=== PATIENT | male | born 1970 | race Caucasian/White ===

== ENCOUNTER 2023-01-14 08:50 | Outpatient (REF) | payer MEDICAID, SELFPAY ==
[2023-01-14 12:15] LABS: Alanine Aminotransferase 22 U/L (0-40); Albumin Level 4.2 g/dL (3.5-5.0); Alkaline Phosphatase 61 U/L (39-117); Anion Gap 11 (12-20); Aspartate Amino Transferase 18 U/L (5-37); Bilirubin Total 1.7 mg/dL (0.0-1.0); Blood Urea Nitrogen 17 mg/dL (9-16); Calcium 9.2 mg/dL (8.4-10.2); Carbon Dioxide 29 mmol/L (22-29); Chloride 105 mmol/L (96-108); Cholesterol 199 mg/dL (<200); Estimated Glomerular Filt Rate > 60; Glucose Random 109 mg/dL (60-115); HDL Cholesterol 34 mg/dL (>40); LDL Cholesterol Calculated 138 mg/dL (<100); Potassium 3.6 mmol/L (3.3-5.1); Sodium 141 mmol/L (135-145); Total Protein 7.7 g/dL (6.5-8.0); Triglycerides 138 mg/dL (<150)
== END 2023-01-14 08:51 | disposition home or self-care (01) ==
LOC: HO.HHCL 08:50
PROVIDERS: Visit Provider Internal Medicine Geriatric Medicine
DX: R73.03 Prediabetes (principal); E78.00 Pure hypercholesterolemia, unspecified
CPT/HCPCS: 36415; 80053; 80061

== ENCOUNTER 2023-01-21 08:13 | Outpatient (REF) | payer MEDICAID, SELFPAY ==
[2023-01-21 11:35] LABS: MANUAL DIFF FLAG NO
[2023-01-21 12:00] LABS: Basophils Absolute Auto 0.1 X10*3/uL (0.0-0.2); Basophils Percent Auto 0.7 % (0-2); Eosinophils Absolute Auto 0.1 X10*3/uL (0.0-0.4); Eosinophils Percent Auto 1.6 % (0-4); Hematocrit 45.1 % (42.0-52.0); Hemoglobin 14.3 g/dl (14.0-18.0); Imm Gran Abs Auto 0.03 X10*3/uL (0.00-0.03); Imm Gran Pct Auto 0.4 % (0.0-0.4); Lymphocytes Percent Auto 27.1 % (20-40); Mean Corpuscular HGB Conc 31.7 g/dl (31.0-36.0); Mean Corpuscular Hemoglobin 29.7 pg (27.0-33.0); Mean Corpuscular Volume 93.8 fL (80.0-98.0); Monocytes Absolute Auto 0.6 X10*3/uL (0.1-1.2); Monocytes Percent Auto 8.6 % (2-11); Neutrophils Absolute Auto 4.5 x10*3/uL (2.0-8.3); Neutrophils Percent Auto 61.6 % (45-73); Platelet Count 277 X10*3/uL (160-400); Red Blood Count 4.81 X10*6/uL (4.60-5.80); Red Cell Distribution Width 13.6 % (11.0-16.0); White Blood Count 7.3 X10*3/uL (4.8-10.8)
[2023-01-21 12:34] LABS: Alanine Aminotransferase 22 U/L (0-40); Alkaline Phosphatase 57 U/L (39-117); Aspartate Amino Transferase 19 U/L (5-37); Bilirubin Direct 0.3 mg/dL (0.0-0.5); Bilirubin Total 1.2 mg/dL (0.0-1.0); Lactate Dehydrogenase 259 U/L (118-273); Total Protein 7.4 g/dL (6.5-8.0)
[2023-01-21 23:22] LABS: Haptoglobin 134 MG/DL ((30-200))
== END 2023-01-21 08:14 | disposition home or self-care (01) ==
LOC: HO.HHCL 08:13
PROVIDERS: Visit Provider Internal Medicine Geriatric Medicine
DX: E80.6 Other disorders of bilirubin metabolism (principal)
CPT/HCPCS: 36415; 80076; 83010; 83615; 85025

== ENCOUNTER 2023-06-17 08:01 | Outpatient (REF) | payer MEDICAID, SELFPAY ==
[2023-06-17 12:25] LABS: Anion Gap 15 (12-20); Blood Urea Nitrogen 18 mg/dL (9-16); Calcium 9.2 mg/dL (8.4-10.2); Carbon Dioxide 24 mmol/L (22-29); Chloride 105 mmol/L (96-108); Estimated Glomerular Filt Rate > 60; Glucose Random 100 mg/dL (60-115); Potassium 3.8 mmol/L (3.3-5.1); Sodium 140 mmol/L (135-145)
[2023-06-17 13:12] LABS: Prostate Specific Antigen 1.74 ng/mL (<0.05-4.0)
== END 2023-06-17 08:02 | disposition home or self-care (01) ==
LOC: HO.HHCL 08:01
PROVIDERS: Visit Provider Internal Medicine Geriatric Medicine
DX: I10 Essential (primary) hypertension (principal); Z12.5 Encounter for screening for malignant neoplasm of prostate
CPT/HCPCS: 36415; 80048; 84153

== ENCOUNTER 2023-12-13 10:58 | Outpatient (REF) | payer MEDICAID, SELFPAY ==
[2023-12-13 14:24] LABS: Alanine Aminotransferase 25 U/L (0-40); Albumin Level 4.1 g/dL (3.5-5.0); Alkaline Phosphatase 54 U/L (39-117); Anion Gap 11 (12-20); Aspartate Amino Transferase 21 U/L (5-37); Bilirubin Total 1.2 mg/dL (0.0-1.0); Blood Urea Nitrogen 15 mg/dL (9-16); Calcium 9.1 mg/dL (8.4-10.2); Carbon Dioxide 28 mmol/L (22-29); Chloride 106 mmol/L (96-108); Cholesterol 218 mg/dL (<200); Estimated Glomerular Filt Rate > 60; Glucose Random 98 mg/dL (60-115); HDL Cholesterol 38 mg/dL (>40); LDL Cholesterol Calculated 155 mg/dL (<100); Potassium 3.9 mmol/L (3.3-5.1); Sodium 141 mmol/L (135-145); Total Protein 7.5 g/dL (6.5-8.0); Triglycerides 125 mg/dL (<150)
== END 2023-12-13 10:59 | disposition home or self-care (01) ==
LOC: HO.HHCL 10:58
PROVIDERS: Visit Provider Internal Medicine Geriatric Medicine
DX: I10 Essential (primary) hypertension (principal); Z53.20 Procedure and treatment not carried out because of patient's decision for unspecified reasons; L21.9 Seborrheic dermatitis, unspecified
CPT/HCPCS: 36415; 80053; 80061

== ENCOUNTER 2024-12-11 14:21 | Outpatient (REF) | payer MEDICAID, SELFPAY ==
[2024-12-11 16:14] LABS: MANUAL DIFF FLAG NO
[2024-12-11 16:20] LABS: Hematocrit 45.1 % (42.0-52.0); Hemoglobin 14.5 g/dl (14.0-18.0); Imm Gran Abs Auto 0.07 X10*3/uL (0.00-0.03); Imm Gran Pct Auto 0.5 % (0.0-0.4); Lymphocytes Absolute Auto 2.1 X10*3/uL (1.2-4.9); Mean Corpuscular HGB Conc 32.2 g/dl (31.0-36.0); Mean Corpuscular Hemoglobin 30.0 pg (27.0-33.0); Mean Corpuscular Volume 93.2 fL (80.0-98.0); NRBC Abs Auto 0.000 X10*3/uL (0.0-0.012); NRBC Pct Auto 0.0 /100WBC (0.0-0.2); Platelet Count 277 X10*3/uL (160-400); Red Blood Count 4.84 X10*6/uL (4.60-5.80); White Blood Count 12.8 X10*3/uL (4.8-10.8)
[2024-12-11 16:41] LABS: Alanine Aminotransferase 22 U/L (0-40); Albumin Level 4.3 g/dL (3.5-5.0); Alkaline Phosphatase 61 U/L (39-117); Anion Gap 11 (12-20); Aspartate Amino Transferase 17 U/L (5-37); Blood Urea Nitrogen 15 mg/dL (9-16); Calcium 8.9 mg/dL (8.4-10.2); Carbon Dioxide 28 mmol/L (22-29); Chloride 105 mmol/L (96-108); Cholesterol 193 mg/dL (<200); Estimated Glomerular Filt Rate > 60; HDL Cholesterol 39 mg/dL (>40); Potassium 4.2 mmol/L (3.3-5.1); Sodium 140 mmol/L (135-145); Total Protein 7.7 g/dL (6.5-8.0); Triglycerides 144 mg/dL (<150)
[2024-12-11 16:42] LABS: Hemoglobin A1C 150.1154 umol/L
[2024-12-11 16:50] LABS: Prostate Specific Antigen 1.64 ng/mL (<0.05-4.0)
== END 2024-12-11 14:22 | disposition home or self-care (01) ==
LOC: HO.HHCL 14:21
PROVIDERS: PCP Internal Medicine Geriatric Medicine; Visit Provider Internal Medicine
DX: R10.32 Left lower quadrant pain (principal); R73.03 Prediabetes; R03.0 Elevated blood-pressure reading, without diagnosis of hypertension; E78.00 Pure hypercholesterolemia, unspecified; E66.9 Obesity, unspecified; Z53.20 Procedure and treatment not carried out because of patient's decision for unspecified reasons; Z12.5 Encounter for screening for malignant neoplasm of prostate
CPT/HCPCS: 36415; 80053; 80061; 83036; 84153; 85025; 85652

== ENCOUNTER 2024-12-12 14:32 | Inpatient (IN) | payer MEDICAID, SELFPAY ==
--- OUTSIDE RECORDS SUMMARY | 2024-12-11 13:40 | XMS_ITS | Encounter Summary ---
Author Organization [employer] Address [address] [place] [address] 7 [place] [address] Care Team Providers Care Information Assurance Analyst Name Role Phone Name, Marv SALAZAR Primary Care Provider [phone] Reason for Visit * Reason Comments Abdominal Pain CO LLQ pain since Encounter Details Date Type Department Care Team (Late st Contact Info) Description 12/11/2024 1:40 PM EST Office Visit [facility] [address] [place] [address] [phone] Tamara Contreras MD [address] [place] [address] Left lower quadrant abdominal pain (Primary Dx); Diverticulosis of colon Social History Tobacco Use Types Packs/Day Years Used Date Smoking Tobacco: Never Smokeless Tobacco: Never Alcohol Use Standard Drinks/Week Comments Never 0 (1 standard drink = 0.6 oz pur e alcohol) Depression Answer Date Recorded Patient Health Questionnaire-9 Score 0 09/22/2023 Patient Health Questionnaire-9 Score 0 09/22/2023 Last PHQ-9: Questionnaire Data Not on file 0 09/22/2023 Housing Stability Answer Date Recorded What is your housing situation today? I have jaki sing 09/22/[address] you li ve. Do you have problems with any of the following? None of the above 09/22/2023 Food Insecurity Answer Date Recorded Within the past 12 months, y ou worried that your food would run out before you got money to buy more: Never True 09/22/2023 Within the past 12 months,th e food you bought just didn't last and you didn't have enough money to get more: Never True Transportation Answer Date Recorded In the past 12 months, has l ack of transportation kept you from medical appts, meetings, work or from getting things needed for daily living? No 09/22/2023 Utilities Answer Date Recorded In the past 12 months, has t he electric, gas, oil or water company threatened to shut off services in your home? No 09/22/2023 Depression Answer Date Recorded Patient Health Questionnaire-2 Score 0 09/22/2023 Internet Access Answer Date Recorded Internet Access Q1 Yes 10/11/2023 Internet Access Q2 Not on file 10/11/2023 Sex and Gender Information Value Date Recorded Sex Assigned at Male 12/08/2021 10:23 AM EDT Legal Sex Male 10:23 AM EDT Gender Identity Male 12/08/2021 10:23 AM EDT Sexual Orientation Don't know 12/08/2021 10 :23 AM EDT documented as of this encounter Last Filed Vital Signs Vital Sign Reading Time Taken Comments Blood Pressure 144/88 12/11/2024 1:37 PM EST Pulse 72 12/11/2024 1:37 PM EST Temperature 37.5 C (99.5 F) 12/11/2024 1:37 PM EST Respiratory Rate 18 12/11/2024 1:37 PM EST Oxygen Saturation - - Inhaled Oxygen Concentration - - Weight 117 kg (258 lb 9.6 oz) 12/11/2024 1:37 PM EST Height 177.8 cm (5' 10 ) 12/11/2024 1:37 PM EST Body Mass Index 37.11 12/11/2024 1:37 PM EST documented in this encounter Progress Notes * Tamara Contreras MD - 12/11/2024 1:40 PM EST SUBJECTIVE: Jaziel Barrett is a 54 y.o. year old male who presents for [facility]/abdominal pain. Denies recent illness, injury, or hospitalization. Acute Concerns: Abdominal Pain and Gastrointestinal Symptoms Pat co intermittent lower abdominal pain described as colicky and lasting 7-10 seconds per episode x 2d. The pain is triggered by palpation and sometimes occurs spontaneously, with episodes more pronounced when lying down. Reports associated chills at night x 1, but denies fever, nausea, vomiting, or urinary symptoms. Had diarrhea #1, now resolved, had small BM this AM. on Wednesday morning, stool was described as black in color, but not bloody. No prior similar episodes with fatty or pork foods; this is the first occurrence. Consumed pork and alcohol on Wednesday night prior to symptom onset. Drinks alcohol socially on weekends, denies drug use. Social History Social History Narrative Not on file Problem List[1] Family History[2] Review of Systems Constitutional: Negative for fever. HENT: Negative for congestion, ear pain, rhinorrhea and sore throat. Eyes: Negative for pain and discharge. Respiratory: Negative for cough and shortness of breath. Cardiovascular: Negative for chest pain. Gastrointestinal: Positive for abdominal pain. Negative for constipation, diarrhea and nausea. Endocrine: Negative for polydipsia. Genitourinary: Negative for dysuria and frequency. Musculoskeletal: Negative for arthralgias, back pain and neck pain. Neurological: Negative for dizziness, numbness and headaches. Psychiatric/Behavioral: Negative for agitation. OBJECTIVE: Vitals: 12/11/24 1337 BP: (!) 144/88 Pulse: 72 Resp: 18 Temp: 99.5 ??F (37.5 ??C) Physical Exam Exam conducted with a cottage master present (Nicole Mak MA). Constitutional: Appearance: Normal appearance. HENT: Right Ear: Tympanic membrane and ear canal normal. Left Ear: Tympanic membrane and ear canal normal. Mouth/Throat: Mouth: Mucous membranes are moist. Pharynx: No oropharyngeal exudate or posterior oropharyngeal erythema. Eyes: Pupils: Pupils are equal, round, and reactive to light. Cardiovascular: Rate and Rhythm: Normal rate and regular rhythm. Heart sounds: No murmur heard. Pulmonary: Breath sounds: Normal breath sounds. No wheezing. Abdominal: General: Bowel sounds are normal. Palpations: Abdomen is soft. Tenderness: There is abdominal tenderness in the suprapubic area and left lower quadrant. There is rebound. There is no right CVA tenderness, left CVA tenderness or guarding. Negative signs include De Jesus's sign and McBurney's sign. Genitourinary: Prostate: Normal. Rectum: Normal. Guaiac result negative. No mass, tenderness or anal fissure. Normal anal tone. Musculoskeletal: General: No tenderness. Normal range of motion. Cervical back: Normal range of motion. No tenderness. Skin: General: Skin is warm. Neurological: General: No focal deficit present. Mental Status: He is alert and oriented to person, place, and time. Psychiatric: Mood and Affect: Mood normal. Problem List Items Addressed This Visit Diverticulosis of colon Suspected diverticulitis: - Suspected diverticulitis with colonic inflammation, likely not infectious at this time. - Recommended clear liquid diet (broth, water, clear fluids) for the remainder of the day, with gradual reintroduction of small amounts of rice or pasta in the evening if tolerated. Advised to continue clear liquids and bland diet for 2-3 days, then slowly advance to chicken and other foods as tolerated. - Prescribed Senna lynne for daily BM, hold for diarrhea + Bentyl prn abd pain x 3-4d . - Order labs, will rx abs if evidence of significant inflamation, recurrent fever. - Advised to monitor for fever or worsening symptoms and RTC prn Relevant Medications sennosides (Senokot) 8.6 MG tablet dicyclomine (Bentyl) 10 MG capsule Other Visit Diagnoses Left lower quadrant abdominal pain - Primary Relevant Medications sennosides (Senokot) 8.6 MG tablet dicyclomine (Bentyl) 10 MG capsule Other Relevant Orders CBC auto differential (Completed) Sed Rate by Modified W[place]gren (Completed) Basic Metabolic Panel This note was drafted using Ambient (AI) technology. The patient/patient's guardian has been informed and has consented to the use of this technology: Yes Follow Up: Medications Ordered Prior to Encounter[3] [1] Patient Active Problem List Diagnosis Genital herpes simplex Obesity Prediabetes History of colonoscopy Essential hypertension Chronic left shoulder pain Gilbert syndrome High cholesterol Diverticulosis of colon [2] No family history on file. [3] Current Outpatient Medications on File Prior to Visit Medication Sig Dispense Refill acyclovir (Zovirax) 400 MG tablet TAKE 1 TABLET BY MOUTH THREE TIMES DAILY FOR 10 DAYS 30 tablet 5 atorvastatin (Lipitor) 20 MG tablet Take 1 tablet (20 mg) by mouth Once per day. 30 tablet 11 BENZAC AC WASH 10 % external wash APPLY TOPICALLY EVERY DAY, LEAVE IN SHOWER 237 g 1 Blood Pressure kit Use once a day 1 kit 0 clotrimazole (Lotrimin) 1 % cream APPLY TO AFFECTED AREA(S) AND SURROUNDING AREA(S) TWICE DAILY IN THE MORNING AND EVENING 60 g 2 Diclofenac Sodium 1 % gel APPLY 2 GRAMS TOPICALLY TO AFFECTED AREA(S) TWICE DAILY IN THE MORNING AND AT BEDTIME NEEDED 100 g 3 ibuprofen 600 MG tablet TAKE 1 TABLET BY MOUTH THREE TIMES DAILY 90 tablet 1 lidocaine (Lidoderm) 5 % patch APPLY 1 PATCH TOPICALLY TO SKIN, LEAVE ON FOR 12 HOURS AND OFF FOR 12 HOURS DIRECTED 30 patch 2 No current facility-administered medications on file prior to visit. documented in this encounter Miscellaneous Notes * Patient Education Note - Tamara Contreras MD - 12/11/2024 7:07 PM EST Images from the original note were not included. Patient Education Table of Contents Diverticulitis To view videos and all your education online visit, [email or web address] or scan this QR code with your smartphone. Access to this content will in one year. Diverticulitis Diverticulitis La diverticulitis ocurre cuando la materia fecal (heces) y las bacterias quedan atrapadas en giacomo?as bolsas en el colon llamadas divert?culos. Estas bolsas se pueden formar si usted tiene leidy afecci?n llamada diverticulitis. Cuando la materia fecal y las bacterias quedan atrapadas, pueden causar infecci?n e inflamaci?n. La diverticulitis puede causar dolor intenso de est?geraldine y diarrea. Tambi?n puede generar da?o tisular en el colon. [place] puede causar sangrado u obstrucci?n. En algunos casos, los divert?culos puedenexplotar (romperse). [place] puede hacer que las heces infectadas penetren en otras partes del abdomen. ?Cu?les son las causas? La causa de esta afecci?n es que las heces quedan atrapadas en los divert?culos. [place] permite que las bacterias se reproduzcan. [place] puede generar inflamaci?n e infecci?n. ?Qu?? incrementa el riesgo? Es m?s probable que contraiga esta afecci?n si tiene diverticulosis. Usted tambi?n puede tener m?s riesgo si: Tiene sobrepeso u obesidad. No realiza suficiente actividad f?neisha. Erika alcohol. Fuma. Come denise carne enoc, yessica carne de selin, cerdo o bragg. No consume suficiente fibra. Los alimentos ricos en fibra incluyen frutas, verduras, frijoles, gregorio secos y cereales integrales. Tiene m?s de 40 a?os de edad. ?Cu?les son los signos o s?ntomas? Los s?ntomas de esta afecci?n pueden incluir los siguientes: Dolor y sensibilidad en el abdomen. Tiffanie dolor suele manifestarse en el lado eduardo, anna marie puede ocurrir tambi?n en otras zonas. Fiebre y escalofr?os. N?useas y v?mitos. Calambres. Meteorismo. Cambios en la frecuencia de las deposiciones. [place] en las heces. ?C?mo se diagnostica? Esta afecci?n se diagnostica en funci?n de robb antecedentes m?dicos y de un examen f?sico. Es posible que deba someterse a pruebas para descartar otros motivos que est?n causando la afecci?n. Estas pruebas pueden incluir lo siguiente: An?lisis de arnulfo. An?lisis realizados en el pis (orina). Exploraci?n por tomograf?a computarizada (TC) del abdomen. Es posible que necesite someterse a leidy colonoscop?a. Se trata de un estudio que se realiza para examinar todo el intestino grueso. Librado el estudio, se coloca un tubo en la abertura de las nalgas (ano) y luego se lo introduce en el recto, el colon y otras partes del intestino grueso. Tiffanie estudio se realiza para observar los divert?culos. Tambi?n se puede dori si hay algo m?s que pueda estar causando los s?ntomas. ?C?mo se trata? La mayor?a de los casos son leves y pueden tratarse en el hogar. Es posible que le indiquen lo siguiente: Kaye analg?sicos de venta marshall. Beber solamente l?quidos kiya. Kaye antibi?ticos. [place]. Puede que los casos m?s graves deban tratarse en el hospital. El tratamiento puede incluir: No comer ni beber nada. Kaye analg?sicos. Recibir antibi?ticos por v?a intravenosa. Recibir l?quidos y alimentos por v?a intravenosa. Cirug?a. Siga estas instrucciones en fregoso casa: Medicamentos Use los medicamentos de venta marshall y los recetados solamente yessica se lo haya indicado el m?dico. Estos incluyen suplementos de fibra, probi?ticos y medicamentos para ablandar las heces (laxantes). Si le recetaron antibi?ticos, t?melos yessica se lo haya indicado el m?dico. No deje de usar el antibi?kyle aunque comience a sentirse mejor. Preg?ntele al m?dico si el medicamento recetado le impide conducir o usar maquinaria. Comida y bebida Siga la dieta yessica se lo haya indicado el m?dico. Es posible que solo deba comer y beber l?quidos. Despu?s de que los s?ntomas mejoren, es posible que pueda volver a leidy dieta m?s normal. Le pueden indicar que coma al menos 25 gramos (25?g) de fibra por d?a. La fibra hace que sea m?s f?cil defecar. Las flower saludables de fibra incluyen: ? Bayas. Leidy taza tiene de 4 a 8?g de fibra. ? Frijoles y lentejas. La mitad de leidy taza tiene de 5 a 8?g de fibra. ? Verduras de hoja charlene. Leidy taza tiene 4?g de fibra. Evite comer carne enoc. Instrucciones generales No consuma julio?n producto que contenga nicotina o tabaco. Estos productos incluyen cigarrillos, tabaco para mascar y aparatos de vapeo, yessica los cigarrillos electr?nicos. Si necesita ayuda para dejar de fumar, consulte al m?dico. Realice al menos 30 minutos de ejercicio, 3 veces por semana. Manuela ejercicio con leidy intensidad suficiente yessica para aumentar la frecuencia card?caryl y provocar sudor. Comun?quese con un m?dico si: El dolor empeora. Las deposiciones no vuelven a la normalidad. Los s?ntomas no mejoran con el tratamiento. Los s?ntomas empeoran de manera repentina. Tiene fiebre. Vomita m?s de leidy vez. Las heces son sanguinolentas, negras o alquitranadas. Esta informaci?n no tiene yessica fin reemplazar el consejo del m?dico. Aseg?rese de hacerle al m?dicocualquier pregunta que tenga. Document Released: 2005-11-04 Document Updated: 2022-11-26 Document Reviewed: 2022-11-26 Elsevier Patient Education ? 2024 [employer] * Assessment & Plan Note - Tamara Contreras MD - 12/11/2024 5:10 PM EST Associated Problem(s): Diverticulosis of colon Suspected diverticulitis: - Suspected diverticulitis with colonic inflammation, likely not infectious at this time. - Recommended clear liquid diet (broth, water, clear fluids) for the remainder of the day, with gradual reintroduction of small amounts of rice or pasta in the evening if tolerated. Advised to continue clear liquids and bland diet for 2-3 days, then slowly advance to chicken and other foods as tolerated. - Prescribed Senna lynne for daily BM, hold for diarrhea + Bentyl prn abd pain x 3-4d . - Order labs, will rx abs if evidence of significant inflamation, recurrent fever. - Advised to monitor for fever or worsening symptoms and RTC prn documented in this encounter Plan of Treatment Upcoming Encounters Date Type Department Care Team (Late st Contact Info) Description 12/13/2024 4:00 PM EST Office Visit [facility] [address] [place] [phone] Name, MD Marv [address] [place] [phone] 12/19/2024 9:30 AM EST Office Visit [address] [phone] Name, MD Marv [address] [place] [phone] Scheduled Orders Name Type Priority Associated Diagnoses Orde r Schedule Basic Metabolic Panel Lab Routine Left lower quadrant abdominal pain Expected: 12/11/2024 (Approximate), Expires: 12/11/2025 documented as of this encounter Procedures Procedure Name Priority Date/Time Associated Diagnosis Comments CBC WITH AUTO DIFFERENTIAL Routine 12/11/2024 2:27 PM EST Left lower quadrant abdominal pain SED RATE BY MODIFIED WESTERGREN Routine 12/11/2024 2:27 PM EST Left lower quadrant abdominal pain documented in this encounter Results * (ABNORMAL) Sed Rate by Modified [place] (12/11/2024 2:27 PM EST) Erythrocyte Sedimentation Rate 22(H) 0 - 15 MM/HR [facility] Comment:Patients with polycy themia and many hemoglobin abnormalitiesmay have depressed sed rates whereas patients with anemiamay have elevated sed rates. Blood Venous blood specimen / Unknown 12/11/2024 2:27 PM EST 12/11/2024 4:08 PM EST us Tamara Contreras MD LAB BLOOD ORDERABLES Fin al Result [facility] [address] [place] [phone] * (ABNORMAL) CBC auto differential (12/11/2024 2:27 PM EST) White Blood Count 12.8(H) 4.8 - 10.8 X10*3/uL [facility] Red Blood Count 4.84 4.60 - 5.80 X10*6/uL [facility] Hemoglobin 14.5 14.0 - 18.0 g/dl [facility] Hematocrit 45.1 42.0 - 52.0 % [facility] Mean Corpuscular Volume 93.2 80.0 - 98.0 fL [facility] Mean Corpuscular Hemoglobin 30.0 27.0 - 33.0 pg [facility] Mean Corpuscular HGB Conc 32.2 31.0 - 36.0 g/dl [facility] Red Cell Distribution Width 13.5 11.0 - 16.0 % [facility] Platelet Count 277 160 - 400 X10*3/uL [facility] Mean Platelet Volume 9.7 9.4 - 12.4 fL [facility] Neutrophils Percent Auto 73.2(H) 45 - 73 % [facility] Imm Gran Pct Auto 0.5(H) 0.0 - 0.4 % [facility] Lymphocytes Percent Auto 16.4(L) 20 - 40 % [facility] Monocytes Percent Auto 8.8 2 - 11 % [facility] Eosinophils Percent Auto 0.6 0 - 4 % [facility] Basophils Percent Auto 0.5 0 - 2 % [facility] NRBC Pct Auto 0.0 0.0 - 0.2 /100WBC [facility] Neutrophils Absolute Auto 9.3(H) 2.0 - 8.3 x10*3/uL [facility] Imm Gran Abs Auto 0.07(H) 0.00 - 0.03 X10*3/uL [facility] Lymphocytes Absolute Auto 2.1 1.2 - 4.9 X10*3/uL [facility] Monocytes Absolute Auto 1.1 0.1 - 1.2 X10*3/uL [facility] Eosinophils Absolute Auto 0.1 0.0 - 0.4 X10*3/uL [facility] Basophils Absolute Auto 0.1 0.0 - 0.2 X10*3/uL [facility] NRBC Abs Auto 0.000 0.0 - 0.012 X10*3/uL [facility] Blood Venous blood specimen / Unknown 12/11/2024 2:27 PM EST 12/11/2024 4:08 PM EST us Tamara Contreras MD LAB BLOOD ORDERABLES Fin al Result Performing Organization Address City/State/[facility] Co de Phone Number [facility] [address] [place] [phone] documented in this encounter Visit Diagnoses Diagnosis Left lower quadrant abdominal pain- Primary Diverticulosis of colon Diverticulosis of colon (without mention of hemorrhage) documented in this encounter Additional Health Concerns Assessment Noted Time PHQ-9 Depression Total Score: 0 09/22/19 24 3:03 PM EDT documented as of this encounter Care Teams Information Assurance Analyst Relationship Specialty Start Date End Date Name, MD Marv [address] [place] [address] PCP - General Family Medicine 03/28/15 documented as of this encounter
--- OUTSIDE RECORDS SUMMARY | 2024-12-11 13:40 | XMS_ITS | Encounter Summary ---
Author Organization [employer] Address [address] [place] [address] [address] [place] [address] Care Team Providers Care Beauty Culture Teacher Name Role Phone Name, Marv SALAZAR Primary Care Provider [phone] Reason for Visit * Reason Comments Abdominal Pain CO LLQ pain since Encounter Details Date Type Department Care Team (Late st Contact Info) Description 12/11/2024 1:40 PM EST Office Visit [facility] [address] [place] [address] [phone] Tamara Contreras MD [address] [place] [address] Left lower quadrant abdominal pain (Primary Dx); [...] ??C) Physical Exam Exam conducted with a camper assembler present (Nicole Mak MA). Constitutional: Appearance: Normal [...] videos and all your education online visit, [email or web address] or scan this QR code with your [...] puede generar da?o tisular en el colon. [place] puede causar sangrado u obstrucci?n. En algunos casos, los divert?culos puedenexplotar (romperse). [place] puede hacer que las heces infectadas penetren en otras partes del abdomen. ?Cu?les son las causas? La causa de esta afecci?n es que las heces quedan atrapadas en los divert?culos. [place] permite que las bacterias se reproduzcan. [place] puede generar inflamaci?n e infecci?n. ?Qu?? incrementa [...] marshall. Beber solamente l?quidos kiya. Kaye antibi?ticos. [place]. Puede que los casos m?s graves deban [...] Reviewed: 2022-11-26 Elsevier Patient Education ? 2024 [employer] * Assessment & Plan Note - [...] Care Team (Late st Contact Info) Description 12/19/2024 9:30 AM EST Office Visit [facility] [address] [place] [address] Name, MD aMrv [address] [place] [phone] Scheduled Orders Name Type Priority Associated Diagnoses [...] Results * (ABNORMAL) Sed Rate by Modified [place] (12/11/2024 2:27 PM EST) Erythrocyte Sedimentation Rate 22(H) 0 - 15 MM/HR [facility] Comment:Patients with polycy themia and many hemoglobin abnormalitiesmay have depressed sed rates whereas patients with anemiamay have elevated sed rates. Blood Venous blood specimen / Unknown 12/11/2024 2:27 PM EST 12/11/2024 4:08 PM EST us Tamara Contreras MD LAB BLOOD ORDERABLES Fin al Result [facility] [address] [place], [place] [phone] * (ABNORMAL) CBC auto differential (12/11/2024 2:27 PM EST) White Blood Count 12.8(H) 4.8 - 10.8 X10*3/uL [facility] Red Blood Count 4.84 4.60 - 5.80 X10*6/uL [facility] Hemoglobin 14.5 14.0 - 18.0 g/dl [facility] Hematocrit 45.1 42.0 - 52.0 % [facility] Mean Corpuscular Volume 93.2 80.0 - 98.0 fL [facility] Mean Corpuscular Hemoglobin 30.0 27.0 - 33.0 pg [facility] Mean Corpuscular HGB Conc 32.2 31.0 - 36.0 g/dl [facility] Red Cell Distribution Width 13.5 11.0 - 16.0 % [facility] Platelet Count 277 160 - 400 X10*3/uL [facility] Mean Platelet Volume 9.7 9.4 - 12.4 fL [facility] Neutrophils Percent Auto 73.2(H) 45 - 73 % [facility] Imm Gran Pct Auto 0.5(H) 0.0 - 0.4 % [facility] Lymphocytes Percent Auto 16.4(L) 20 - 40 % [facility] Monocytes Percent Auto 8.8 2 - 11 % [facility] Eosinophils Percent Auto 0.6 0 - 4 % [facility] Basophils Percent Auto 0.5 0 - 2 % [facility] NRBC Pct Auto 0.0 0.0 - 0.2 /100WBC [facility] Neutrophils Absolute Auto 9.3(H) 2.0 - 8.3 x10*3/uL [facility] Imm Gran Abs Auto 0.07(H) 0.00 - 0.03 X10*3/uL [facility] Lymphocytes Absolute Auto 2.1 1.2 - 4.9 X10*3/uL [facility] Monocytes Absolute Auto 1.1 0.1 - 1.2 X10*3/uL [facility] Eosinophils Absolute Auto 0.1 0.0 - 0.4 X10*3/uL [facility] Basophils Absolute Auto 0.1 0.0 - 0.2 X10*3/uL [facility] NRBC Abs Auto 0.000 0.0 - 0.012 X10*3/uL [facility] Blood Venous blood specimen / Unknown 12/11/2024 2:27 PM EST 12/11/2024 4:08 PM EST us Tamara Contreras MD LAB BLOOD ORDERABLES Fin al Result [facility] [address] [place] [phone] documented in this encounter Visit Diagnoses Diagnosis Left lower quadrant abdominal pain- Primary Diverticulosis of colon Diverticulosis of colon (without mention of hemorrhage) documented in this encounter Additional Health Concerns Assessment Noted Time PHQ-9 Depression Total Score: 0 09/22/19 24 3:03 PM EDT documented as of this encounter Care Teams Beauty Culture Teacher Relationship Specialty Start Date End Date Name, MD Marv [address] [place] [address] PCP - General Family Medicine 03/28/15 documented as of this encounter
[2024-12-12] VITALS (7 sets, daily range): BP systolic 110–151; BP diastolic 62–80; PULSE 67–97; RESP 16–20; TEMP 36.6–37.6; O2SAT 94–100; BMI 36.6
--- NOTE | ~2024-12-12 | XR_ITS ---
CLINICAL HISTORY: trauma --- Additional Notes or Special Instructions: Collared @ 1626 - 2 view chest x-ray Comparison: None provided Findings: Hypoventilatory exam. No consolidation or effusion. Normal size heart. No acute fracture. IMPRESSION: 1. No acute findings. This document has been electronically signed by: Carrie Antonio MD on 12/12/2024 19:32:08
--- NOTE | ~2024-12-12 | CT_ITS ---
CLINICAL HISTORY: trauma CT head without contrast Comparison: None Findings: No intracranial mass, midline shift, hydrocephalus, or acute hemorrhage. No CT evidence of acute ischemia. Visualized paranasal sinuses and mastoid air cells normal. Orbits unremarkable. No skull fracture Impression: 1. No acute intracranial abnormalities. This document has been electronically signed by: Ken Cabrera MD on 12/12/2024 17:44:11
--- NOTE | ~2024-12-12 | CT_ITS ---
CLINICAL HISTORY: left lower abdominal pain Exam: Contrast-enhanced CT abdomen and pelvis with multiplanar reformats. Comparison: None. Findings: CT abdomen: Lung bases are clear. Liver is free of focal lesions and ductal dilatation. Gallbladder reveals cholelithiasis, without CT evidence of cholecystitis. Spleen appears unremarkable. Pancreas and adrenal glands appear unremarkable. Right kidney reveals an 11 mm interpolar hypodensity (23; 357), too small to characterize although likely small cyst. Kidneys otherwise unremarkable. No free intraperitoneal fluid or retroperitoneal masses or adenopathy. Abdominal aorta is normal caliber. Bowel loops reveal an inflamed sigmoid colonic diverticulum with pericolonic stranding and mild segmental colonic wall thickening (23; 678 -703). There is evidence of micro perforation with punctate extraluminal foci of gas (25; 49 -45 and 23; 587-611).. No other abnormal bowel wall thickening or distention. The appendix is unremarkable. CT pelvis: No pelvic masses, fluid or adenopathy. Prostate gland and seminal vesicles are unremarkable. Urinary bladder is free of gross filling defects. Osseous structures reveal no destructive osseous lesions. Impression: 1. Sigmoid colonic diverticulitis with evidence of micro perforation. No evidence of abscess. This document has been electronically signed by: Ken Cabrera MD on 12/12/2024 17:48:45
--- NOTE | ~2024-12-12 | XR_ITS ---
EXAMINATION: XR ABDOMEN KUB CLINICAL INDICATION: LLQ pain, constipation COMPARISON: None available. TECHNIQUE: AP view of the abdomen. FINDINGS: Bowel gas pattern is normal/nonspecific. There is no focally dilated loop. There is a moderate amount of retained fecal material seen throughout the colon and rectum in keeping with mild constipation. There are surgical clips in the right pelvic region. There is no organomegaly. No large abdominal mass. Oval calcifications in the right upper quadrant are likely gallstones. There is no focal osseous abnormality. XR/XR KUB IMPRESSION: 1. Mild to moderate constipation. No bowel obstruction. 2. Gallstones suspected. Electronically signed by: Donald Shields MD 12/12/2024 03:38 PM EST
--- NOTE | ~2024-12-12 | CT_ITS ---
CLINICAL HISTORY: trauma CT cervical spine without contrast Comparison: None provided Findings: Straightening of the normal cervical lordosis. No significant degenerative change. No acute fractures or dislocations. Visualized intracranial contents are unremarkable. Soft tissues of the neck are normal. Lung apices are clear. IMPRESSION: No acute traumatic abnormality of the cervical spine. This document has been electronically signed by: Carrie Antonio MD on 12/12/2024 18:12:03
--- NOTE | 2024-12-12 14:44 | ED_ITS ---
HPI - General Adult General Chief complaint: Abdominal Pain Stated complaint: LOWER ABD PAIN,CONSTIPATION X3D PER EMS Time Seen by Provider: 12/12/24 16:10 Source: patient, family, RN notes reviewed and old records reviewed Mode of arrival: EMS Limitations: no limitations History of Present Illness ED Provider: Quinn BENZ narrative: 54-year-old male presents for evaluation of abdominal pain and reported constipation. The patient reports he has not had a bowel movement for the last 3 days. He went to urgent care yesterday He reports that he was given a medication to help with constipation but it was not successful. He does not know the name of the medication he was prescribed. He is complaining of left lower abdominal pain. Denies any black or bloody stool. Apparently the patient walked into the bathroom in the waiting room and had a syncopal episode. In his unclear if he was sitting down having a bowel movements happened or if he was standing. The patient was placed in a C-collar and brought back to room 26 pain An EKG was performed, repeat vitals were obtained He has pain with the left eye. Related Data Allergies Allergy/AdvReac Type Severity Reaction Status Date / Time No Known Allergies (No Known Allergy Verified 12/12/24 14:45 Allergies*) Review of Systems 2 Constitutional: Constitutional: Denies anorexia, Denies body ache(s), Denies chills, Denies fever(s), Denies frequent falls and Reports headache(s) Eyes: Eyes: Denies blurry vision ENT: Denies dizziness and Reports headache(s) Cardiovascular: Cardiovascular: Denies chest pain, Reports syncope and Denies dyspnea on exertion Respiratory: Respiratory: Denies dyspnea on exertion Gastrointestinal: Gastrointestinal: Reports abdominal pain, Denies melena, Denies hematochezia, Reports constipation, Denies nausea, Denies vomiting and Denies hematemesis Musculoskeletal: Musculoskeletal: Denies back pain Integumentary/Breasts: Skin/Breast: Denies rash Neurologic: Denies dizziness, Reports syncope, Denies frequent falls and Reports headache(s) Psychiatric: Psychiatric: Denies anxiety [facility] Social History Social History Alcohol intake: current Alcohol intake frequency: holidays/special occasions only Smoked in Last 30 Days: No Use of substances other than those prescribed or required for medical reasons: No Advance Directives: No Advance Directives Information Provided: No Do you have a plan to hurt others: No Plan Physical Exam ED Vital Signs: Vital Signs - 24 hr 12/12/24 14:41 12/12/24 16:15 12/12/24 16:30 Temperature 97.8 F 98.1 F Pulse Rate 79 67 71 Respiratory Rate 20 16 16 Blood Pressure 151/74 H 110/62 113/70 Pulse Oximetry 99 100 94 Oxygen Delivery Method Room Air Room Air Room Air 12/12/24 16:45 Temperature Pulse Rate 68 Respiratory Rate 16 Blood Pressure 112/64 Pulse Oximetry 94 Oxygen Delivery Method Room Air BMI result Body Mass Index 36.6 Const General: healthy appearing, comfortable, no acute distress, alert and awake Nutritional Appearance: well nourished Orientation/consciousness: patient oriented x3 HENMT Other: Small abrasion above the left eye Eyes Eyelids: Yes eyelids normal Conjunctivae: conjunctivae normal Sclerae: sclerae normal Corneas: corneas normal Pupils: Equal, round and reactive pupils present EOM: EOMs intact bilaterally Resp Effort & Inspection: normal respiratory effort, able to speak in complete sentences and not labored Cardio Rate: regular rate Rhythm: regular rhythm GI Other: Soft, obese abdomen Inspection: No distended and Yes obesity Palpation (GI): Soft to palpation, not firm, Tenderness to palpation present (GI) in the LLQ, Guarding due to palpation present (GI) in the LLQ and not rigid Back/Spine/Pelvis Cervical Spine: collar present Skin General skin exam: elasticity normal Neuro General: patient oriented x3 Cranial nerves: Yes CN's II-XII intact bilaterally, Yes Equal, round and reactive pupils present and Yes Bilaterally intact EOM present Cognition (Neuro): normal cognition Extrem Other: Moving all extremities well without any obvious deformities Course Course Course Narrative: This is a rapid medical exam performed by Francisco Florence NP: Additional HPI, ROS, PE not included below will be deferred to primary provider. Patient is a 54y/o M presenting to the ED with complaint of LLQ abd pain and constipation. Last BM Wednesday, went to [facility] yesterday, was prescribed an unknown medication and was told to come to the ED if no BM. Plan: Labs, UA, kub Reevaluation(s) Reevaluation #1: CT scan resulted in discussed with the patient using cotton ball bagger. The head CT shows no evidence of traumatic injury, cervical spine CT shows evidence of traumatic injury. His abdominal pelvic CT scan shows diverticulitis in the sigmoid region with evidence of microperforation, no abscess. I discussed with general surgery, Farzaneh who agrees IV antibiotics, bowel rest and a medical admission, no indication for surgery at this time. I did add on blood cultures and lactic acid Time: 18:25 Medications Administered Discontinued Medications Generic Name Dose Route Start Last Admin Trade Name Freq PRN Reason Stop Dose Admin Iohexol 100 ml 12/12/24 17:03 12/12/24 17:04 Iohexol 350 Mg/Ml 100 Ml Infus..Btl IV 12/12/24 17:04 85 ml ONCE ONE Administration Medical Decision Making Medical Decision Making [facility] Narrative: 54-year-old male presents for evaluation abdominal pain with constipation over the last 3 days. He also had a syncopal episode while in the waiting room. His vital signs remained stable, his EKG after syncopal episode was normal sinus rhythm and unchanged when compared to his previous from 2019. I suspect his syncope was likely a vasovagal episode while attempting to have a bowel movement. Plan for CT scan of the brain, cervical spine, troponin, chest x-ray. Given his abdominal tenderness and guarding we will get a CT scan of the pelvis to evaluate for surgical abdomen. He may have diverticulitis or colonic as contribute to his abdominal pain with constipation. He is afebrile. Has a mild leukocytosis to 12.9 1000 with a left shift. No significant electrolyte abnormalities. His total bilirubin is elevated at 2.0. He has no right upper quadrant tenderness. Therefore gallbladder ultrasound was deferred in favor of CT scan Differential Diagnosis Differential Diagnoses: The differential diagnosis associated with the presentation includes Syncope Vasovagal syncope Abdominal pain Constipation Diverticulitis AAA Admission/Observation Consideration of admission/observation: Escalation of care including admission/observation considered Consult Healthcare Provider Management of the patient was discussed with: Hospitalist and Nursing Service Director (general surgery) Lab Data [facility] Lab Attestation statement: I reviewed the patient's lab results. As above 12/12/24 15:49 12/12/24 15:49 Labs: Lab Results 12/12/24 12/12/24 Range/Units 15:49 16:44 WBC 12.9 H (4.8-10.8) X10*3/uL RBC 4.82 (4.60-5.80) X10*6/uL Hgb 14.4 (14.0-18.0) g/dl Hct 44.0 (42.0-52.0) % MCV 91.3 (80.0-98.0) fL MCH 29.9 (27.0-33.0) pg MCHC 32.7 (31.0-36.0) g/dl RDW 13.2 (11.0-16.0) % Plt Count 258 (160-400) X10*3/uL MPV 9.0 L (9.4-12.4) fL Immature Gran % (Auto) 0.5 H (0.0-0.4) % Neut % (Auto) 74.0 H (45-73) % Lymph % (Auto) 14.0 L (20-40) % Cannon % (Auto) 10.4 (2-11) % Eos % (Auto) 0.7 (0-4) % Baso % (Auto) 0.4 (0-2) % Lymph # (Auto) 1.8 (1.2-4.9) X10*3/uL Cannon # (Auto) 1.4 H (0.1-1.2) X10*3/uL Eos # (Auto) 0.1 (0.0-0.4) X10*3/uL Baso # (Auto) 0.1 (0.0-0.2) X10*3/uL Abs Immat Gran (auto) 0.07 H (0.00-0.03) X10*3/uL Absolute Neuts (auto) 9.6 H (2.0-8.3) x10*3/uL Absolute Nucleated RBC 0.000 (0.0-0.012) X10*3/uL Nucleated RBC % (auto) 0.0 (0.0-0.2) /100WBC Sodium 140 (135-145) mmol/L Potassium 3.8 (3.3-5.1) mmol/L Chloride 102 (96-108) mmol/L Carbon Dioxide 30 H (22-29) mmol/L Anion Gap 12 (12-20) BUN 13 (9-16) mg/dL Creatinine 0.87 (0.5-1.4) mg/dL Estim Creat Clear Calc 123.6 Estimated GFR > 60 Random Glucose 105 (60-115) mg/dL Calcium 8.8 (8.4-10.2) mg/dL Total Bilirubin 2.0 H (0.0-1.0) mg/dL AST 18 (5-37) U/L ALT 16 (0-40) U/L Alkaline Phosphatase 62 (39-117) U/L Troponin I High Sens < 2.7 (<3.5-35.0) ng/L Total Protein 7.7 (6.5-8.0) g/dL Albumin 4.2 (3.5-5.0) g/dL Independent Interpretation I performed an independent interpretation of an: EKG (Normal sinus rhythm with a rate of [address] segment elevation or depressions. No change when compared to previous from 5 years ago, nondiagnostic EKG) Discharge Plan Discharge Clinical Impression: Syncope, Diverticulitis Patient Disposition: Admitted As Inpatient Print Language: Macedonian
[2024-12-12 15:54] LABS: MANUAL DIFF FLAG NO
[2024-12-12 15:56] LABS: Hematocrit 44.0 % (42.0-52.0); Hemoglobin 14.4 g/dl (14.0-18.0); Imm Gran Abs Auto 0.07 X10*3/uL (0.00-0.03); Imm Gran Pct Auto 0.5 % (0.0-0.4); Lymphocytes Absolute Auto 1.8 X10*3/uL (1.2-4.9); Mean Corpuscular HGB Conc 32.7 g/dl (31.0-36.0); Mean Corpuscular Hemoglobin 29.9 pg (27.0-33.0); Mean Corpuscular Volume 91.3 fL (80.0-98.0); NRBC Abs Auto 0.000 X10*3/uL (0.0-0.012); NRBC Pct Auto 0.0 /100WBC (0.0-0.2); Platelet Count 258 X10*3/uL (160-400); Red Blood Count 4.82 X10*6/uL (4.60-5.80); White Blood Count 12.9 X10*3/uL (4.8-10.8)
--- NOTE | 2024-12-12 16:04 | ECG_ITS ---
Test Reason : SYNCOPE Blood Pressure : */* mmHG Vent. Rate : 70 BPM Atrial Rate : 70 BPM P-R Int : 178 ms QRS Dur : 100 ms QT Int : 398 ms P-R-T Axes : 35 -34 9 degrees QTcB Int : 429 ms Normal sinus rhythm Left axis deviation Inferior infarct , age undetermined Abnormal ECG When compared with ECG of 12-Jun-2019 16:00, No significant change was found Referred By: Kirit Ball Electronically Signed By: Fernie Pérez
[2024-12-12 16:10] LABS: Alanine Aminotransferase 16 U/L (0-40); Albumin Level 4.2 g/dL (3.5-5.0); Alkaline Phosphatase 62 U/L (39-117); Anion Gap 12 (12-20); Aspartate Amino Transferase 18 U/L (5-37); Blood Urea Nitrogen 13 mg/dL (9-16); Calcium 8.8 mg/dL (8.4-10.2); Carbon Dioxide 30 mmol/L (22-29); Chloride 102 mmol/L (96-108); Creatinine Clr Calc Pharmacy 123.6; Estimated Glomerular Filt Rate > 60; Potassium 3.8 mmol/L (3.3-5.1); Sodium 140 mmol/L (135-145); Total Protein 7.7 g/dL (6.5-8.0)
[2024-12-12] MEDS: iohexoL 350 MG/ML 100 ML INFUS..BTL IV (17:04)
[2024-12-12 17:10] LABS: Troponin-I High Sensitivity < 2.7 ng/L (<3.5-35.0)
--- NOTE | 2024-12-12 18:14 | PC.NURSE ---
patient came in from after fall in bathroom- incident report was completed by tent worker. Patient presently collared awaiting results of head/brain/spine ct scans, iv was inserted, labs drawn, ua obtained, ekg obtained, monitoring specialist applied. pt c/o 06/17 abd pain- provider aware, call jean within reach, plan of care ongoing
--- OUTSIDE RECORDS SUMMARY | 2024-12-12 18:35 | XMS_ITS | Clinical Summary ---
Author Organization [employer] Address [address] [place] [address] 7 [place] [address] Care Team Providers Care Tub Tender Name Role Phone Name, Marv SALAZAR Primary Care Provider [phone] Allergies No known active allergies Medications atorvastatin (Lipitor) 20 MG tabletIndicatio ns:High cholesterol Take 1 tablet (20 mg) by mouth Once per day. 30 tablet 11 024 2024 Active acyclovir (Zovirax) 400 MG tablet TAKE 1 TABLET BY MOUTH THREE TIMES DAILY FOR 10 DAYS 30 tablet 5 025 Active lidocaine (Lidoderm) 5 % patch APPLY 1 PATCH TOPICALLY TO SKIN, LEAVE ON FOR 12 HOURS AND OFF FOR 12 HOURS DIRECTED 30 patch 2 025 Active clotrimazole (Lotrimin) 1 % cream APPLY TO AFFECTED AREA(S) AND SURROUNDING AREA(S) TWICE DAILY IN THE MORNING AND EVENING 60 g 2 025 Active BENZAC AC WASH 10 % external washIndications :Folliculitis APPLY TOPICALLY EVERY DAY, LEAVE IN SHOWER 237 g 1 025 Active Blood Pressure kitIndications: Essential hypertension Use once a day 1 kit 025 Active Diclofenac Sodium 1 % gel APPLY 2 GRAMS TOPICALLY TO AFFECTED AREA(S) TWICE DAILY IN THE MORNING AND AT BEDTIME NEEDED 100 g 3 025 Active ibuprofen 600 MG tabletIndicatio ns:Chronic left shoulder pain TAKE 1 TABLET BY MOUTH THREE TIMES DAILY 90 tablet 1 025 Active sennosides (Senokot) 8.6 MG tablet Take 1 tablet (8.6 mg) by mouth if needed each day for constipation for up to 10 days. 10 tablet 025 2024 Active dicyclomine (Bentyl) 10 MG capsule Take 1 capsule (10 mg) by mouth Every 6-8 hours as needed (abd pain) for up to 10 days. 30 capsule 025 2024 Active Diclofenac Sodium 1 % gel APPLY 2 GRAMS TO AFFECTED AREA(S) TWICE DAILY TWICE DAILY IN THE MORNING AND AT BEDTIME NEEDED 100 g 3 025 2024 Discontinued ibuprofen 600 MG tabletIndicatio ns:Chronic left shoulder pain TAKE 1 TABLET BY MOUTH THREE TIMES DAILY 90 tablet 1 025 2024 Discontinued(R eorder (will not trigger notification to Pharmacy)) Active Problems Problem Noted Date Diagnosed Date Diverticulosis of colon 12/11/2024 Assessment & Plan (12/11/2024 5:10 PM EST): Suspected diverticulitis: - Suspected diverticulitis with colonic [...] fever or worsening symptoms and RTC prn High cholesterol 06/13/2024 Gilbert syndrome 01/25/2023 Chronic left shoulder pain 08/05/2022 Prediabetes 03/10/2022 History of colonoscopy 03/10/2022 Overview (03/10/2022): Normal [address] Helms at [place] Essential hypertension 01/22/2017 Genital herpes simplex 10/23/2015 Obesity 04/08/2015 Encounters Date Type Department Care Team Description 12/12/2024 Orders Only [facility] External Provider, [facility] 12/12/2024 Patient Outreach [facility] [address] [place] [address] Marv Workman MD Pre-visit Planning ([facility]OH unable to reach [facility]) 12/11/2024 1:40 PM EST Office Visit [facility] [address] [place] [phone] Tamara Contreras MD Left lower quadrant abdominal pain (Primary Dx); Diverticulosis of colon 12/11/2024 Results Follow-Up [facility] [address] [place] [address] Tamara Contreras MD CBC auto differential, Sed Rate by Modified [place] 12/11/2024 Travel 12/04/2024 Refill [facility] [address] [place] [address] Marv Workman MD Chronic left shoulder pain 11/22/2024 Refill [facility] [address] [place] [phone] Marv Workman MD Chronic left shoulder pain 11/17/2024 Refill [facility] [address] [place] [address] Marv Workman MD 11/06/2024 Refill [facility] [address] [place] [phone] Marv Workman MD Essential hypertension 10/26/2024 Telephone [facility] [address] [place] [phone] ArnettEstephania castrejon MA chart prep 10/06/2024 Refill [facility] [address] [place] [phone] Marv Workman MD Folliculitis 09/20/2024 Telephone [facility] [address] [place] [phone] Marv Workman MD Referral from Last 3 Months Immunizations Immunization Administration Dates Next Due Influenza injectable quadriv alent preservative free 12/30/2021,11/19/2020,11/06/2019 TD (adult), 2 Lf tetanus tox oid, preservative free, adsorbed 09/18/2020 Tdap 05/21/2010 Zoster, Recombinant 03/10/2022,01/06/2022 Social History Tobacco Use Types Packs/Day Years Used Date Smoking Tobacco: Never Smokeless Tobacco: Never Tobacco Cessation:Counseling Given: Not Answered Alcohol Use Standard Drinks/Week Comments Never 0 (1 standard drink = 0.6 oz pur e alcohol) Depression Answer Date Recorded Patient Health Questionnaire-9 Score 0 09/22/2023 Patient Health Questionnaire-9 Score 0 09/22/2023 Last PHQ-9: Questionnaire Data Not on file 0 09/22/2023 Housing Stability Answer Date Recorded What is your housing situation today? I have jaki cynthia 09/22/[address] you li [...] Don't know 12/08/2021 10 :23 AM EDT Last Filed Vital Signs Vital Sign Reading Time Taken Comments Blood Pressure 144/88 12/11/2024 1:37 PM EST Pulse 72 12/11/2024 1:37 PM EST Temperature 37.5 C (99.5 F) 12/11/2024 1:37 PM EST Respiratory Rate 18 12/11/2024 1:37 PM EST Oxygen Saturation 98% 06/13/2024 3:15 PM EDT Inhaled Oxygen Concentration - - Weight 117 kg (258 lb 9.6 oz) 12/11/2024 1:37 PM EST Height 177.8 cm (5' 10 ) 12/11/2024 1:37 PM EST Body Mass Index 37.11 12/11/2024 1:37 PM EST Plan of Treatment Upcoming Encounters Date Type Department Care Team (Late st Contact Info) Description 12/13/2024 4:00 PM EST Office Visit [facility] [address] [place] [phone] Name, MD Marv [address] [place] [address] 12/19/2024 9:30 AM EST Office Visit [address] [address] Name, MD Marv [address] [place] [phone] Health Maintenance Due Date Last Done Comments CT Colonography 1970 Dental Oral Exam 1970 Dental Prophylaxis 1970 Dental X-Ray: Bitewings 1970 Dental X-Ray: Full Mouth 1970 FIT DNA/Cologuard 1970 FIT 1970 FOBT 1970 HIV Screening 1970 Sigmoidoscopy 1970 Hepatitis C Screening 02/07/1988 Hepatitis B Vaccines (1 of 3 - 19+ 3-dose series) 1989 Pneumococcal Vaccine: 50+ Years (1 of 1 - PCV) 02/07/2020 Colonoscopy 01/24/2024 01/23/2014 Colorectal Cancer Screening 01/24/2024 Depression Screening 09/21/2024 09/22/2023, 09/22/19 24 SDOH Screening 09/21/2024 09/22/2023 COVID-19 Vaccine ( season) 2024 02/18/2021, 06/25/2020, 05/31/2020 Influenza Vaccine (#1) 2024 , 11/19/2020, 11/06/2019 Alcohol/Substance Use Screening 06/13/2025 06/13/2024 Disability Screening 06/13/2025 06/13/2024 Diabetes: Hemoglobin A1C 12/11/2025 025, 12/13/2023, 03/10/2022 Tobacco Screening 12/11/2025 12/11/2024 Lipid Panel 12/11/2029 12/11/2024, 1105/2023, 01/14/2023, Additional history exists DTaP/Tdap/Td Vaccines (3 - Td or Tdap) 09/18/2030 09/18/2020, 05/21/2010 RSV Patients and Patients Aged 60 years or older (1 - 1-dose 75+ series) 2045 Zoster Vaccines Completed 03/10/2022, 01/06/2022 HIB Vaccines Aged Out No longer eligi ble based on patient's age to complete this topic HPV Vaccines Aged Out No longer eligi ble based on patient's age to complete this topic Hepatitis A Vaccines Aged Out No long er eligible based on patient's age to complete this topic IPV Vaccines Aged Out No longer eligi ble based on patient's age to complete this topic Meningococcal B Vaccine Aged Out No l onger eligible based on patient's age to complete this topic Meningococcal Vaccine Aged Out No shravan kaden eligible based on patient's age to complete this topic RSV under 20 months Aged Out No longe r eligible based on patient's age to complete this topic Rotavirus Vaccines Aged Out No longer eligible based on patient's age to complete this topic Procedures Procedure Name Priority Date/Time Associated Diagnosis Comments CT CERVICAL SPINE WO CONTRAST Routine 12/12/2024 6:[address] ABDOMEN PELVIS W CONTRAST Routine 12/12/2024 5:[address] HEAD WO CONTRAST Routine 12/12/2024 5 :44 PM EST HIGH SENSITIVITY TROPONIN I Routine 12/12/2024 4:44 PM EST COMPREHENSIVE METABOLIC PANEL Routine 12/12/2024 3:49 PM EST CBC WITH AUTO DIFFERENTIAL Routine 12/12/2024 3:49 PM EST XR KUB AND UPRIGHT 2 VIEWS Routine 12/12/2024 3:28 PM EST SED RATE BY MODIFIED WESTERGREN Routine 12/11/2024 2:27 PM EST Left lower quadrant abdominal pain CBC WITH AUTO DIFFERENTIAL Routine 12/11/2024 2:27 PM EST Left lower quadrant abdominal pain PSA, TOTAL Routine 12/11/2024 2:27 PM EST Prediabetes Elevated blood pressure reading High cholesterol Obesity (BMI 30-39.9) Refusal of statin medication by patient Screening for prostate cancer HEMOGLOBIN A1C Routine 12/11/2024 2:27 PM EST Prediabetes Elevated blood pressure reading High cholesterol Obesity (BMI 30-39.9) Refusal of statin medication by patient LIPID PANEL, STANDARD Routine 12/11/2024 2:27 PM EST Prediabetes Elevated blood pressure reading High cholesterol Obesity (BMI 30-39.9) Refusal of statin medication by patient COMPREHENSIVE METABOLIC PANEL Routine 12/11/2024 2:27 PM EST Prediabetes Elevated blood pressure reading High cholesterol Obesity (BMI 30-39.9) Refusal of statin medication by patient HM COLONOSCOPY Routine 01/23/2014 10:36 AM EST from Last 3 Months or Most Recently Relevant to Health Maintenance Results * CT Cervical Spine w/o Contrast (12/12/2024 6:12 PM EST) Anatomical Region Laterality Modality Spine, C-spine Computed Tomogra phy 12/12/2024 6:12 PM EST Narrative 12/12/2024 6:13 PM EST [address] [address] [address] Scan Report Signed Patient: Jaziel Barrett MR#: [id number] : 1970 Acct:[id number] Age/Sex: 54 / M ADM Date: 12/12/24 Loc: HO.ED Attending Dr: Ordering Physician: Kirit Ball Date of Service: 12/12/24 Procedure(s): CT cervical spine wo IV con Accession Number(s): [id number] cc: Marv Workman MD; Kirit Ball Report Number: [id number]: Total DLP = 809.38 mGy-cm Reason for Exam: trauma CLINICAL HISTORY: trauma CT cervical spine without contrast Comparison: None provided Findings: Straightening of the normal cervical lordosis. No significant degenerative change. No acute fractures or dislocations. Visualized intracranial contents are unremarkable. Soft tissues of the neck are normal. Lung apices are clear. IMPRESSION: No acute traumatic abnormality of the cervical spine. This document has been electronically signed by: Carrie Antonio MD on 12/12/2024 18:12:03 Dictated By: Carrie Antonio MD Signed By: <Electronically signed by Carrie Antonio MD in OV> 12/12/241812 DD/ 11 TD/TT: 12/12/241811 Motorcycle Tester: Procedure Note Donotuseinterpreter, Image - 12/12/[address] [place] [address] [address] Scan Report Signed Patient: Jaziel Barrett GMR#: [id number] : 1970Acct:[id number] Age/Sex: 54 / MADM Date: 12/12/24 Loc: .ED Attending Dr: Ordering Physician: Kirit Ball Date of Service: 12/12/24 Procedure(s): CT cervical spine wo IV con Accession Number(s): [id number] cc: Marv Workman MD; Kirit Ball Report Number: [id number]: Total DLP = 809.38 mGy-cm Reason for Exam: trauma CLINICAL HISTORY: trauma CT cervical spine without contrast Comparison: None provided Findings: Straightening of the normal cervical lordosis. No significant degenerative change. No acute fractures or dislocations. Visualized intracranial contents are unremarkable. Soft tissues of the neck are normal. Lung apices are clear. IMPRESSION: No acute traumatic abnormality of the cervical spine. This document has been electronically signed by: Carrie Antonio MD on 12/12/2024 18:12:03 Dictated By: Carrie Antonio MD Signed By: <Electronically signed by Carrie Antonio MD in OV> 12/12/241812 DD/ 11 TD/TT: 12/12/241811 Motorcycle Tester: [facility] External Provider IMG CT PROCEDURES Final Result * CT Abdomen Pelvis w/ Contrast (12/12/2024 5:48 PM EST) Anatomical Region Laterality Modality Body, Pelvis, Abdomen Computed T omography 12/12/2024 5:48 PM EST Narrative 12/12/2024 5:50 PM EST [place] [address] CT Scan Report Signed Patient: Jaziel Barrett MR#: [id number] : 1970 Acct:[id number] Age/Sex: 54 / M ADM Date: 12/12/24 Loc: .ED Attending Dr: Ordering Physician: Kirit Ball Date of Service: 12/12/24 Procedure(s): CT abdomen pelvis w IV con Accession Number(s): [id number] cc: NameMarv MD; Kirit Ball Report Number: [id number]: Total DLP = 1083.18 mGy-cm Reason for Exam: left lower abdominal pain CLINICAL HISTORY: left lower abdominal pain Exam: Contrast-enhanced CT abdomen and pelvis with multiplanar reformats. Comparison: None. Findings: CT abdomen: Lung bases are clear. Liver is free of focal lesions and ductal dilatation. Gallbladder reveals cholelithiasis, without CT evidence of cholecystitis. Spleen appears unremarkable. Pancreas and adrenal glands appear unremarkable. Right kidney reveals an 11 mm interpolar hypodensity (23; 357), too small to characterize although likely small cyst. Kidneys otherwise unremarkable. No free intraperitoneal fluid or retroperitoneal masses or adenopathy. Abdominal aorta is normal caliber. Bowel loops reveal an inflamed sigmoid colonic diverticulum with pericolonic stranding and mild segmental colonic wall thickening (23; 678 -703). There is evidence of micro perforation with punctate extraluminal foci of gas (25; 49 -45 and 23; 587-611).. No other abnormal bowel wall thickening or distention. The appendix is unremarkable. CT pelvis: No pelvic masses, fluid or adenopathy. Prostate gland and seminal vesicles are unremarkable. Urinary bladder is free of gross filling defects. Osseous structures reveal no destructive osseous lesions. Impression: 1. Sigmoid colonic diverticulitis with evidence of micro perforation. No evidence of abscess. This document has been electronically signed by: Ken Cabrera MD on 12/12/2024 17:48:45 Dictated By: Ken Cabrera MD Signed By: <Electronically signed by Ken Cabrera MD in OV> 12/12/241748 DD/ 47 TD/TT: 12/12/241747 Motorcycle Tester: Procedure Note Donotuseinterpreter, Image - 12/12/[address] [place] [address] [address] Scan Report Signed Patient: Jaziel Barrett GMR#: [id number] : 1970Acct:[id number] Age/Sex: 54 / MADM Date: 12/12/24 Loc: HO.ED Attending Dr: Ordering Physician: Kirit Ball Date of Service: 12/12/24 Procedure(s): CT abdomen pelvis w IV con Accession Number(s): [id number] cc: Name,Marv SALAZAR; Kirit Ball Report Number: [id number]: Total DLP = 1083.18 mGy-cm Reason for Exam: left lower abdominal pain CLINICAL HISTORY: left lower abdominal pain Exam: Contrast-enhanced CT abdomen and pelvis with multiplanar reformats. Comparison: None. Findings: CT abdomen: Lung bases are clear. Liver is free of focal lesions and ductal dilatation. Gallbladder reveals cholelithiasis, without CT evidence of cholecystitis. Spleen appears unremarkable. Pancreas and adrenal glands appear unremarkable. Right kidney reveals an 11 mm interpolar hypodensity (23; 357), too small to characterize although likely small cyst. Kidneys otherwise unremarkable. No free intraperitoneal fluid or retroperitoneal masses or adenopathy. Abdominal aorta is normal caliber. Bowel loops reveal an inflamed sigmoid colonic diverticulum with pericolonic stranding and mild segmental colonic wall thickening (23; 678 -703). There is evidence of micro perforation with punctate extraluminal foci of gas (25; 49 -45 and 23; 587-611).. No other abnormal bowel wall thickening or distention. The appendix is unremarkable. CT pelvis: No pelvic masses, fluid or adenopathy. Prostate gland and seminal vesicles are unremarkable. Urinary bladder is free of gross filling defects. Osseous structures reveal no destructive osseous lesions. Impression: 1. Sigmoid colonic diverticulitis with evidence of micro perforation. No evidence of abscess. This document has been electronically signed by: Ken Cabrera MD on 12/12/2024 17:48:45 Dictated By: Ken Cabrera MD Signed By: <Electronically signed by Ken Cabrera MD in OV> 12/12/241748 DD/ 47 TD/TT: 12/12/241747 Motorcycle Tester: [facility] External Provider IMG CT PROCEDURES Final Result * CT Head w/o Contrast (12/12/2024 5:44 PM EST) Anatomical Region Laterality Modality Head, Neck Computed Tomogra phy 12/12/2024 5:44 PM EST Narrative 12/12/2024 5:45 PM EST [place] [address] CT Scan Report Signed Patient: Jaziel Barrett MR#: [id number] : 1970 Acct:[id number] Age/Sex: 54 / M ADM Date: 12/12/24 Loc: HO.ED Attending Dr: Ordering Physician: Kirit Ball Date of Service: 12/12/24 Procedure(s): CT head/brain wo IV con Accession Number(s): [id number] cc: Marv Workman MD; Kirit Ball Report Number: [id number]: Total DLP = 856.42 mGy-cm Reason for Exam: trauma CLINICAL HISTORY: trauma CT head without contrast Comparison: None Findings: No intracranial mass, midline shift, hydrocephalus, or acute hemorrhage. No CT evidence of acute ischemia. Visualized paranasal sinuses and mastoid air cells normal. Orbits unremarkable. No skull fracture Impression: 1. No acute intracranial abnormalities. This document has been electronically signed by: Ken Cabrera MD on 12/12/2024 17:44:11 Dictated By: Ken Cabrera MD Signed By: <Electronically signed by Ken Cabrera MD in OV> 12/12/241743 DD/ 43 TD/TT: 12/12/241743 Motorcycle Tester: Procedure Note Donotuseinterpreter, Image - 12/12/[address] [place] [address] [address] Scan Report Signed Patient: Jaziel Barrett GMR#: [id number] : 1970Acct:[id number] Age/Sex: 54 / MADM Date: 12/12/24 Loc: HO.ED Attending Dr: Ordering Physician: Kirit Ball Date of Service: 12/12/24 Procedure(s): CT head/brain wo IV con Accession Number(s): [id number] cc: Name,Marv SALAZAR; Kirit Ball Report Number: [id number]: Total DLP = 856.42 mGy-cm Reason for Exam: trauma CLINICAL HISTORY: trauma CT head without contrast Comparison: None Findings: No intracranial mass, midline shift, hydrocephalus, or acute hemorrhage. No CT evidence of acute ischemia. Visualized paranasal sinuses and mastoid air cells normal. Orbits unremarkable. No skull fracture Impression: 1. No acute intracranial abnormalities. This document has been electronically signed by: Ken Cabrera MD on 12/12/2024 17:44:11 Dictated By: Ken Cabrera MD Signed By: <Electronically signed by Ken Cabrera MD in OV> 12/12/241743 DD/ 43 TD/TT: 12/12/241743 Motorcycle Tester: [facility] External Provider IMG CT PROCEDURES Final Result * High Sensitivity Troponin I (12/12/2024 4:44 PM EST) TROPONIN I HIGH SENSITIVITY <2.7 <3.5 - 35.0 ng/L [facility] Comment:The Vee high sens itivity Troponin-I results should beused in conjunction with other diagnostic information suchas ECG, clinical observations and information, and patientsymptoms to aid in the diagnosis of VT. 12/12/2024 4:44 PM EST 12/12/2024 4:48 PM EST us Generic External Data Provider LAB BLOOD ORDERAB LES Final Result [facility] [address] [place] [address] [phone] * (ABNORMAL) CBC auto differential (12/12/2024 3:49 PM EST) Only the most recent of2 resultswithin the time period is included. [facility] White Blood Count 12.9(H) 4.8 - 10.8 X10*3/uL [facility] Red Blood Count 4.82 4.60 - 5.80 X10*6/uL [facility] Hemoglobin 14.4 14.0 - 18.0 g/dl [facility] Hematocrit 44.0 42.0 - 52.0 % [facility] Mean Corpuscular Volume 91.3 80.0 - 98.0 fL [facility] Mean Corpuscular Hemoglobin 29.9 27.0 - 33.0 pg [facility] Mean Corpuscular HGB Conc 32.7 31.0 - 36.0 g/dl [facility] Red Cell Distribution Width 13.2 11.0 - 16.0 % [facility] Platelet Count 258 160 - 400 X10*3/uL [facility] Mean Platelet Volume 9.0(L) 9.4 - 12.4 fL [facility] Neutrophils Percent Auto 74.0(H) 45 - 73 % [facility] Imm Gran Pct Auto 0.5(H) 0.0 - 0.4 % [facility] Lymphocytes Percent Auto 14.0(L) 20 - 40 % [facility] Monocytes Percent Auto 10.4 2 - 11 % [facility] Eosinophils Percent Auto 0.7 0 - 4 % [facility] Basophils Percent Auto 0.4 0 - 2 % [facility] NRBC Pct Auto 0.0 0.0 - 0.2 /100WBC [facility] Neutrophils Absolute Auto 9.6(H) 2.0 - 8.3 x10*3/uL [facility] Imm Gran Abs Auto 0.07(H) 0.00 - 0.03 X10*3/uL [facility] Lymphocytes Absolute Auto 1.8 1.2 - 4.9 X10*3/uL [facility] Monocytes Absolute Auto 1.4(H) 0.1 - 1.2 X10*3/uL [facility] Eosinophils Absolute Auto 0.1 0.0 - 0.4 X10*3/uL [facility] Basophils Absolute Auto 0.1 0.0 - 0.2 X10*3/uL [facility] NRBC Abs Auto 0.000 0.0 - 0.012 X10*3/uL [facility] 12/12/2024 3:49 PM EST 12/12/2024 3:52 PM EST us Generic External Data Provider LAB BLOOD ORDERAB LES Final Result [facility] [address] [place] [phone] * (ABNORMAL) Comprehensive Metabolic Panel (12/12/2024 3:49 PM EST) Only the most recent of2 resultswithin the time period is included. Sodium 140 135 - 145 mmol/L [facility] Potassium 3.8 3.3 - 5.1 mmol/L [facility] Comment:Slight Hemolysis.Int erpret result with caution. Chloride 102 96 - 108 mmol/L [facility] Carbon Dioxide 30(H) 22 - 29 mmol/L [facility] Anion Gap 12 12 - 20 [facility] Urea Nitrogen (BUN) 13 9 - 16 mg/dL [facility] Creatinine, Serum 0.87 0.5 - 1.4 mg/dL [facility] Creatinine Clr Calc Pharmacy 123.6 [facility] Comment:eGFR (calculated fro m the MDRD study equation) and eCrCl(calculated from the Cockcroft-Gault equation) are based ondifferent parameters and may not yield comparable results.If eCrCl result is absurd, please check patient'sheight/weight. Estimated Glomerular Filt Rate >60 [facility] Comment:Chronic Kidney Disea se: Estimated GFR < 60 mL/min/1.94n5Avbxbr Kidney Disease: Estimated GFR < 15 mL/min/1.73m2 Glucose 105 60 - 115 mg/dL [facility] Calcium 8.8 8.4 - 10.2 mg/dL [facility] Bilirubin, Total 2.0(H) 0.0 - 1.0 mg/dL [facility] Aspartate Amino Transferase 18 5 - 37 U/L [facility] Comment:Slight Hemolysis.Int erpret result with caution. Alanine Aminotransferase 16 0 - 40 U/L [facility] Total Protein 7.7 6.5 - 8.0 g/dL [facility] Albumin Level 4.2 3.5 - 5.0 g/dL [facility] Alkaline Phosphatase 62 39 - 117 U/L [facility] 12/12/2024 3:49 PM EST 12/12/2024 3:52 PM EST us Generic External Data Provider LAB BLOOD ORDERAB LES Final Result [facility] [address] [place] [address] [phone] * XR KUB and Upright 2 Views (12/12/2024 3:28 PM EST) Anatomical Region Laterality Modality Radiographic Iman ging 12/12/2024 3:28 PM EST Narrative 12/12/2024 3:41 PM EST [address] [address] XRay Report Signed Patient: Jaziel Barrett MR#: [id number] : 1970 Acct:[id number] Age/Sex: 54 / M ADM Date: 12/12/24 Loc: HO.ED Attending Dr: Ordering Physician: Petrona Florence NP Date of Service: 12/12/24 Procedure(s): XR KUB Accession Number(s): [id number] cc: Marv Workman MD; Petrona Florence NP Reason for Exam: LLQ pain, constipation EXAMINATION: XR ABDOMEN KUB CLINICAL INDICATION: LLQ pain, constipation COMPARISON: None available. TECHNIQUE: AP view of the abdomen. FINDINGS: Bowel gas pattern is normal/nonspecific. There is no focally dilated loop. There is a moderate amount of retained fecal material seen throughout the colon and rectum in keeping with mild constipation. There are surgical clips in the right pelvic region. There is no organomegaly. No large abdominal mass. Oval calcifications in the right upper quadrant are likely gallstones. There is no focal osseous abnormality. XR/XR KUB IMPRESSION: 1. Mild to moderate constipation. No bowel obstruction. 2. Gallstones suspected. Electronically signed by: Donald Shields MD 12/12/2024 03:38 PM [facility] Dictated By: Donald Shields MD Signed By: <Electronically signed by Donald Shields MD in OV> 12/12/24 1538 DD/ 1528 TD/TT: 12/12/24 1530 Motorcycle Tester: Procedure Note Donotuseinterpreter, Image - 12/12/[address] [address] XRay Report Signed Patient: Jaziel Barrett GMR#: [id number] : 1970Acct:[id number] Age/Sex: 54 / MADM Date: 12/12/24 Loc: .ED Attending Dr: Ordering Physician: Petrona Florence NP Date of Service: 12/12/24 Procedure(s): XR KUB Accession Number(s): [id number] cc: Marv Workman MD; Petrona Florence NP Reason for Exam: LLQ pain, constipation EXAMINATION: XR ABDOMEN KUB CLINICAL INDICATION: LLQ pain, constipation COMPARISON: None available. TECHNIQUE: AP view of the abdomen. FINDINGS: Bowel gas pattern is normal/nonspecific. There is no focally dilated loop. There is a moderate amount of retained fecal material seen throughout the colon and rectum in keeping with mild constipation. There are surgical clips in the right pelvic region. There is no organomegaly. No large abdominal mass. Oval calcifications in the right upper quadrant are likely gallstones. There is no focal osseous abnormality. XR/XR KUB IMPRESSION: 1. Mild to moderate constipation. No bowel obstruction. 2. Gallstones suspected. Electronically signed by: Donald Shields MD 12/12/2024 03:38 PM EST RP Dictated By: Donald Shields MD Signed By: <Electronically signed by Donald Shields MD in OV> 12/12/24 1538 DD/ 1528 TD/TT: 12/12/24 1530 Motorcycle Tester: [facility] External Provider IMG XR PROCEDURES Final Result * (ABNORMAL) Sed Rate by Modified [place] (12/11/2024 2:27 PM EST) Pathologist [facility] Erythrocyte Sedimentation Rate 22(H) 0 - 15 MM/HR [facility] Comment:Patients with polycy themia and many hemoglobin abnormalitiesmay have depressed sed rates whereas patients with anemiamay have elevated sed rates. Blood Venous blood specimen / Unknown 12/11/2024 2:27 PM EST 12/11/2024 4:08 PM EST Tamara Contreras MD LAB BLOOD ORDERABLES Fin al Result [facility] [address] [place] [phone] * PSA,Total (12/11/2024 2:27 PM EST) Pathologist [facility] Prostate Specific Antigen 1.64 <0.05 - 4.0 ng/mL [facility] Comment:PSA methodology: Abb geeta Alihilary i ChemiluminescentMicroparticle Immunoassay (CMIA) Blood Venous blood specimen / Unknown 12/11/2024 2:27 PM EST 12/11/2024 4:08 PM EST us Marv Workman MD LAB BLOOD ORDERABLES Final Resul t Performing Organization Address [facility] Co de Phone Number [facility] [address] [place] [phone] * Hemoglobin A1c (12/11/2024 2:27 PM EST) Hemoglobin A1c 5.8 <6.0 % [facility] Comment:Hemoglobin A1C Refer ence Range Adults: 4.8 - 6.0 % Non diabetic: < 6.0 % Goal: < 7.0 %Additional Action Suggested: > 8.0 %Note: Hemoglobin A1c results are invalid for patients with abnormal amounts of HbF. Blood transfusions may impact the HbA1c concentration in the patient sample. Estimated Average Glucose 120 mg/dL [facility] Comment:eAG = Estimated ave rage glucose which is %A1C expressed asaverage glucose, using the formula of the N2Z-HhxtyzyRuxnpoy Glucose study (ADAG), Diabetes Care, Vol.31,#8,Sep. 2007 Blood Venous blood specimen / Unknown 12/11/2024 2:27 PM EST 12/11/2024 4:08 PM EST us Marv Workman MD LAB BLOOD ORDERABLES Final Resul t Performing Organization Address City/[facility] Co de Phone Number [facility] [address] [place] [phone] [phone] * (ABNORMAL) Lipid Panel, Standard (12/11/2024 2:27 PM EST) Triglycerides 144 <150 mg/dL [facility] Comment:Desirable Triglyceri de: less than 150 mg/dLBorderline High Triglyceride 150-199 mg/dLHigh Triglyceride: 200-499 mg/dLVery High Triglyceride: greater than or equal to 5OO mg/dL Cholesterol 193 <200 mg/dL [facility] Comment:Desirable Cholestero l: less than 200 mg/dLBorderline High Cholesterol: 200-239 mg/dLHigh Cholesterol: greater than 239 mg/dL LDL Cholesterol Calculated 126(H) <100 mg/dL [facility] Comment:Desirable LDL: less than 100 mg/dLNear Optimal/Above Optimal LDL: 110- 129 mg/dLBorderline High LDL: 130-159 mg/dLHigh LDL: 160-189 mg/dLVery High LDL: greater than or equal to 190 mg/dL HDL Cholesterol 39(L) >40 mg/dL [facility] Comment:Desirable HDL: great er than 40 mg/dL Note: This HDL assay may give artificially low results in patients with liver disease. Blood Venous blood specimen / Unknown 12/11/2024 2:27 PM EST 12/11/2024 4:08 PM EST Marv Name LAB BLOOD ORDERABLES Final Resul t [facility] [address] [place] [phone] * Hm Colonoscopy (01/23/2014 10:36 AM EST) Colonoscopy Normal Normal Narrative Tricia Allie - 01/23/2014 10:36 AM EST Recommended 10 year follow up Historical Provider HEALTH MAINTENANCE Final Result from Last 3 Months or Most Recently Relevant to Health Maintenance [facility] Care Teams Tub Tender Relationship Specialty Start Date End Date Name, MD Marv [address] [place] [phone] PCP - General Family Medicine 03/28/15
--- OUTSIDE RECORDS SUMMARY | 2024-12-12 18:35 | XMS_ITS | Encounter Summary ---
Author Organization [employer] Address [address] [place] [address] 7 [place] [address] Care Team Providers Care Manager Equipment Name Role Phone Name, Marv SALAZAR Primary Care Provider [phone] Reason for Visit * Reason Comments Pre-visit Planning SDOH unable to reach LVM Encounter Details Date Type Department Care Team ([facility] st Contact Info) Description 12/12/2024 Patient Outreach [facility] [address] [place], [place] [id number] Name, MD Marv [address] [place] [address] Pre-visit Planning (SDOH unable to reach LVM) Social History Tobacco Use Types Packs/Day Years [...] is your housing situation today? I have jakiabram marie 09/22/[address] you li [...] AM EDT documented as of this encounter Progress Notes * Mariza [place] - 12/12/2024 3:23 PM EST NIKOLE Castillo placed outbound call to patient to complete pre-visit planning. No answer at this time. Patient name and were not confirmed. CC left voicemail requesting return call. Direct contactinformation provided. documented in this encounter Plan of Treatment Upcoming Encounters Date Type Department Care Team ([facility] st Contact Info) Description 12/13/2024 4:00 PM EST Office Visit [address] [address] Name, MD Marv [address] [place] [phone] 12/19/2024 9:30 AM EST Office Visit [address] [address] NameMarv MD [address] [place] [address] documented as of this encounter Visit Diagnoses Not on filedocumented in this encounter Additional Health Concerns Assessment Noted Time PHQ-9 Depression Total Score: 0 09/22/19 24 3:03 PM EDT documented as of this encounter Care Teams Manager Equipment Relationship Specialty Start Date End Date Name, MD Marv [address] [place] [address] PCP - General Family Medicine 03/28/15 documented as of this encounter
--- OUTSIDE RECORDS SUMMARY | 2024-12-12 18:35 | XMS_ITS | Encounter Summary ---
Author Organization [employer] Address [address] [place] [address] 7 [place] [address] Care Team Providers Care Gore Stitcher Name Role Phone Name, Marv SALAZAR Primary Care Provider [phone] Reason for Visit * Reason Comments Med Refill Encounter Details Date Type Department Care Team ([facility] st Contact Info) Description 11/22/2024 Refill [facility] [address] [place], [place] [phone] Name, MD Marv [address] [place] [address] Chronic left shoulder pain Social History Tobacco Use Types Packs/Day Years [...] your housing situation today? I have jaki marie 09/22/[address] you [...] AM EDT documented as of this encounter Plan of Treatment Upcoming Encounters Date Type Department Care Team (Late st Contact Info) Description 12/13/2024 4:00 PM EST Office Visit [address] [address] NameMarv MD [address] [place] [phone] 12/19/2024 9:30 AM EST Office Visit [address] [address] NameMarv MD [address] [place] [address] documented as of this encounter Visit Diagnoses Diagnosis Chronic left shoulder pain Pain in joint, shoulder region documented in this encounter Additional Health Concerns Assessment Noted Time PHQ-9 Depression Total Score: 0 09/22/19 24 3:03 PM EDT documented as of this encounter Care Teams Gore Stitcher Relationship Specialty Start Date End Date NameMarv MD [address] [place] [phone] PCP - General Family Medicine 03/28/15 documented as of this encounter
--- OUTSIDE RECORDS SUMMARY | 2024-12-12 18:35 | XMS_ITS | Encounter Summary ---
Author Organization [employer] Address [address] [place] [address] 7 [place] [address] Care Team Providers Care Supervising Fire Marshal Name Role Phone Name, Marv SALAZAR Primary Care Provider [phone] Encounter Details Date Type Department Care Team (Latest Contact Info) Description 12/11/2024 Travel Social History Tobacco Use Types Packs/Day Years [...] Description 12/13/2024 4:00 PM EST Office Visit [address] [address] NameMarv MD [address] [place] [address] 12/19/2024 9:30 AM EST Office Visit [address] [address] Name, MD Marv [address] [place] [address] documented as of this encounter Visit Diagnoses Not on filedocumented in this encounter Additional Health Concerns Assessment Noted Time PHQ-9 Depression Total Score: 0 09/22/19 24 3:03 PM EDT documented as of this encounter Care Teams Supervising Fire Marshal Relationship Specialty Start Date End Date NameMarv MD [address] [place] [phone] PCP - General Family Medicine 03/28/15 documented as of this encounter
--- OUTSIDE RECORDS SUMMARY | 2024-12-12 18:35 | XMS_ITS | Encounter Summary ---
Author Organization [employer] Address [address] [place] [address] [address] [place] [address] Care Team Providers Care Licensed Physical Therapist Assistant Name Role Phone Name, Marv SALAZAR Primary Care Provider [phone] Reason for Visit * Reason Onset Date Comments Results 12/11/2024 Encounter Details Date Type Department Care Team ([facility] st Contact Info) Description 12/11/2024 Results Follow-Up [facility] [address] [place] [phone] Tamara Contreras MD [address] [place] [address] CBC auto differential, Sed Rate by Modified [place] Social History Tobacco Use Types Packs/Day Years [...] AM EDT documented as of this encounter Miscellaneous Notes * Telephone Encounter - Abhishek Lancaster RN - 12/12/2024 3:36 PM EST TC x2 placed to patient [phone] using [facility] #[place] [id number] regarding below message. RN informed patient of his lab results showing mild inflammation with minimally high WBC and ESR which cloud be related to his Diverticulitis. Patient reported he is currently at [facility] ED for left sided abdominal pain with a fever. RN advised patient that if he gets admitted to please call [facility]. RN scheduled an appointment with patient PCP just in case he is discharge from the hospital. Patient verbalized understanding. PT to F/U PRN. * Telephone Encounter - Marv Wu - 12/12/2024 1:43 PM EST Tc from pt spouse calling back to update call back number. Contact spouse at [phone] * Telephone Encounter - Mahendra Bartlett - 12/12/2024 12:35 PM EST Tc from pt requesting a call back regarding prior message Contact pt at [phone] (hungarian) * Telephone Encounter - Abhishek Lancaster RN - 12/12/2024 12:10 PM EST TC placed to patient [phone] using BLS #ID [id number] regarding below message. RN left an VM for the patient to Red team nurses. RN will re-attempt. ----- Message from Tamara Contreras MD sent at 12/11/2024 5:16 PM EST ----- Labs done today show mild inflammation with minimally high ESR and WBC, this could be related to diverticulitis which I agree to give treatment for. Please follow-up with patient tomorrow (12/12) and see if symptoms have improved with liquid diet and meds and if he has not developed any fever. If he seems to be on the mend, reinforced the POC and have him follow-up with us as needed worsening of symptoms. If it looks like symptoms are worst with current POC, have him return to clinic for further evaluation, may be antibiotics ----- Message ----- From: Interface, Lab Results In Sent: 12/11/2024 4:21 PM EST To: Tamara Contreras MD * Result Encounter Note - Tamara Contreras MD - 12/11/2024 5:16 PM EST Labs done today show mild inflammation with minimally high ESR and WBC, this could be related to diverticulitis which I agree to give treatment for. Please follow-up with patient tomorrow (12/12) and see if symptoms have improved with liquid diet and meds and if he has not developed any fever. If heseems to be on the mend, reinforced the POC and have him follow-up with us as needed worsening of symptoms. If it looks like symptoms are worst with current POC, have him return to clinic for furtherevaluation, may be antibiotics documented in this encounter Plan of Treatment Upcoming Encounters Date Type Department Care Team (Late st Contact Info) Description 12/13/2024 4:00 PM EST Office Visit [address] [address] Name, MD Marv [address] [place] [phone] 12/19/2024 9:30 AM EST Office Visit [address] [address] Name, MD Marv [address] [place] [address] documented as of this encounter Visit Diagnoses Not on filedocumented in this encounter Additional Health Concerns Assessment Noted Time PHQ-9 Depression Total Score: 0 09/22/19 24 3:03 PM EDT documented as of this encounter Care Teams Licensed Physical Therapist Assistant Relationship Specialty Start Date End Date NameMarv MD [address] [place] [phone] PCP - General Family Medicine 03/28/15 documented as of this encounter
--- OUTSIDE RECORDS SUMMARY | 2024-12-12 18:35 | XMS_ITS | Encounter Summary ---
Author Organization [employer] Address [address] [place] [address] 7 [place] [address] Care Team Providers Care Solar Installation Crew Supervisor Name Role Phone Name, Marv SALAZAR Primary Care Provider [phone] Encounter Details Date Type Department Care Team (Late st Contact Info) Description 12/12/2024 Orders Only [facility] External Provider, [facility] Social History Tobacco Use Types Packs/Day Years [...] Description 12/13/2024 4:00 PM EST Office Visit [address] [address] NameMarv MD [address] [place] [phone] 12/19/2024 9:30 AM EST Office Visit [address] [address] Name, MD Marv [address] [place] [phone] documented as of this encounter Procedures Procedure Name Priority Date/Time Associated Diagnosis Comments CT CERVICAL SPINE WO CONTRAST Routine 12/12/2024 6:[address] ABDOMEN PELVIS W CONTRAST Routine 12/12/2024 5:[address] HEAD WO CONTRAST Routine 12/12/2024 5 :44 PM EST HIGH SENSITIVITY TROPONIN I Routine 12/12/2024 4:44 PM EST CBC WITH AUTO DIFFERENTIAL Routine 12/12/2024 3:49 PM EST COMPREHENSIVE METABOLIC PANEL Routine 12/12/2024 3:49 PM EST XR KUB AND UPRIGHT 2 VIEWS Routine 12/12/2024 3:28 PM EST documented in this encounter Results * CT Cervical Spine w/o Contrast (12/12/2024 6:12 PM EST) Anatomical Region Laterality Modality Spine, C-spine Computed Tomogra phy 12/12/2024 6:12 PM EST Narrative 12/12/2024 6:13 PM EST [address] [address] [address] Scan Report Signed Patient: Jaziel Barrett MR#: [id number] : 1970 Acct:[id number] Age/Sex: 54 / M ADM Date: 12/12/24 Loc: HO.ED Attending Dr: Ordering Physician: Kirit Ball Date of Service: 12/12/24 Procedure(s): CT cervical spine wo IV con Accession Number(s): [id number] cc: Marv Workman MD; Kirit Ball Report Number: [id number]: Total DLP = 809.38 mGy-cm Reason for [...] in OV> 12/12/241812 DD/ 11 TD/TT: 12/12/241811 City Sanitarian: Procedure Note Donotuseinterpreter, Image - 12/12/[address] [address] [address] Scan Report Signed Patient: Jaziel Barrett GMR#: [id number] : 1970Acct:[id number] Age/Sex: 54 / MADM Date: 12/12/24 Loc: HO.ED Attending Dr: Ordering Physician: Kirit Ball Date of Service: 12/12/24 Procedure(s): CT cervical spine wo IV con Accession Number(s): [id number] cc: Jacinta,Marv SALAZAR; Kirit Ball Report Number: [id number]: Total DLP = 809.38 mGy-cm Reason for [...] Antonio MD on 12/12/2024 18:12:03 Dictated By: Carrei Antonio MD Signed By: <Electronically signed by Carrie Antonio MD in OV> 12/12/241812 DD/ 11 TD/TT: 12/12/241811 City Sanitarian: [facility] External Provider IMG CT PROCEDURES Final Result * CT Abdomen Pelvis w/ Contrast (12/12/2024 5:48 PM EST) Anatomical Region Laterality Modality Body, Pelvis, Abdomen Computed T omography 12/12/2024 5:48 PM EST Narrative 12/12/2024 5:50 PM EST [place] [address] CT Scan Report Signed Patient: Jaziel Barrett MR#: [id number] : 1970 Acct:[id number] Age/Sex: 54 / M ADM Date: 12/12/24 Loc: HO.ED Attending Dr: Ordering Physician: Kirit Ball Date of Service: 12/12/24 Procedure(s): CT abdomen pelvis w IV con Accession Number(s): [id number] cc: Marv Workman Daniel Report Number: [id number]: Total DLP = 1083.18 mGy-cm Reason for [...] in OV> 12/12/241748 DD/ 47 TD/TT: 12/12/241747 City Sanitarian: Procedure Note Donotuseinterpreter, Image - 12/12/[address] [place] [address] [address] Scan Report Signed Patient: Jaziel Barrett GMR#: [id number] : 1970Acct:[id number] Age/Sex: 54 / MADM Date: 12/12/24 Loc: HO.ED Attending Dr: Ordering Physician: Kirit Ball Date of Service: 12/12/24 Procedure(s): CT abdomen pelvis w IV con Accession Number(s): [id number] cc: Name,Marv SALAZAR; Kirit Ball Report Number: [id number]: Total DLP = 1083.18 mGy-cm Reason for [...] in OV> 12/12/241748 DD/ 47 TD/TT: 12/12/241747 City Sanitarian: us [facility] External Provider IMG CT PROCEDURES Final Result * CT Head w/o Contrast (12/12/2024 5:44 PM EST) Anatomical Region Laterality Modality Head, Neck Computed Tomogra phy 12/12/2024 5:44 PM EST Narrative 12/12/2024 5:45 PM EST [address] [address] [address] Scan Report Signed Patient: Jaziel Barrett MR#: [id number] : 1970 Acct:[id number] Age/Sex: 54 / M ADM Date: 12/12/24 Loc: HO.ED Attending Dr: Ordering Physician: Kirit Ball Date of Service: 12/12/24 Procedure(s): CT head/brain wo IV con Accession Number(s): [id number] cc: Marv Workman MD; Kirit Ball Report Number: [id number]: Total DLP = 856.42 mGy-cm Reason for [...] in OV> 12/12/241743 DD/ 43 TD/TT: 12/12/241743 City Sanitarian: Procedure Note Donotuseinterpreter, Image - 12/12/[address] [place] [address] [address] Scan Report Signed Patient: Jaziel Barrett GMR#: [id number] : 1970Acct:[id number] Age/Sex: 54 / MADM Date: 12/12/24 Loc: .ED Attending Dr: Ordering Physician: Kirit Ball Date of Service: 12/12/24 Procedure(s): CT head/brain wo IV con Accession Number(s): [id number] cc: Marv Workman MD; Kirit Ball Report Number: [id number]: Total DLP = 856.42 mGy-cm Reason for [...] in OV> 12/12/241743 DD/ 43 TD/TT: 12/12/241743 City Sanitarian: [facility] External Provider IMG CT PROCEDURES Final Result * High Sensitivity Troponin I (12/12/2024 4:44 PM EST) Pathologist [facility] TROPONIN I HIGH SENSITIVITY <2.7 <3.5 - 35.0 ng/L [facility] Comment:The Vee high sens itivity Troponin-I results should beused in conjunction with other diagnostic information suchas ECG, clinical observations and information, and patientsymptoms to aid in the diagnosis of CO. 12/12/2024 4:44 PM EST 12/12/2024 4:48 PM EST Generic External Data Provider LAB BLOOD ORDERAB LES Final Result [facility] [address] [place] [address] [phone] * (ABNORMAL) Comprehensive Metabolic Panel (12/12/2024 3:49 PM EST) [facility] Sodium 140 135 - 145 mmol/L [facility] Potassium 3.8 3.3 - 5.1 mmol/L [facility] Comment:Slight Hemolysis.Int erpret result with caution. Chloride 102 96 - 108 mmol/L [facility] Carbon Dioxide 30(H) 22 - 29 mmol/L [facility] Anion Gap 12 12 - 20 [facility] Urea Nitrogen (BUN) 13 9 - 16 mg/dL [facility] Creatinine, Serum 0.87 0.5 - 1.4 mg/dL [facility] Creatinine Clr Calc Pharmacy 123.6 [facility] Comment:eGFR (calculated fro m the MDRD study equation) and eCrCl(calculated from the Cockcroft-Gault equation) are based ondifferent parameters and may not yield comparable results.If eCrCl result is absurd, please check patient'sheight/weight. Estimated Glomerular Filt Rate >60 [facility] Comment:Chronic Kidney Disea se: Estimated GFR < 60 mL/min/1.19n6Nxefcf Kidney Disease: Estimated GFR < 15 mL/min/1.73m2 Glucose 105 60 - 115 mg/dL [facility] Calcium 8.8 8.4 - 10.2 mg/dL [facility] Bilirubin, Total 2.0(H) 0.0 - 1.0 mg/dL [facility] Aspartate Amino Transferase 18 5 - 37 U/L [facility] Comment:Slight Hemolysis.Int erpret result with caution. Alanine Aminotransferase 16 0 - 40 U/L [facility] Total Protein 7.7 6.5 - 8.0 g/dL [facility] Albumin Level 4.2 3.5 - 5.0 g/dL [facility] Alkaline Phosphatase 62 39 - 117 U/L [facility] 12/12/2024 3:49 PM EST 12/12/2024 3:52 PM EST us Generic External Data Provider LAB BLOOD ORDERAB LES Final Result [facility] [address] [place] [phone] * (ABNORMAL) CBC auto differential (12/12/2024 3:49 PM EST) White Blood Count 12.9(H) 4.8 - 10.8 X10*3/uL [facility] Red Blood Count 4.82 4.60 - 5.80 X10*6/uL [facility] Hemoglobin 14.4 14.0 - 18.0 g/dl [facility] Hematocrit 44.0 42.0 - 52.0 % [facility] Mean Corpuscular Volume 91.3 80.0 - 98.0 fL [facility] Mean Corpuscular Hemoglobin 29.9 27.0 - 33.0 pg [facility] Mean Corpuscular HGB Conc 32.7 31.0 - 36.0 g/dl [facility] Red Cell Distribution Width 13.2 11.0 - 16.0 % [facility] Platelet Count 258 160 - 400 X10*3/uL [facility] Mean Platelet Volume 9.0(L) 9.4 - 12.4 fL [facility] Neutrophils Percent Auto 74.0(H) 45 - 73 % [facility] Imm Gran Pct Auto 0.5(H) 0.0 - 0.4 % [facility] Lymphocytes Percent Auto 14.0(L) 20 - 40 % [facility] Monocytes Percent Auto 10.4 2 - 11 % [facility] Eosinophils Percent Auto 0.7 0 - 4 % [facility] Basophils Percent Auto 0.4 0 - 2 % [facility] NRBC Pct Auto 0.0 0.0 - 0.2 /100WBC [facility] Neutrophils Absolute Auto 9.6(H) 2.0 - 8.3 x10*3/uL [facility] Imm Gran Abs Auto 0.07(H) 0.00 - 0.03 X10*3/uL [facility] Lymphocytes Absolute Auto 1.8 1.2 - 4.9 X10*3/uL [facility] Monocytes Absolute Auto 1.4(H) 0.1 - 1.2 X10*3/uL [facility] Eosinophils Absolute Auto 0.1 0.0 - 0.4 X10*3/uL [facility] Basophils Absolute Auto 0.1 0.0 - 0.2 X10*3/uL [facility] NRBC Abs Auto 0.000 0.0 - 0.012 X10*3/uL [facility] 12/12/2024 3:49 PM EST 12/12/2024 3:52 PM EST us Generic External Data Provider LAB BLOOD ORDERAB LES Final Result [facility] [address] [place] [phone] * XR KUB and Upright 2 Views (12/12/2024 3:28 PM EST) Anatomical Region Laterality Modality Radiographic Iman ging 12/12/2024 3:28 PM EST Narrative 12/12/2024 3:41 PM EST [address] [address] XRay Report Signed Patient: Jaziel Barrett MR#: [id number] : 1970 Acct:[id number] Age/Sex: 54 / M ADM Date: 12/12/24 Loc: HO.ED Attending Dr: Ordering Physician: Petrona Florence NP Date of Service: 12/12/24 Procedure(s): XR KUB Accession Number(s): [id number] cc: Name,Marv SALAZAR; Petrona Florecne NP Reason for Exam: LLQ pain, constipation [...] Donald Shields MD 12/12/2024 03:38 PM EST Dictated By: Donald Shields MD Signed By: <Electronically signed by Donald Shields MD in OV> 12/12/24 1538 DD/ 1528 TD/TT: 12/12/24 1530 City Sanitarian: Procedure Note Donotuseinterpreter, Image - 12/12/[address] [address] XRay Report Signed Patient: Jaziel Barrett GMR#: [id number] : 1970Acct:[id number] Age/Sex: 54 / MADM Date: 12/12/24 Loc: HO.ED Attending Dr: Ordering Physician: Petrona Florence NP Date of Service: 12/12/24 Procedure(s): XR KUB Accession Number(s): [id number] cc: Marv Workman MD; Petrona Florence NP [...] by: Donald Shields MD 12/12/2024 03:38 PM [facility] Dictated By: Donald Shields MD Signed By: <Electronically signed by Donald Shields MD in OV> 12/12/24 1538 DD/ 1528 TD/TT: 12/12/24 1530 City Sanitarian: [facility] External Provider IMG XR PROCEDURES Final Result documented in this encounter Visit Diagnoses Not on filedocumented in this encounter Additional Health Concerns Assessment Noted Time PHQ-9 Depression Total Score: 0 09/22/19 24 3:03 PM EDT documented as of this encounter Care Teams Solar Installation Crew Supervisor Relationship Specialty Start Date End Date Name, MD Marv [address] [place] [address] PCP - General Family Medicine 03/28/15 documented as of this encounter
[2024-12-12 18:36] LABS: Appearance Urine Clear; Glucose Urine UA Negative (Negative); PH 8.5 (5.0-9.0); Specific Gravity - Urine >= 1.030 (1.005-1.025); UMIC TRIGGER UACC YES
--- OUTSIDE RECORDS SUMMARY | 2024-12-12 18:36 | XMS_ITS | Encounter Summary ---
Author Organization [employer] Address [address] [place] [address] [place] [address] Care Team Providers Care Choker Setter Name Role Phone Name, Marv SALAZAR Primary Care Provider Reason for Visit * Reason Comments Med Refill Encounter Details Date Type Department Care Team (Late st Contact Info) Description 04/30/2022 Refill [facility] MEDICINE [address] [place] [phone] NameMarv MD [address] [place] [address] [phone] Social History Tobacco Use Types Packs/Day Years Used Date Smoking Tobacco: Never Smokeless Tobacco: Never Alcohol Use Standard Drinks/Week Comments Never 0 (1 standard drink = 0.6 oz pur e alcohol) Sex and Gender Information Value Date Recorded Sex Assigned at Male 12/08/2021 10:23 AM EDT Legal Sex Male 10:23 AM EDT Gender Identity Male 12/08/2021 10:23 AM EDT Sexual Orientation Don't know 12/08/2021 10 :23 AM EDT documented as of this encounter Plan of Treatment Upcoming Encounters Date Type Department Care Team (Late st Contact Info) Description 12/13/2024 4:00 PM EST Office Visit [facility] MEDICINE [address] [place] [address] [phone] Marv Workman MD [address] [place] [address] [phone] 12/19/2024 9:30 AM EST Office Visit [facility] MEDICINE [address] [place] [address] [phone] Marv Workman MD [address] [place] [address] [place] [address] documented as of this encounter Visit Diagnoses Not on filedocumented in this encounter Care Teams Choker Setter Relationship Specialty Start Date End Date Name, [place] [address] PCP - General Family Medicine 03/28/15 documented as of this encounter
--- OUTSIDE RECORDS SUMMARY | 2024-12-12 18:36 | XMS_ITS | Encounter Summary ---
Author Organization [employer] Address [address] [place] [address] 7 [place] [address] Care Team Providers Care Bottomer Operator Name Role Phone Name, Marv SALAZAR Primary Care Provider Encounter Details Date Type Department Care Team (Late st Contact Info) Description 07/13/[address] [phone] NameMarv MD [address] [place] [phone] Social History Tobacco Use Types Packs/Day Years [...] Description 12/13/2024 4:00 PM EST Office Visit [address] [address] NameMarv MD [address] [place] [address] [phone] 12/19/2024 9:30 AM EST Office Visit [address] [address] NameMarv MD [address] [place] [phone] documented as of this encounter Procedures Procedure Name Priority Date/Time Associated Diagnosis Comments COLONOSCOPY Routine 01/23/2014 10:36 AM EST documented in this encounter Results * Hm Colonoscopy (01/23/2014 10:36 AM EST) Colonoscopy Normal Normal Narrative Allie Clarke - 01/23/2014 10:36 AM EST Recommended 10 year follow up Historical Provider HEALTH MAINTENANCE Final Result documented in this encounter Visit Diagnoses Not on filedocumented in this encounter Care Teams Bottomer Operator Relationship Specialty Start Date End Date Name, MD Marv [address] [place] [phone] PCP - General Family Medicine 03/28/15 documented as of this encounter
--- OUTSIDE RECORDS SUMMARY | 2024-12-12 18:36 | XMS_ITS | Encounter Summary ---
Author Organization [employer] Address [address] [place] [address] [place] [address] Care Team Providers Care Log Manager Name Role Phone Name, Marv SALAZAR Primary Care Provider [phone] Reason for Visit * Reason Comments Med Refill Encounter Details Date Type Department Care Team (Late st Contact Info) Description 04/28/2022 Refill [facility] MEDICINE [address] [place] [phone] NameMarv MD [address] [place] [address] [phone] Social History Tobacco Use Types Packs/Day Years [...] 12/13/2024 4:00 PM EST Office Visit [facility] MEDICINE [address] [place] [address] [phone] Marv Workman MD [address] [place] [address] [phone] 12/19/2024 9:30 AM EST Office Visit [facility] MEDICINE [address] [place] [address] [phone] Marv Workman MD [address] [place] [address] [place] [address] documented as of this encounter Visit Diagnoses Not on filedocumented in this encounter Care Teams Log Manager Relationship Specialty Start Date End Date Name, [place] [address] PCP - General Family Medicine 03/28/15 documented as of this encounter
--- NOTE | 2024-12-12 19:16 | P.HPHOSP_ITS ---
History of Present Illness Date of Service: 12/12/24 Chief Complaint: Abd pain 54-year-old male with no significant past medical history presented to the hospital today with a chief complaint of abdominal pain. Patient reported that for the past couple days he has been having abdominal pain located on the left lower quadrant; nonradiating, no SOB nausea vomiting or diarrhea. Reports feeling constipated. Went to the urgent care and gave him medications for constipation but he still did not have any bowel movement. Hence presented to the ER for further evaluation. Denies any chest pain or palpitations. Denies lightheadedness or dizziness. Denies any fever chills cough or sputum production. Review of all other systems is negative except mentioned above ER course: Per ER team, patient on presentation reported having abdominal pain; CT abdomen pelvis showed sigmoid diverticulitis with microperforation. ER team discussed with general surgery who suggested admission to the medicine service and IV antibiotics, no intervention for tonight. Patient in the ER went to the bathroom and while he was on the commode he properly passed out and patient was found on the floor. CT head and CT C-spine were done which showed acute findings. EKG showed no evidence of blocks. Blood pressure was stable. [facility] Social History Alcohol intake: current Alcohol intake frequency: holidays/special occasions only Patient Tobacco Use Status: Never used Tobacco Smoked in Last 30 Days: No Use of substances other than those prescribed or required for medical reasons: No Advance Directives: No Advance Directives Information Provided: No Do you have a plan to hurt others: No Plan Meds Allergies Allergy/AdvReac Type Severity Reaction Status Date / Time No Known Allergies (No Known Allergy Verified 12/12/24 14:45 Allergies*) Home Medications ?Medication ?Instructions ?Recorded ?Confirmed ?Last Taken ?Type dicyclomine 10 mg capsule 10 mg PO TID PRN Spasms 06/0212/12/24 12/11/24 History sennosides 8.6 mg tablet (senna) 8.6 mg PO DAILY PRN C onstipation 12/12/24 12/12/24 12/11/24 History Physical Exam 2 Vital Signs and Narrative: Vital Signs: Last Vital Signs Temp 98.1 F 12/12/24 16:30 Pulse 68 12/12/24 16:45 Resp 16 12/12/24 16:45 BP 112/64 12/12/24 16:45 Pulse Ox 94 12/12/24 16:45 O2 Del Method Room Air 12/12/24 16:45 BMI result Body Mass Index 36.6 Gen: Appears be in no acute distress HEENT: NCAT, Moist mucosa. Pulmonary: Vesicular breath sounds, fair air entry CVS: Normal S1-S2 Abdomen: BS+, Soft, mildly tender in the left lower quadrant; no guarding or rigidity Extremities: Warm well perfused Neuro: Alert and awake. Results Labs 12/12/24 15:49 12/12/24 15:49 Labs: Laboratory Results - last 24 hr 12/12/24 12/12/24 12/12/24 15:49 16:44 18:26 MCV 91.3 MCH 29.9 MCHC 32.7 RDW 13.2 Plt Count 258 MPV 9.0 L Immature Gran % (Auto) 0.5 H Neut % (Auto) 74.0 H Lymph % (Auto) 14.0 L [place] % (Auto) 10.4 Eos % (Auto) 0.7 Baso % (Auto) 0.4 Lymph # (Auto) 1.8 [place] # (Auto) 1.4 H Eos # (Auto) 0.1 Baso # (Auto) 0.1 Abs Immat Gran (auto) 0.07 H Absolute Neuts (auto) 9.6 H Absolute Nucleated RBC 0.000 Nucleated RBC % (auto) 0.0 Anion Gap 12 Estim Creat Clear Calc 123.6 Estimated GFR > 60 Random Glucose 105 Lactic Acid Calcium 8.8 Total Bilirubin 2.0 H AST 18 ALT 16 Alkaline Phosphatase 62 Troponin I High Sens < 2.7 Total Protein 7.7 Albumin 4.2 Urine Color Yellow Urine Appearance Clear Urine pH 8.5 Ur Specific [place] >= 1.030 H Urine Protein Negative Urine Glucose (UA) Negative Urine Ketones Negative Urine Blood Trace H Urine Nitrite Negative Ur Leukocyte Esterase Negative Urine RBC 3-5 H Urine WBC 0-5 Ur Squamous Epith Cells 0-2 Urine Bacteria None Seen Hyaline Casts 0-2 12/12/24 18:52 MCV MCH MCHC RDW Plt Count MPV Immature Gran % (Auto) Neut % (Auto) Lymph % (Auto) [place] % (Auto) Eos % (Auto) Baso % (Auto) Lymph # (Auto) [place] # (Auto) Eos # (Auto) Baso # (Auto) Abs Immat Gran (auto) Absolute Neuts (auto) Absolute Nucleated RBC Nucleated RBC % (auto) Anion Gap Estim Creat Clear Calc Estimated GFR Random Glucose Lactic Acid 1.2 Calcium Total Bilirubin AST ALT Alkaline Phosphatase Troponin I High Sens Total Protein Albumin Urine Color Urine Appearance Urine pH Ur Specific [place] Urine Protein Urine Glucose (UA) Urine Ketones Urine Blood Urine Nitrite Ur Leukocyte Esterase Urine RBC Urine WBC Ur Squamous Epith Cells Urine Bacteria Hyaline Casts Imaging Radiologist's Impressions: Impressions KUB X-Ray 12/12/24 15:28 IMPRESSION: 1. Mild to moderate constipation. No bowel obstruction. 2. Gallstones suspected. Electronically signed by: Donald Shields MD 12/12/2024 03:38 PM [facility] [employer] Workstation: [id number] Assessment and Plan (1) Diverticulitis: Status: Acute (2) Syncope: Qualifiers: Syncope type: vasovagal syncope Qualified Code(s): R55 - Syncope and collapse Status: Acute Plan 54-year-old male with no significant past medical history presented to the hospital today with a chief complaint of abdominal pain. Admitted for following Sigmoid diverticulitis/micro perforation: General surgery was notified Pain control Continue Zosyn NPO Dental IV fluids Syncope: Patient had a syncopal episode while in the bathroom in the ER. Likely vasovagal. Patient was found on the floor in the ER bathroom. CT head and CT C-spine showed no acute findings. EKG showed no evidence of blocks Telemetry Orthostatic vitals Echocardiogram Holter at the time of discharge DVT prophylaxis: Subcu heparin Code status: Full code Quality Stroke Does the patient have a stroke diagnosis?: No VTE Prior VTE?: No VTE Risk Level:: Medical - moderate - high VTE Device Contraindication: Treatment Not Indicated VTE Drug Contraindication: N/A - Med Ordered
--- NOTE | 2024-12-12 19:58 | PHA.MEDREC ---
Addendum entered by Delonte Malloy, PharmD 12/12/24 20:05: MED REC CHECKED BY [facility]. UTILIZED TEAM FOREMAN Original Note: Pharmacy Consult ? Medication Reconciliation Pharmacy has completed the medication reconciliation. Spoke to patient and patient at bedside to confirm med list. had a picture of patient Rx bottles. Patient states he is only taking Dicyclomin 10 mg and senna 8.6 mg. Patient is not taking Ibuprofen 600 mg, Atorvastatin 20 mg, BP was 10% Topical cleanser, Lidocaine 5% patch Clotrimazole 1 % cream and Diclofenac 1% gel, even though all where fill 11/30/24 for 30 days.
[2024-12-12] MEDS: Dextrose 5 % and 0.45 % NaCl 1,000 ML 100 ML IVCONT (20:43)
[2024-12-12 21:23] LABS: Glucose, Whole Blood 100 mg/dL (60-115)
[2024-12-13] VITALS (9 sets, daily range): BP systolic 110–123; BP diastolic 54–63; PULSE 76–100; RESP 16–22; TEMP 37.3–38.2; O2SAT 93–100; BMI 36.9
--- NOTE | 2024-12-13 03:11 | HO.NURTONUR ---
Addendum entered by Constanza Singer RN 12/13/24 05:15: noted Pt has IVF of D5% and 0.45% NACl running at 100ml/hr not LR (entered in error). Original Note: Pt from home with complaint of lower left abdominal pain and constipation since wednesday. Pt reports last bm wednesday, pt went to [facility] 12/11/24 given laxative but pt reports no relief. While in the waiting room pt went to the bathroom attempted to have a bm and noted to have a syncopable episode. Pt was placed in c-collar ,EKG (unchanged) and repeat labs obtained. NO headstrike, LOC, or any injuries reported or noted. Head CT and Cervical spine CT negative for any traumatic injuries. Abdomen pelvis CT showed diverticulitis in sigmoid with microperforation. Pt admitted for general surgery consult in the am, iv abx, and further observation. Pt is a&ox3, primarily croatian speaking, able to make his needs known and ambulates with steady gait. Pt is NPO at this time. Pt has 20G IV in RFA and has been medicated per apr. Pt receiving LR IVF @100ml/hr, hydromorphone 0.5mg effective for pain control. EKG- NSR Labs: WBC- 12.9 Bilirubin- 2.0
--- NOTE | 2024-12-13 06:02 | PM.CNGS ---
History of Present Illness Consult details Consult date: 12/13/24 <[address] PA-C - Last Filed: 12/13/24 08:44> Reason for consult: other (diverticulitis with microperforation) <Farzaneh Way PA-C - Last Filed: 12/13/24 08:44> Requesting physician: Otis Barraza <Farzaneh Way PA-C - Last Filed: 12/13/24 08:44> Narrative: 54 year old male who presented to the ED with complaints of abdominal pain. He developed lower abdominal pain on Wednesday night, mostly on the left side. He sought evaluation at an urgent care on Wednesday and they gave him laxatives which he took without symptomatic improvement. They instructed him to seek evaluation if he developed fevers at home and he reports he had subjective fevers and chills yesterday with continued abdominal pain and therefore came to the ED. He apparently had a syncopal episode in the waiting room when getting up and ambulating to the bathroom. Work up in the ED included CBC, BMP, LFTs which was significant for a leukocytosis of 12.9 and bilirubin of 2. Lactic acid normal. CT scan abd pelvis showed sigmoid diverticulitis with microperforation, small locules of air extraluminal. He was admitted to the hospitalist service and started on IV zosyn. He reports feeling improved today with less abdominal pain. He had a low grade fever this morning. He denies previous episodes of similar pain. He denies nausea, vomiting, dysuria, diarrhea. He reports a colonoscopy 10 years ago in [place]. He reports FH of CRC in uncle, unsure of what age he was diagnosed. He has a history of laparoscopic b/l inguinal hernia repair. <Farzaneh Way PA-C - Last Filed: 12/13/24 08:44> Review of Systems Review of Systems: Yes all other systems are reviewed and are negative <DOLLY Tinoco Last Filed: 12/13/24 08:44> [facility] Social History Social History: Social History Household Members: Spouse Housing: House Do you presently have visiting nurse or other home services: No Alcohol intake: current Alcohol intake frequency: holidays/special occasions only Patient Tobacco Use Status: Never used Tobacco Smoked in Last 30 Days: No Use of substances other than those prescribed or required for medical reasons: No Currently Displaying Signs/Symptoms of Drug Intoxication Withdrawal: No Have you been hit, kicked, punched, or otherwise hurt by someone within the past year? If so, by whom?: No Do you feel safe in your current relationship?: Yes Is there a partner from a previous relationship who is making you feel unsafe now?: No Are you made to feel afraid or neglected: No Advance Directives: No Advance Directives Information Provided: No Do you have a plan to hurt others: No Plan Recently lost weight without trying: No How much weight loss: Not applicable Eating poorly because of decreased appetite: No Nutrition screen score: 0 Nutrition Risks: No Nutritional Risk Poor oral hygiene: No <Farzaneh Way PA-C - Last Filed: 12/13/24 08:44> Meds Allergies/Adverse reactions: Allergies Allergy/AdvReac Type Severity Reaction Status Date / Time No Known Allergies (No Known Allergy Verified 12/12/24 14:45 Allergies*) <Farzaneh Way PA-C - Last Filed: 12/13/24 08:44> Active Medications: Current Medications Acetaminophen (Acetaminophen 325 Mg Tablet) 650 mg PO Q6H PRN PRN Reason: Pain, Mild 1-3,fever,headache Last Admin: 12/13/24 05:52 Dose: 650 mg Calcium Carbonate (Calcium Carbonate 750 Mg Tab.Chew) 750 mg PO Q4H PRN PRN Reason: Heartburn Heparin Sodium (Porcine) (Heparin Sodium,Porcine 5,000 Unit/Ml Vial) 5,000 unit SUBCUT Q8H [facility] Last Admin: 12/13/24 04:37 Dose: 5,000 unit Hydromorphone HCl (Hydromorphone Hcl 1 Mg/Ml Syringe) 0.5 mg IVPUSH Q4H PRN; Protocol PRN Reason: Breakthrough Pain Last Admin: 12/13/24 01:12 Dose: 0.5 mg Dextrose/Sodium Chloride (D51/2ns) 1,000 mls @ 100 mls/hr IVCONT .Q10H [facility] Last Admin: 12/12/24 20:43 Dose: 100 mls/hr Piperacillin Sod/Tazobactam (Sod 3.375 gm/ Sodium Chloride) 50 mls @ 100 mls/hr IV Q6H [facility] Last Admin: 12/13/24 05:52 Dose: 100 mls/hr Magnesium Hydroxide (Milk Of Magnesia 30 Ml Oral.Susp) 30 ml PO DAILY PRN PRN Reason: Constipation Melatonin (Melatonin 3 Mg Tablet) 6 mg PO BEDTIME PRN PRN Reason: Insomnia Sodium Chloride (0.9 % Sodium Chloride Flush 3 Ml Syringe) 3 ml IVFLUSH QSHIFT [facility] Last Admin: 12/13/24 00:30 Dose: Not Given <DOLLY Tinoco Last Filed: 12/13/24 08:44> Home medications: Home Medications ?Medication ?Instructions ?Recorded ?Confirmed ?Last Taken ?Type dicyclomine 10 mg capsule 10 mg PO TID PRN Spasms 12/12/24 12/12/24 12/11/24 History sennosides 8.6 mg tablet (senna) 8.6 mg PO DAILY PRN Constipation 12/12/24 12/12/24 12/11/24 History <DOLLY Tinoco Last Filed: 12/13/24 08:44> Physical Exam Vital Signs: Vital Signs: Last Vital Signs Temp 100.7 F H 12/13/24 05:42 Pulse 87 12/13/24 05:42 Resp 18 12/13/24 05:42 BP 123/60 12/13/24 05:42 Pulse Ox 100 12/13/24 05:42 O2 Del Method Room Air 12/13/24 05:42 O2 Flow Rate 1 12/13/24 04:38 BMI result Body Mass Index 36.9 <DOLLY Tinoco Last Filed: 12/13/24 08:44> Const: General: comfortable, no acute distress and alert; No ill appearing <DOLLY Tinoco Last Filed: 12/13/24 08:44> Resp: Effort & Inspection: normal respiratory effort <DOLLY Tinoco Last Filed: 12/13/24 08:44> GI: Other: protuberant abdomen LLQ and suprapubic region moderately tender to palpation soft <DOLLY Tinoco Last Filed: 12/13/24 08:44> Inspection: Yes scar (umbilical, two small midline port sites infraumbilical) <DOLLY Tinoco Last Filed: 12/13/24 08:44> Palpation (GI): no guarding and not rigid <DOLLY Tinoco Last Filed: 12/13/24 08:44> Skin: General skin exam: no rashes or lesions noted <DOLLY Tinoco Last Filed: 12/13/24 08:44> Results Labs Result diagrams: 12/13/24 08:02 12/12/24 15:49 <DOLLY Tinoco Last Filed: 12/13/24 08:44> Labs: Abnormal lab results 12/12/24 12/12/24 Range/Units 15:49 18:26 WBC 12.9 H (4.8-10.8) X10*3/uL MPV 9.0 L (9.4-12.4) fL Immature Gran % (Auto) 0.5 H (0.0-0.4) % Neut % (Auto) 74.0 H (45-73) % Lymph % (Auto) 14.0 L (20-40) % [place] # (Auto) 1.4 H (0.1-1.2) X10*3/uL Abs Immat Gran (auto) 0.07 H (0.00-0.03) X10*3/uL Absolute Neuts (auto) 9.6 H (2.0-8.3) x10*3/uL Carbon Dioxide 30 H (22-29) mmol/L Total Bilirubin 2.0 H (0.0-1.0) mg/dL Ur Specific [place] >= 1.030 H (1.005-1.025) Urine Blood Trace H (Negative) Urine RBC 3-5 H (0-2) /HPF Short CBC 12/12/24 Range/Units 15:49 WBC 12.9 H (4.8-10.8) X10*3/uL Hgb 14.4 (14.0-18.0) g/dl Hct 44.0 (42.0-52.0) % Plt Count 258 (160-400) X10*3/uL BMP 12/12/24 15:49 Sodium 140 Potassium 3.8 Chloride 102 Carbon Dioxide 30 H BUN 13 Creatinine 0.87 Calcium 8.8 Liver Function 12/12/24 Range/Units 15:49 Total Bilirubin 2.0 H (0.0-1.0) mg/dL AST 18 (5-37) U/L ALT 16 (0-40) U/L Alkaline Phosphatase 62 (39-117) U/L Albumin 4.2 (3.5-5.0) g/dL Urine 12/12/24 Range/Units 18:26 Urine Color Yellow Urine Appearance Clear Urine pH 8.5 (5.0-9.0) Ur Specific [place] >= 1.030 H (1.005-1.025) Urine Protein Negative (Neg-Trace) mg/dL Urine Glucose (UA) Negative (Negative) mg/dL All other labs normal. <Farzaneh Way PA-C - Last Filed: 12/13/24 08:44> Imaging Abdomen CT scan report/results: report reviewed and image reviewed <Farzaneh Way PA-C - Last Filed: 12/13/24 08:44> Additional studies: labs reviewed <Farzaneh Way PA-C - Last Filed: 12/13/24 08:44> Assessment and Plan (1) Diverticulitis: Status: Acute <Farzaneh Way PA-C - Last Filed: 12/13/24 08:44> 54-year-old male, morbidly obese, with to left lower quadrant pain for about 2-3 days Abdomen soft although with some tenderness in the left lower quadrant He does state that he is definitely feels better this morning Less pain compared to yesterday Cat scan reviewed - consistent with sigmoid diverticulitis with locules of extraluminal air suggestive of microperforation Continue IV antibiotics NPO Abdomen is soft and benign otherwise I explained to him and his that if clinical picture worsens or if non improvement in reasonable period of time, he may need laparotomy and bowel resection We will continue to follow closely hemodynamically stable and non toxic looking <Everton Patterson MD - Last Filed: 12/13/24 08:20> 54 year old male with no known PMH presenting with LLQ pain since Wednesday found to have diverticulitis with microperforation. Small extraluminal locules of air noted on CT. He feels improved this morning. He is nontoxic appearing. He is moderately tender on exam without peritoneal signs. WBC is unfortunately increased this morning. Will attempt supportive measures with IV abx and IVF and bowel rest for now. Discussed if he has no significant continued improvement or clinically worsens, he may require urgent surgical intervention during this stay with sigmoid resection, likely ostomy. He understands and agrees with the plan. Will continue to follow. Repeat CBC in am. <Farzaneh Way PA-C - Last Filed: 12/13/24 08:44> Procedures Date of Service Date of Service: 12/13/24 <[address] PA-C - Last Filed: 12/13/24 08:44> 12/13/24 <Everton Patterson MD - Last Filed: 12/13/24 08:20>
[2024-12-13] MEDS: Dextrose 5 % and 0.45 % NaCl 1,000 ML 100 ML IVCONT ×2 (06:25→15:19)
--- NOTE | 2024-12-13 07:00 | CA_ITS ---
Transthoracic Echocardiogram Amended Patient (Last, First, Middle): Jaziel Barrett G Gender: M Date of : 1970 Age: 54 Procedure Date: 12/13/2024 Procedure Type: Transthoracic Echocardiogram Location: S3E Height: 177.8 cm Weight: 116.58 kg BSA: 2.32 m2 Heart Rate: bpm BP: 110 / 60 mmHg Executor Of Estate: Referring MD: Otis Barraza MD Symptoms: Syncope Study Quality: Good ECG Rhythm: Sinus Conclusions: - Normal left ventricular size and systolic function. There is mildly increased left ventricular wall thickness. The visually estimated ejection fraction is between 65-70%. There is no evidence of regional wall motion abnormalities. Diastolic function is normal for age. - Normal right ventricular cavity size and systolic function. - There is mild dilatation of the ascending aorta measuring 3.70 cm. - The inferior vena cava is dilated and collapses less than 50% with inspiration. Findings Left Ventricle Normal left ventricular size and systolic function. There is mildly increased left ventricular wall thickness. The visually estimated ejection fraction is between 65-70%. There is no evidence of regional wall motion abnormalities. Diastolic function is normal for age. Right Ventricle Normal right ventricular cavity size and systolic function. Atria The left atrium is normal in size. The right atrium is normal in size. Aortic Valve Normal aortic valve structure and function. There is no aortic valve stenosis. There is no aortic valve regurgitation. Mitral Valve The mitral valve appears normal. There is no mitral valve regurgitation. There is no mitral valve stenosis. Pulmonic Valve Normal pulmonic valve structure and function. There is no pulmonic valve regurgitation. Tricuspid Valve Significantly elevated right atrial pressure. There is no evidence of pulmonary hypertension. Great Vessels There is mild dilatation of the ascending aorta measuring 3.70 cm. Venous The inferior vena cava is dilated and collapses less than 50% with inspiration. Pericardium/Pleural There is no evidence of pericardial effusion. Prior Study Comparison Changes noted compared to prior study dated: 02/02/2018. RA pressure elevated. Measurements 2D Linear Measurements IVSd: 1.21 0.6-0.9/0.6-1.0 cm LVIDd: 4.70 3.9-5.3/4.2-5.9 cm LVIDd Index: 2.03 2.4-3.2/2.2-3.1 cm/m2 LVIDs: 2.85 2.0-3.6 cm LVPWd: 1.25 0.7-1.1 cm Ao Root: 3.40 2.1-3.5 cm LA Diam: 4.20 2.7-3.8/3.0-4.0 cm LAIDs Index: 1.81 1.5-2.3 cm/m2 LV Mass: 273.77 67-162/88-224 g LV Mass Index: 118.00 43-95/49-115 g/m2 LVOT Diam: 2.10 3.0+(-)1.3 cm 2D Volumes LA Vol: 22.40 2D Systolic Function EF 4C: 76.00 >55% EF 2C: 58.00 >55% EF BiP: 68.40 >55% Mitral Valve MV Pk E: 0.79 MV PK A: 0.75 MV Decel Time: 178.00 E/A: 1.10 E'Medial: 7.62 E/E' Med: 10.40 PHT: 52.00 MVA PHT: 4.23 Decel [place]: 4.46 Aortic Valve AoV Pk Elpidio: 1.53 AoV Mn Elpidio: 1.05 AoV VTI: 0.29 AoV Pk Grad: 9.00 Aov Mn Grad: 5.00 SHERRI Cont.VTI: 3.17 LVOT LVOT Pk Elpidio: 1.33 LVOT Mn Elpidio: 0.85 LVOT VTI: 0.26 LVOT Pk Grad: 7.00 LVOT Mn Grad: 4.00 LVOT Diam: 2.10 LVOT Area: 3.46 Diastolic Function MV Pk E: 0.79 MV Pk A: 0.75 E/A: 1.10 E'Medial: 7.62 E/E' Med: 10.40 Right Ventricle TAPSE (mm): 33.00 TVS' Elpidio: 15.00 Tricuspid Valve TR Pk Elpidio: 1.59 TR Pk Grad: 10.00 RA Press: 3.00 RVSP: 25.00 Great Vessels Aorta Ao Root-2D: 3.40 2.0-3.7 cm Ao Asc: 3.70 2.1-3.4 cm Pulmonary Veins Pulm Vein S/D 1.10 Pulmonary Valve PV Pk Elpidio: 1.13 Peak PV Grad: 5.00 Updated in Other Vendor System with Status of Final Fernie Pérez MD electronically signed on 12/16/2024 3:06:58 PM with status of Final
[2024-12-13 08:20] LABS: MANUAL DIFF FLAG NO
[2024-12-13 08:28] LABS: Hematocrit 38.6 % (42.0-52.0); Hemoglobin 12.7 g/dl (14.0-18.0); Imm Gran Abs Auto 0.09 X10*3/uL (0.00-0.03); Imm Gran Pct Auto 0.6 % (0.0-0.4); Lymphocytes Absolute Auto 1.3 X10*3/uL (1.2-4.9); Mean Corpuscular HGB Conc 32.9 g/dl (31.0-36.0); Mean Corpuscular Hemoglobin 30.0 pg (27.0-33.0); Mean Corpuscular Volume 91.3 fL (80.0-98.0); NRBC Abs Auto 0.000 X10*3/uL (0.0-0.012); NRBC Pct Auto 0.0 /100WBC (0.0-0.2); Platelet Count 240 X10*3/uL (160-400); Red Blood Count 4.23 X10*6/uL (4.60-5.80); White Blood Count 16.4 X10*3/uL (4.8-10.8)
--- NOTE | 2024-12-13 09:43 | P.PNIM_ITS ---
Subjective Subjective Date of Service: 12/13/24 Interval History: Follow up on acute diverticulitis with micro perforation, pain is better, non- toxic appearing, Physical Exam 2 Vital Signs: Vital Signs: Last Vital Signs Temp 99.5 F 12/13/24 07:10 Pulse 84 12/13/24 08:33 Resp 18 12/13/24 07:10 BP 114/58 L 12/13/24 08:33 Pulse Ox 96 12/13/24 07:10 O2 Del Method Room Air 12/13/24 07:10 O2 Flow Rate 1 12/13/24 04:38 BMI result Body Mass Index 36.9 Const: Other: General: AO X 3, no acute distress Resp: CTA bilateral CVS: S1,S2,RRR GI: +BS, mod tenderness in LLQ, no distention, n guarding Skin: No rash Neuro: motor grossly intact Psych: appropriate affect Objective Data Active Medications Acetaminophen (Acetaminophen 325 Mg Tablet) 650 mg PO Q6H PRN PRN Reason: Pain, Mild 1-3,fever,headache Last Admin: 12/13/24 05:52 Dose: 650 mg Documented By: YUE Calcium Carbonate (Calcium Carbonate 750 Mg Tab.Chew) 750 mg PO Q4H PRN PRN Reason: Heartburn Heparin Sodium (Porcine) (Heparin Sodium,Porcine 5,000 Unit/Ml Vial) 5,000 unit SUBCUT Q8H [facility] Last Admin: 12/13/24 04:37 Dose: 5,000 unit Documented By: KIMBERLEY Hydromorphone HCl (Hydromorphone Hcl 1 Mg/Ml Syringe) 0.5 mg IVPUSH Q4H PRN; Protocol PRN Reason: Breakthrough Pain Last Admin: 12/13/24 01:12 Dose: 0.5 mg Documented By: KIMBERLEY Dextrose/Sodium Chloride (D51/2ns) 1,000 mls @ 100 mls/hr IVCONT .Q10H [facility] Last Admin: 12/13/24 06:25 Dose: 100 mls/hr Documented By: YUE Piperacillin Sod/Tazobactam (Sod 3.375 gm/ Sodium Chloride) 50 mls @ 100 mls/hr IV Q6H [facility] Last Infusion: 12/13/24 06:26 Dose: Infused Documented By: YUE Magnesium Hydroxide (Milk Of Magnesia 30 Ml Oral.Susp) 30 ml PO DAILY PRN PRN Reason: Constipation Melatonin (Melatonin 3 Mg Tablet) 6 mg PO BEDTIME PRN PRN Reason: Insomnia Sodium Chloride (0.9 % Sodium Chloride Flush 3 Ml Syringe) 3 ml IVFLUSH QSHIFT [facility] Last Admin: 12/13/24 07:10 Dose: Not Given Documented By: FLORENCIO Non-Admin Reason: IV Running Labs 12/13/24 08:02 12/12/24 15:49 Labs: Laboratory Results - last 24 hr 12/12/24 12/12/24 12/12/24 15:49 16:44 18:26 MCV 91.3 MCH 29.9 MCHC 32.7 RDW 13.2 Plt Count 258 MPV 9.0 L Immature Gran % (Auto) 0.5 H Neut % (Auto) 74.0 H Lymph % (Auto) 14.0 L [place] % (Auto) 10.4 Eos % (Auto) 0.7 Baso % (Auto) 0.4 Lymph # (Auto) 1.8 [place] # (Auto) 1.4 H Eos # (Auto) 0.1 Baso # (Auto) 0.1 Abs Immat Gran (auto) 0.07 H Absolute Neuts (auto) 9.6 H Absolute Nucleated RBC 0.000 Nucleated RBC % (auto) 0.0 Anion Gap 12 Estim Creat Clear Calc 123.6 Estimated GFR > 60 POC Glucose Random Glucose 105 Lactic Acid Calcium 8.8 Total Bilirubin 2.0 H AST 18 ALT 16 Alkaline Phosphatase 62 Troponin I High Sens < 2.7 Total Protein 7.7 Albumin 4.2 Urine Color Yellow Urine Appearance Clear Urine pH 8.5 Ur Specific [place] >= 1.030 H Urine Protein Negative Urine Glucose (UA) Negative Urine Ketones Negative Urine Blood Trace H Urine Nitrite Negative Ur Leukocyte Esterase Negative Urine RBC 3-5 H Urine WBC 0-5 Ur Squamous Epith Cells 0-2 Urine Bacteria None Seen Hyaline Casts 0-2 12/12/24 12/12/24 12/13/24 18:52 21:14 08:02 MCV 91.3 MCH 30.0 MCHC 32.9 RDW 13.4 Plt Count 240 MPV 9.3 L Immature Gran % (Auto) 0.6 H Neut % (Auto) 83.8 H Lymph % (Auto) 7.9 L [place] % (Auto) 7.4 Eos % (Auto) 0.1 Baso % (Auto) 0.2 Lymph # (Auto) 1.3 [place] # (Auto) 1.2 Eos # (Auto) 0.0 Baso # (Auto) 0.0 Abs Immat Gran (auto) 0.09 H Absolute Neuts (auto) 13.7 H Absolute Nucleated RBC 0.000 Nucleated RBC % (auto) 0.0 Anion Gap Estim Creat Clear Calc Estimated GFR POC Glucose 100 Random Glucose Lactic Acid 1.2 Calcium Total Bilirubin AST ALT Alkaline Phosphatase Troponin I High Sens Total Protein Albumin Urine Color Urine Appearance Urine pH Ur Specific [place] Urine Protein Urine Glucose (UA) Urine Ketones Urine Blood Urine Nitrite Ur Leukocyte Esterase Urine RBC Urine WBC Ur Squamous Epith Cells Urine Bacteria Hyaline Casts Assessment and Plan (1) Diverticulitis: Status: Acute (2) Syncope: Status: Acute Plan 54-year-old male with no significant past medical history presented to the hospital today with a chief complaint of abdominal pain. Admitted for following Acute Sigmoid diverticulitis with micro perforation, pain is better but still at risk of detelioration and worsening perforation and abscess General surgery following and reommends bowel rest and if not improving or worse will need surgery Continue IVF, IVF pain medication and monitor clinically with serial exam Continue NPO until clear sings of significant improvment Continue Zosyn started 12/12/24 Syncope: Patient had a syncopal episode while in the bathroom in the ER. Likely vasovagal. Patient was found on the floor in the ER bathroom. CT head and CT C-spine showed no acute findings. EKG showed no evidence of blocks Telemetry x 24 and reasssess Orthostatic vitals - Echocardiogram further testing will dependent on clinical course DVT prophylaxis: Subcu heparin Code status: Full code Need for inpt: acute diverticulitis with micro perf, high risk of perforation and detelioriation, needs serial exam and close monitoring Quality Stroke Does the patient have a stroke diagnosis?: No VTE Prior VTE?: No VTE Risk Level:: Medical - moderate - high VTE Device Contraindication: Treatment Not Indicated VTE Drug Contraindication: N/A - Med Ordered
--- NOTE | 2024-12-13 12:00 | MHC.CM.PN ---
PT LIVES WITH HAS A RIDE NOT EXPECTED TO NEED SERVICES WHEN DCD
--- OUTSIDE RECORDS SUMMARY | 2024-12-13 14:38 | XMS_ITS | Encounter Summary ---
Author Organization [employer] Address [address] [place] [address] [address] [place] [address] Care Team Providers Care Clinical Trial Leader Name Role Phone Name, Marv SALAZAR Primary Care Provider [phone] Encounter Details Date Type Department Care Team [...] Description 12/19/2024 9:30 AM EST Office Visit [facility] [address] [place] [address] NameMarv MD [address] [place] [address] documented as of this encounter Visit Diagnoses Not on filedocumented in this encounter Additional Health Concerns Assessment Noted Time PHQ-9 Depression Total Score: 0 09/22/19 24 3:03 PM EDT documented as of this encounter Care Teams Clinical Trial Leader Relationship Specialty Start Date End Date Marv Workman MD [address] [place] [id number] PCP - General Family Medicine 03/28/15 documented as of this encounter
--- OUTSIDE RECORDS SUMMARY | 2024-12-13 14:38 | XMS_ITS | Encounter Summary ---
Author Organization [employer] Address [address] [place] [address] 7 [place] [address] Care Team Providers Care Automation Engineer Name Role Phone Name, Marv SALAZAR Primary Care Provider [phone] Reason for Visit * Reason Comments Med Refill Encounter Details Date Type Department Care Team ([facility] st Contact Info) Description 11/22/2024 Refill [facility] [address] [place], [place] [phone] Name, MD Marv [address] [place] [address] Chronic left shoulder pain Social History Tobacco [...] Description 12/19/2024 9:30 AM EST Office Visit [facility] MEDICINE [address] [place] [phone] Name, MD Marv [address] [place] [address] documented as of this encounter Visit Diagnoses Diagnosis Chronic left shoulder pain Pain in joint, shoulder region documented in this encounter Additional Health Concerns Assessment Noted Time PHQ-9 Depression Total Score: 0 09/22/19 24 3:03 PM EDT documented as of this encounter Care Teams Automation Engineer Relationship Specialty Start Date End Date Name, MD Marv [address] [place] [phone] PCP - General Family Medicine 03/28/15 documented as of this encounter
--- OUTSIDE RECORDS SUMMARY | 2024-12-13 14:38 | XMS_ITS | Encounter Summary ---
Author Organization [employer] Address [address] [place] [address] 7 [place] [address] Care Team Providers Care Compensation Vice President Name Role Phone Name, Marv SALAZAR Primary Care Provider [phone] Reason for Visit * Reason Comments Pre-visit Planning SDOH unable to reach LVM Encounter Details Date Type Department Care Team ([facility] st Contact Info) Description 12/12/2024 Patient Outreach [facility] [address] [place], [place] [phone] Name, MD Marv [address] [place] [address] Pre-visit Planning (SDOH unable to reach LVM) [...] Description 12/19/2024 9:30 AM EST Office Visit [facility] MEDICINE [address] [place] [phone] Name, MD Marv [address] [place] [address] documented as of this encounter Visit Diagnoses Not on filedocumented in this encounter Additional Health Concerns Assessment Noted Time PHQ-9 Depression Total Score: 0 09/22/19 24 3:03 PM EDT documented as of this encounter Care Teams Compensation Vice President Relationship Specialty Start Date End Date Marv Workman MD [address] [place] [phone] PCP - General Family Medicine 03/28/15 documented as of this encounter
--- OUTSIDE RECORDS SUMMARY | 2024-12-13 14:38 | XMS_ITS | Encounter Summary ---
Author Organization [employer] Address [address] [place] [address] 7 [place] [address] Care Team Providers Care Crude Unit Operator Name Role Phone Name, Marv SALAZAR Primary Care Provider [phone] Encounter Details Date Type Department Care Team (Late st Contact Info) Description 12/12/2024 Orders Only [facility] External Provider, [facility] Social History Tobacco Use Types Packs/Day [...] Description 12/19/2024 9:30 AM EST Office Visit [facility] MEDICINE [address] [place] [address] Name, MD Marv [address] [place] [address] documented as of this encounter Procedures Procedure Name Priority Date/Time Associated Diagnosis Comments XR CHEST 2 VIEWS Routine 12/12/2024 7:32 PM EST URINALYSIS, COMPLETE, WITH REFLEX TO CULTURE Routine 12/12/2024 6:26 PM EST URINALYSIS WITH REFLEX MICROSCOPIC Routine 12/12/2024 6:[address] CERVICAL SPINE WO CONTRAST Routine 12/12/2024 [...] EST documented in this encounter Results * XR Chest 2 Views (12/12/2024 7:32 PM EST) Anatomical Region Laterality Modality Chest Radiographic Iman ging 12/12/2024 7:32 PM EST Narrative 12/12/2024 7:33 PM EST [address] [address] XRay Report Signed Patient: Jaziel Barrett MR#: [id number] : 1970 Acct:[id number] Age/Sex: 54 / M ADM Date: 12/12/24 Loc: PRIS[facility]LLA MCINTYRE Attending Dr: Donovan Regan MD Ordering Physician: Kirit Ball Date of Service: 12/12/24 Procedure(s): XR chest 2V Accession Number(s): [id number] cc: Name,Marv SALAZAR; Kirit Ball Reason for Exam: trauma CLINICAL HISTORY: trauma --- Additional Notes or Special Instructions: Collared @ [address] [place] [address] 2 view chest x-ray Comparison: None provided Findings: Hypoventilatory exam. No consolidation or effusion. Normal size heart. No acute fracture. IMPRESSION: 1. No acute findings. This document has been electronically signed by: Carrie Antonio MD on 12/12/2024 19:32:08 Dictated By: Carrie Antonio MD Signed By: <Electronically signed by Carrie Antonio MD in OV> 12/12/241932 DD/ 31 TD/TT: 12/12/241931 Manager Science: Procedure Note Donotuseinterpreter, Image - 12/12/[address] [address] XRay Report Signed Patient: Jaziel Barrett GMR#: [id number] : 1970Acct:[id number] Age/Sex: 54 / MADM Date: 12/12/24 Loc: PRISCILLA MCINTYRE Attending Dr: Donovan Regan MD Ordering Physician: Kirit Ball Date of Service: 12/12/24 Procedure(s): XR chest 2V Accession Number(s): [id number] cc: Name,Marv SALAZAR; Kirit Ball Reason for Exam: trauma CLINICAL HISTORY: trauma --- Additional Notes or Special Instructions:Nathaly @ [address] [facility] 2 view chest x-ray Comparison: None provided Findings: Hypoventilatory exam. No consolidation or effusion. Normal size heart. No acute fracture. IMPRESSION: 1. No acute findings. This document has been electronically signed by: Carrie Antonio MD on 12/12/2024 19:32:08 Dictated By: Carrie Antonio MD Signed By: <Electronically signed by Carrie Antonio MD in OV> 12/12/241932 DD/ 31 TD/TT: 12/12/241931 Manager Science: [facility] External Provider IMG XR PROCEDURES Final Result * (ABNORMAL) Urinalysis, Complete, with Reflex to Culture (12/12/2024 6:26 PM EST) Color Urine Yellow [facility] Appearance Urine Clear [facility] PH 8.5 5.0 - 9.0 [facility] Glucose Urine UA Negative Negative mg/dL [facility] Urine Blood Trace(A) Negative [facility] Specific Ethel - Urine >=1.030(H) 1.005 - 1.025 [facility] Urine Protein Negative Neg-Trace mg/dL [facility] Urine Ketones Negative Negative mg/dL [facility] Nitrite Urine Negative Negative [facility] Leukocyte Esterase Urine Negative Negative [facility] RBC Urine 3-5(A) 0 - 2 /HPF [facility] Urine WBC 0-5 0 - 5 /HPF [facility] Urine Squamous Epithelial Cell 0-2 0 - 2 /HPF [facility] Urine Bacteria None Seen None Seen [facility] Hyaline Casts, Urine 0-2 0 - 2 /LPF [facility] 12/12/2024 6:26 PM EST 12/12/2024 6:32 PM EST [facility] - 12/12/2024 7:03 PM EST [id number], [employer] Generic External Data Provider LAB URINE ORDERAB LES Final Result Performing Organization Address [facility] Co de Phone Number [facility] [address] [place] [phone] * (ABNORMAL) Urinalysis w/reflex microscopic (12/12/2024 6:26 PM EST) Color Urine Yellow [facility] Appearance Urine Clear [facility] PH 8.5 5.0 - 9.0 [facility] Glucose Urine UA Negative Negative mg/dL [facility] Urine Blood Trace(A) Negative [facility] Specific Ethel - Urine >=1.030(H) 1.005 - 1.025 [facility] Urine Protein Negative Neg-Trace mg/dL [facility] Urine Ketones Negative Negative mg/dL [facility] Nitrite Urine Negative Negative [facility] Leukocyte Esterase Urine Negative Negative [facility] 12/12/2024 6:26 PM EST 12/12/2024 6:32 PM EST [facility] - 12/12/2024 6:46 PM EST [id number], [employer] Generic External Data Provider LAB URINE ORDERAB LES Final Result Performing Organization Address [facility] Co de Phone Number [facility] [address] [place] [phone] * CT Cervical Spine w/o Contrast (12/12/2024 6:12 PM EST) Anatomical Region Laterality Modality Spine, C-spine Computed Tomogra phy 12/12/2024 6:12 PM EST Narrative 12/12/2024 6:13 PM EST [address] [address] [address] Scan Report Signed Patient: Jaziel Barrett MR#: [id number] : 1970 Acct:[id number] Age/Sex: 54 / M ADM Date: 12/12/24 Loc: HO.ED Attending Dr: Ordering Physician: Kirit Ball Date of Service: 12/12/24 Procedure(s): CT cervical spine wo IV con Accession Number(s): [id number] cc: Marv Workman MD; Kirit Ball Report Number: [id number]: Total DLP = 809.38 mGy-cm Reason for [...] in OV> 12/12/241812 DD/ 11 TD/TT: 12/12/241811 Manager Science: Procedure Note Donotuseinterpreter, Image - 12/12/[address] [place] [address] [address] Scan Report Signed Patient: Jaziel Barrett R#: [id number] : 1970Acct:[id number] Age/Sex: 54 / MADM Date: 12/12/24 Loc: .ED Attending Dr: Ordering Physician: Kirit Ball Date of Service: 12/12/24 Procedure(s): CT cervical spine wo IV con Accession Number(s): [id number] cc: Marv Workman MD; Kirit Ball Report Number: [id number]: Total DLP = 809.38 mGy-cm Reason for [...] in OV> 12/12/241812 DD/ 11 TD/TT: 12/12/241811 Manager Science: [facility] External Provider IMG CT PROCEDURES Final Result * CT Abdomen Pelvis w/ Contrast (12/12/2024 5:48 PM EST) Anatomical Region Laterality Modality Body, Pelvis, Abdomen Computed T omography 12/12/2024 5:48 PM EST Narrative 12/12/2024 5:50 PM EST [place] [address] CT Scan Report Signed Patient: Jaziel Barrett MR#: [id number] : 1970 Acct:[id number] Age/Sex: 54 / M ADM Date: 12/12/24 Loc: HO.ED Attending Dr: Ordering Physician: Kirit Ball Date of Service: 12/12/24 Procedure(s): CT abdomen pelvis w IV con Accession Number(s): [id number] cc: Name,Marv SALAZAR; Kirit Ball Report Number: [id number]: Total DLP = 1083.18 mGy-cm Reason for [...] in OV> 12/12/241748 DD/ 47 TD/TT: 12/12/241747 Manager Science: Procedure Note Donotuseinterpreter, Image - 12/12/[address] [place] [address] [address] Scan Report Signed Patient: Jaziel Barrett GMR#: [id number] : 1970Acct:[id number] Age/Sex: 54 / MADM Date: 12/12/24 Loc: HO.ED Attending Dr: Ordering Physician: Kirit Ball Date of Service: 12/12/24 Procedure(s): CT abdomen pelvis w IV con Accession Number(s): [id number] cc: Name,Marv SALAZAR; Kirit Ball Report Number: [id number]: Total DLP = 1083.18 mGy-cm Reason for [...] MD on 12/12/2024 17:48:45 Dictated By: Ken Caberra MD Signed By: <Electronically signed by Ken Cabrera MD in OV> 12/12/24 1749 DD/ 47 TD/TT: 12/12/241747 Manager Science: [facility] External Provider IMG CT PROCEDURES Final Result * CT Head w/o Contrast (12/12/2024 5:44 PM EST) Anatomical Region Laterality Modality Head, Neck Computed Tomogra phy 12/12/2024 5:44 PM EST Narrative 12/12/2024 5:45 PM EST [place] [address] CT Scan Report Signed Patient: Jaziel Barrett MR#: [id number] : 1970 Acct:[id number] Age/Sex: 54 / M ADM Date: 12/12/24 Loc: HO.ED Attending Dr: Ordering Physician: Kirit Ball Date of Service: 12/12/24 Procedure(s): CT head/brain wo IV con Accession Number(s): [id number] cc: Name,Marv SALAZAR; Kirit Ball Report Number: [id number]: Total DLP = 856.42 mGy-cm Reason for [...] in OV> 12/12/241743 DD/ 43 TD/TT: 12/12/241743 Manager Science: Procedure Note Reneeter, Image - 12/12/[address] [place] [address] [address] Scan Report Signed Patient: Jaziel Barrett GMR#: [id number] : 1970Acct:[id number] Age/Sex: 54 / MADM Date: 12/12/24 Loc: HO.ED Attending Dr: Ordering Physician: Kirit Ball Date of Service: 12/12/24 Procedure(s): CT head/brain wo IV con Accession Number(s): [id number] cc: NameMarv MD; Kirit Ball Report Number: [id number]: Total DLP = 856.42 mGy-cm Reason for [...] in OV> 12/12/241743 DD/ 43 TD/TT: 12/12/241743 Manager Science: [facility] External Provider IMG CT PROCEDURES Final Result * High Sensitivity Troponin I (12/12/2024 4:44 PM EST) [facility] TROPONIN I HIGH SENSITIVITY <2.7 <3.5 - 35.0 ng/L [facility] Comment:The Vee high sens itivity Troponin-I results should beused in conjunction with other diagnostic information suchas ECG, clinical observations and information, and patientsymptoms to aid in the diagnosis of [place]. 12/12/2024 4:44 PM EST 12/12/2024 4:48 PM EST Generic External Data Provider LAB BLOOD ORDERAB LES Final Result [facility] [address] [place] [phone] * (ABNORMAL) Comprehensive Metabolic Panel (12/12/2024 3:49 PM EST) [facility] Sodium 140 135 - 145 mmol/L [facility] Potassium 3.8 3.3 - 5.1 mmol/L [facility] Comment:Slight Hemolysis.Int erpret result with caution. Chloride 102 96 - 108 mmol/L [facility] Carbon Dioxide 30(H) 22 - 29 mmol/L [facility] Anion Gap 12 12 - 20 [facility] Urea Nitrogen (BUN) 13 9 - 16 mg/dL [facility] Creatinine, Serum 0.87 0.5 - 1.4 mg/dL [facility] Creatinine Clr Calc Pharmacy 123.6 [facility] Comment:eGFR (calculated fro m the MDRD study equation) and eCrCl(calculated from the Cockcroft-Gault equation) are based ondifferent parameters and may not yield comparable results.If eCrCl result is absurd, please check patient'sheight/weight. Estimated Glomerular Filt Rate >60 [facility] Comment:Chronic Kidney Disea se: Estimated GFR < 60 mL/min/1.01g9Twdblm Kidney Disease: Estimated GFR < 15 mL/min/1.73m2 Glucose 105 60 - 115 mg/dL [facility] Calcium 8.8 8.4 - 10.2 mg/dL [facility] Bilirubin, Total 2.0(H) 0.0 - 1.0 mg/dL [facility] Aspartate Amino Transferase 18 5 - 37 U/L [facility] Comment:Slight Hemolysis.Int erpret result with caution. Alanine Aminotransferase 16 0 - 40 U/L [facility] Total Protein 7.7 6.5 - 8.0 g/dL [facility] Albumin Level 4.2 3.5 - 5.0 g/dL [facility] Alkaline Phosphatase 62 39 - 117 U/L [facility] 12/12/2024 3:49 PM EST 12/12/2024 3:52 PM EST us Generic External Data Provider LAB BLOOD ORDERAB LES Final Result Performing Organization Address City/State/[facility] Co de Phone Number [facility] [address] [place] [phone] * (ABNORMAL) CBC auto differential (12/12/2024 3:49 PM EST) White Blood Count 12.9(H) 4.8 - 10.8 X10*3/uL [facility] Red Blood Count 4.82 4.60 - 5.80 X10*6/uL [facility] Hemoglobin 14.4 14.0 - 18.0 g/dl [facility] Hematocrit 44.0 42.0 - 52.0 % [facility] Mean Corpuscular Volume 91.3 80.0 - 98.0 fL [facility] Mean Corpuscular Hemoglobin 29.9 27.0 - 33.0 pg [facility] Mean Corpuscular HGB Conc 32.7 31.0 - 36.0 g/dl [facility] Red Cell Distribution Width 13.2 11.0 - 16.0 % [facility] Platelet Count 258 160 - 400 X10*3/uL [facility] Mean Platelet Volume 9.0(L) 9.4 - 12.4 fL [facility] Neutrophils Percent Auto 74.0(H) 45 - 73 % [facility] Imm Gran Pct Auto 0.5(H) 0.0 - 0.4 % [facility] Lymphocytes Percent Auto 14.0(L) 20 - 40 % [facility] Monocytes Percent Auto 10.4 2 - 11 % [facility] Eosinophils Percent Auto 0.7 0 - 4 % [facility] Basophils Percent Auto 0.4 0 - 2 % [facility] NRBC Pct Auto 0.0 0.0 - 0.2 /100WBC [facility] Neutrophils Absolute Auto 9.6(H) 2.0 - 8.3 x10*3/uL [facility] Imm Gran Abs Auto 0.07(H) 0.00 - 0.03 X10*3/uL [facility] Lymphocytes Absolute Auto 1.8 1.2 - 4.9 X10*3/uL [facility] Monocytes Absolute Auto 1.4(H) 0.1 - 1.2 X10*3/uL [facility] Eosinophils Absolute Auto 0.1 0.0 - 0.4 X10*3/uL [facility] Basophils Absolute Auto 0.1 0.0 - 0.2 X10*3/uL [facility] NRBC Abs Auto 0.000 0.0 - 0.012 X10*3/uL [facility] 12/12/2024 3:49 PM EST 12/12/2024 3:52 PM EST us Generic External Data Provider LAB BLOOD ORDERAB LES Final Result [facility] [address] [place] [phone] * XR KUB and Upright 2 Views (12/12/2024 3:28 PM EST) Anatomical Region Laterality Modality Radiographic Iman ging 12/12/2024 3:28 PM EST Narrative 12/12/2024 3:41 PM EST [address] [address] XRay Report Signed Patient: Jaziel Barrett MR#: [id number] : 1970 Acct:[id number] Age/Sex: 54 / M ADM Date: 12/12/24 Loc: HO.ED Attending Dr: Ordering Physician: Petrona Florence NP Date of Service: 12/12/24 Procedure(s): XR KUB Accession Number(s): [id number] cc: Jacinta,Marv SALAZAR; Petrona Florence NP Reason for Exam: LLQ [...] by: Donald Shields MD 12/12/2024 03:38 PM [facility] Dictated By: Donald Shields MD Signed By: <Electronically signed by Donald Shields MD in OV> 12/12/24 1538 DD/ 1528 TD/TT: 12/12/24 1530 Manager Science: Procedure Note Donotuseinterpreter, Image - 12/12/[address] [address] XRay Report Signed Patient: Jaziel Barrett GMR#: [id number] : 1970Acct:[id number] Age/Sex: 54 / MADM Date: 12/12/24 Loc: HO.ED Attending Dr: Ordering Physician: Petrona Florence NP Date of Service: 11/04/25 Procedure(s): XR KUB Accession Number(s): [id number] cc: Marv Workman MD; Petrona Florence NP [...] by: Donald Shields MD 12/12/2024 03:38 PM [facility] Workstation: [id number] Dictated By: Donald Shields MD Signed By: <Electronically signed by Donald Shields MD in OV> 12/12/24 1538 DD/ 1528 TD/TT: 12/12/24 1530 Manager Science: [facility] External Provider IMG XR PROCEDURES Final Result documented in this encounter Visit Diagnoses Not on filedocumented in this encounter Additional Health Concerns Assessment Noted Time PHQ-9 Depression Total Score: 0 09/22/19 24 3:03 PM EDT documented as of this encounter Care Teams Crude Unit Operator Relationship Specialty Start Date End Date NameMarv MD [address] [place] [phone] PCP - General Family Medicine 03/28/15 documented as of this encounter
--- OUTSIDE RECORDS SUMMARY | 2024-12-13 14:38 | XMS_ITS | Encounter Summary ---
Author Organization [employer] Address [address] [place] [address] 7 [place] [address] Care Team Providers Care Surgical Elastic Knitter Name Role Phone Name, Marv SALAZAR Primary Care Provider Reason for Visit * Reason Onset Date Comments Results 12/11/2024 Encounter Details Date Type Department Care Team ([facility] st Contact Info) Description 12/11/2024 Results Follow-Up [facility] [address] [place] [phone] Tamara Contreras MD [address] [place] [address] CBC auto differential, Sed Rate by Modified [...] encounter Miscellaneous Notes * Telephone Encounter - Patricia Isbell RN - 12/13/2024 8:53 AM EST Pt is currently admitted at [facility] as of 12/13/24. Team RN's to status check and book HDF upon discharge. * Telephone Encounter - Abhishek Lancaster RN - 12/12/2024 3:36 PM EST TC x2 placed to patient [phone] using S #ID [id number] regarding below message. RN informed patient of his lab results showing mild inflammation with minimally high WBC and ESR which cloud be related to his Diverticulitis. Patient reported he is currently at [facility] ED for left sided abdominal pain with a fever. RN advised patient that if he gets admitted to please call [facility]. RN scheduled an appointment with patient PCP just in case he is discharge from the hospital. Patient verbalized understanding. PT to F/U PRN. * Telephone Encounter - Marv Wu - 12/12/2024 1:43 PM EST Tc from pt spouse calling back to update call back number. Contact spouse at [phone] * Telephone Encounter - Mahendra Bartlett - 12/12/2024 12:35 PM EST Tc from pt requesting a call back regarding prior message Contact pt at [phone] (malay) * Telephone Encounter - Abhishek Lancaster RN - 12/12/2024 12:10 PM EST TC placed to patient [phone] using [facility] #ID [id number] regarding below message. RN left an VM [...] Description 12/19/2024 9:30 AM EST Office Visit [facility] [address] [place] [phone] Name, MD Marv [address] [place] [phone] documented as of this encounter Visit Diagnoses Not on filedocumented in this encounter Additional Health Concerns Assessment Noted Time PHQ-9 Depression Total Score: 0 09/22/19 24 3:03 PM EDT documented as of this encounter Care Teams Surgical Elastic Knitter Relationship Specialty Start Date End Date Name, MD Marv [address] [place] [phone] PCP - General Family Medicine 03/28/15 documented as of this encounter
--- OUTSIDE RECORDS SUMMARY | 2024-12-13 14:39 | XMS_ITS | Encounter Summary ---
Author Organization [employer] Address [address] [place] [address] 7 [place] [address] Care Team Providers Care Rn Occupational Health Name Role Phone Name, Marv SALAZAR Primary Care Provider [phone] Reason for Visit * Reason Onset Date Comments FYI 12/13/2024 Encounter Details Date Type Department Care Team ([facility] st Contact Info) Description 12/13/2024 Telephone [facility] [address] [place], [place] [phone] Name, MD Marv [address] [place] [address] FYI Social History Tobacco Use Types Packs/Day Years [...] Encounter - Patricia Isbell RN - 12/13/2024 9:00 AM EST Noted. Team nurses to status check and schedule HDF upon discharge. Message forwarded to blue team nurses for 12/14/24 on separate encounter. * Telephone Encounter - Marv Wu - 12/13/2024 8:44 AM EST Tc from pt spouse reporting that pt is currently admitted in [facility] since 12/12. Any questions contact pt at [phone] documented in this encounter Plan of Treatment Upcoming Encounters Date Type Department Care Team (Late st Contact Info) Description 12/19/2024 9:30 AM EST Office Visit [facility] [address] [place] [address] Name, MD Marv [address] [place] [address] documented as of this encounter Visit Diagnoses Not on filedocumented in this encounter Additional Health Concerns Assessment Noted Time PHQ-9 Depression Total Score: 0 09/22/19 24 3:03 PM EDT documented as of this encounter Care Teams Rn Occupational Health Relationship Specialty Start Date End Date NameMarv MD [address] [place] [address] PCP - General Family Medicine 03/28/15 documented as of this encounter
--- OUTSIDE RECORDS SUMMARY | 2024-12-13 14:39 | XMS_ITS | Encounter Summary ---
Author Organization [employer] Address [address] [place] [address] [place] [address] Care Team Providers Care Manager Academic Name Role Phone NameMarv MD Primary Care Provider [phone] Reason for Visit * Reason Comments Med Refill Encounter Details Date Type Department Care Team (Late Contact Info) Description 04/28/2022 Refill [facility] MEDICINE [address] [place] [phone] NameMarv MD [address] [place] [address] [phone] Social History Tobacco Use Types Packs/Day Years [...] Description 12/19/2024 9:30 AM EST Office Visit [facility] MEDICINE [address] [place] [phone] Marv Workman MD [address] [place] [phone] documented as of this encounter Visit Diagnoses Not on filedocumented in this encounter Care Teams Manager Academic Relationship Specialty Start Date End Date Marv Workman MD [address] [place] [address] [place] [address] PCP - General Family Medicine 03/28/15 documented as of this encounter
--- OUTSIDE RECORDS SUMMARY | 2024-12-13 14:39 | XMS_ITS | Encounter Summary ---
Author Organization [employer] Address [address] [place] [address] 7 [place] [address] Care Team Providers Care Machine Filler Name Role Phone Name, Marv SALAZAR Primary Care Provider [phone] Encounter Details Date Type Department Care Team (Late st Contact Info) Description 07/13/2022 Abstract [facility] MEDICINE [address] [place] [address] [phone] NameMarv MD [address] [place] [address] [phone] Social History Tobacco Use Types Packs/Day Years [...] Description 12/19/2024 9:30 AM EST Office Visit [facility] MEDICINE [address] [place] [address] [phone] NameMarv MD [address] [place] [address] [phone] documented as of this encounter Procedures Procedure Name Priority Date/Time Associated Diagnosis Comments COLONOSCOPY Routine 01/23/2014 10:36 AM EST documented in this encounter Results * Hm Colonoscopy (01/23/2014 10:36 AM EST) Colonoscopy Normal Normal Narrative Allie Clarke - 01/23/2014 10:36 AM EST Recommended 10 year follow up us Historical Provider HEALTH MAINTENANCE Final Result documented in this encounter Visit Diagnoses Not on filedocumented in this encounter Care Teams Machine Filler Relationship Specialty Start Date End Date Name, MD Marv [address] [place] [phone] PCP - General Family Medicine 03/28/15 documented as of this encounter
--- OUTSIDE RECORDS SUMMARY | 2024-12-13 14:39 | XMS_ITS | Clinical Summary ---
Author Organization [employer] Address [address] [place] [address] 7t [place] [address] Care Team Providers Care Warehouse Insulation Worker Name Role Phone Name, Marv SALAZAR Primary Care Provider [phone] Allergies No known active allergies Medications atorvastatin (Lipitor) 20 MG tabletIndicatio ns:High cholesterol Take 1 tablet (20 mg) by mouth Once per day. 30 tablet 11 024 Active acyclovir (Zovirax) 400 MG tablet TAKE [...] for up to 10 days. 30 capsule 2024 Active Diclofenac Sodium 1 % gel [...] (03/10/2022): Normal [address] Helms at [facility] Essential hypertension 01/22/2017 Genital herpes simplex 10/23/2015 Obesity 04/08/2015 Encounters Date Type Department Care Team Description 12/13/2024 Telephone [facility] MEDICINE [address] [place] [phone] Name, MD Marv FYI 12/12/2024 Orders Only [facility] External Provider, [facility] 12/12/2024 Patient Outreach [facility] [address] [place] [address] Marv Workman MD Pre-visit Planning (SDOH unable to reach [facility]) 12/11/2024 1:40 PM EST Office Visit [facility] WALK-IN [address] [address] Tamara Contreras MD Left lower quadrant abdominal pain (Primary Dx); Diverticulosis of colon 12/11/2024 Results Follow-Up [facility] WALK-IN CENTER [address] [place] [phone] Tamara Contreras MD CBC auto differential, Sed Rate by Modified [place] 12/11/2024 Travel 12/04/2024 Refill [facility] [address] [place] [address] Marv Workman MD Chronic left shoulder pain 11/22/2024 Refill [facility] MEDICINE [address] [place] [phone] Marv Workman MD Chronic left shoulder pain 11/17/2024 Refill [facility] [address] [place] [address] Marv Workman MD 11/06/2024 Refill [facility] MEDICINE [address] [place] [address] Marv Workman MD Essential hypertension 10/26/2024 Telephone [facility] MEDICINE [address] [place] [phone] Estephania Arnett MA chart prep 10/06/2024 Refill [facility] MEDICINE [address] [place] [phone] Marv Workman MD Folliculitis 09/20/2024 Telephone [facility] MEDICINE [address] [place] [phone] Marv Workman MD Referral from Last 3 [...] Visit [facility] MEDICINE [address] [place] [address] Name, MD Marv [address] [place] [address] Health Maintenance Due Date Last Done Comments [...] Screening 12/11/2025 12/11/2024 Lipid Panel 12/11/2029 12/11/2024, 05/2023, 01/14/2023, Additional history exists DTaP/Tdap/Td Vaccines (3 [...] Recently Relevant to Health Maintenance Results * XR Chest 2 Views (12/12/2024 7:32 PM EST) Anatomical Region Laterality Modality Chest Radiographic Iman ging 12/12/2024 7:32 PM EST Narrative 12/12/2024 7:33 PM EST [address] [address] XRay Report Signed Patient: Jaziel Barrett MR#: [id number] : 1970 Acct:[id number] Age/Sex: 54 / M ADM Date: 12/12/24 Loc: [place] [address]: Donovan Regan MD Ordering Physician: Kirit Ball Date of Service: 12/12/24 Procedure(s): XR chest 2V Accession Number(s): [id number] cc: Marv Workman MD; Kirit Ball Reason for Exam: trauma CLINICAL HISTORY: trauma --- Additional Notes or Special Instructions: Collared @ [facility] 2 view chest x-ray Comparison: None provided Findings: Hypoventilatory exam. No consolidation or effusion. Normal size heart. No acute fracture. IMPRESSION: 1. No acute findings. This document has been electronically signed by: Carrie Antonio MD on 12/12/2024 19:32:08 Dictated By: Carrie Antonio MD Signed By: <Electronically signed by Carrie Antonio MD in OV> 12/12/241932 DD/ 31 TD/TT: 12/12/241931 Spray Painter Helper: Procedure Note Donotuseinterpreter, Image - 12/12/2024 [place] [address] XRay Report Signed Patient: Jaziel Barrett GMR#: [id number] : 1970Acct:[id number] Age/Sex: 54 / MADM Date: 12/12/24 [facility] [place] [place] Attending Dr: Donovan Regan MD Ordering Physician: Kirit Ball Date of Service: 12/12/24 Procedure(s): XR chest 2V Accession Number(s): [id number] cc: Marv Workman MD; Kirit Ball Reason for Exam: trauma CLINICAL HISTORY: trauma --- Additional Notes or Special Instructions:Collared @ 2107 - 2 view chest x-ray Comparison: None provided Findings: Hypoventilatory exam. No consolidation or effusion. Normal size heart. No acute fracture. IMPRESSION: 1. No acute findings. This document has been electronically signed by: Carrie Antonio MD on 12/12/2024 19:32:08 Dictated By: Carrie Antonio MD Signed By: <Electronically signed by Carrie Antonio MD in OV> 12/12/241932 DD/ 31 TD/TT: 12/12/241931 Spray Painter Helper: [facility] External Provider IMG XR PROCEDURES Final Result * (ABNORMAL) Urinalysis, Complete, with Reflex to Culture (12/12/2024 6:26 PM EST) Color Urine Yellow [facility] Appearance Urine Clear [facility] PH 8.5 5.0 - 9.0 [facility] Glucose Urine UA Negative Negative mg/dL [facility] Urine Blood Trace(A) Negative [facility] Specific [place] - Urine >=1.030(H) 1.005 - 1.025 [facility] Urine Protein Negative Neg-Trace mg/dL [facility] Urine Ketones Negative Negative mg/dL [facility] Nitrite Urine Negative Negative [facility] Leukocyte Esterase Urine Negative Negative [facility] RBC Urine 3-5(A) 0 - 2 /HPF [facility] Urine WBC 0-5 0 - 5 /HPF [facility] Urine Squamous Epithelial Cell 0-2 0 - 2 /HPF [facility] Urine Bacteria None Seen None Seen [facility] Hyaline Casts, Urine 0-2 0 - 2 /LPF [facility] 12/12/2024 6:26 PM EST 12/12/2024 6:32 PM EST Narrative [facility] - 12/12/2024 7:03 PM EST [id number], Clean Catch Generic External Data Provider LAB URINE ORDERAB LES Final Result [facility] [address] [place] [phone] * (ABNORMAL) Urinalysis w/reflex microscopic (12/12/2024 6:26 PM EST) Color Urine Yellow [facility] Appearance Urine Clear [facility] PH 8.5 5.0 - 9.0 [facility] Glucose Urine UA Negative Negative mg/dL [facility] Urine Blood Trace(A) Negative [facility] Specific [place] - Urine >=1.030(H) 1.005 - 1.025 [facility] Urine Protein Negative Neg-Trace mg/dL [facility] Urine Ketones Negative Negative mg/dL [facility] Nitrite Urine Negative Negative [facility] Leukocyte Esterase Urine Negative Negative [facility] 12/12/2024 6:26 PM EST 12/12/2024 6:32 PM EST Narrative [facility] - 12/12/2024 6:46 PM EST [id number], Clean Catch us Generic External Data Provider LAB URINE ORDERAB LES Final Result Performing Organization Address City/State/[facility] Co de Phone Number [facility] [address] [place] [address] [phone] * CT Cervical Spine w/o Contrast (12/12/2024 6:12 PM EST) Anatomical Region Laterality Modality Spine, C-spine Computed Tomogra phy 12/12/2024 6:12 PM EST Narrative 12/12/2024 6:13 PM EST [address] [address] [address] Scan Report Signed Patient: Jaziel Barrett MR#: [id number] : 1970 Acct:[id number] Age/Sex: 54 / M ADM Date: 12/12/24 Loc: .ED Attending Dr: Ordering Physician: Kirit Ball Date of Service: 12/12/24 Procedure(s): CT cervical spine wo IV con Accession Number(s): [id number] cc: Name,Marv SALAZAR; Kirit Ball Report Number: [id number]: Total DLP = 809.38 mGy-cm Reason for [...] in OV> 12/12/241812 DD/ 11 TD/TT: 12/12/241811 Spray Painter Helper: Procedure Note Donotuseinterpreter, Image - 12/12/[address] [place] [address] [address] Scan Report Signed Patient: Jaziel Barrett GMR#: [id number] : 1970Acct:[id number] Age/Sex: 54 / MADM Date: 12/12/24 Loc: .ED Attending Dr: Ordering Physician: Kirit Ball Date of Service: 12/12/24 Procedure(s): CT cervical spine wo IV con Accession Number(s): [id number] cc: Marv Workman MD; Kirit Ball Report Number: [id number]: Total DLP = 809.38 mGy-cm Reason for [...] signed by Carrie Antonio MD in OV> 12/12/24 1813 DD/ 11 TD/TT: 12/12/241811 Spray Painter Helper: [facility] External Provider IMG CT PROCEDURES Final Result * CT Abdomen Pelvis w/ Contrast (12/12/2024 5:48 PM EST) Anatomical Region Laterality Modality Body, Pelvis, Abdomen Computed T omography 12/12/2024 5:48 PM EST Narrative 12/12/2024 5:50 PM EST [address] [address] [address] Scan Report Signed Patient: Jaziel Barrett MR#: [id number] : 1970 Acct:[id number] Age/Sex: 54 / M ADM Date: 12/12/24 Loc: HO.ED Attending Dr: Ordering Physician: Kirit Ball Date of Service: 12/12/24 Procedure(s): CT abdomen pelvis w IV con Accession Number(s): [id number] cc: Name,Marv SALAZAR; Kirit Ball Report Number: [id number]: Total DLP = 1083.18 mGy-cm Reason for [...] in OV> 12/12/241748 DD/ 47 TD/TT: 12/12/241747 Spray Painter Helper: Procedure Note Donotuseinterpreter, Image - 12/12/[address] [place] [address] [address] Scan Report Signed Patient: Jaziel Barrett GMR#: [id number] : 1970Acct:[id number] Age/Sex: 54 / MADM Date: 12/12/24 Loc: HO.ED Attending Dr: Ordering Physician: Kirit Ball Date of Service: 12/12/24 Procedure(s): CT abdomen pelvis w IV con Accession Number(s): [id number] cc: Name,Marv SALAZAR; Kirit Ball Report Number: [id number]: Total DLP = 1083.18 mGy-cm Reason for [...] in OV> 12/12/241748 DD/ 47 TD/TT: 12/12/241747 Spray Painter Helper: [facility] External Provider IMG CT PROCEDURES Final Result * CT Head w/o Contrast (12/12/2024 5:44 PM EST) Anatomical Region Laterality Modality Head, Neck Computed Tomogra phy 12/12/2024 5:44 PM EST Narrative 12/12/2024 5:45 PM EST [place] [address] CT Scan Report Signed Patient: Jaziel Barrett MR#: [id number] : 1970 Acct:[id number] Age/Sex: 54 / M ADM Date: 12/12/24 Loc: HO.ED Attending Dr: Ordering Physician: Kirit Ball Date of Service: 12/12/24 Procedure(s): CT head/brain wo IV con Accession Number(s): [id number] cc: Marv Workman MD; Kirit Ball Report Number: [id number]: Total DLP = 856.42 mGy-cm Reason for [...] in OV> 12/12/241743 DD/ 43 TD/TT: 12/12/241743 Spray Painter Helper: Procedure Note Eliza, Image - 12/12/[address] [place] [address] [address] Scan Report Signed Patient: Jaziel Barrett GMR#: [id number] : 1970Acct:[id number] Age/Sex: 54 / MADM Date: 12/12/24 Loc: HO.ED Attending Dr: Ordering Physician: Kirit Ball Date of Service: 12/12/24 Procedure(s): CT head/brain wo IV con Accession Number(s): [id number] cc: Name,Marv SALAZAR; Kirit Ball Report Number: [id number]: Total DLP = 856.42 mGy-cm Reason for [...] in OV> 12/12/241743 DD/ 43 TD/TT: 12/12/241743 Spray Painter Helper: [facility] External Provider IMG CT PROCEDURES Final Result * High Sensitivity Troponin I (12/12/2024 4:44 PM EST) TROPONIN I HIGH SENSITIVITY <2.7 <3.5 - 35.0 ng/L [facility] Comment:The Vee high sens itivity Troponin-I results should beused in conjunction with other diagnostic information suchas ECG, clinical observations and information, and patientsymptoms to aid in the diagnosis of CO. 12/12/2024 4:44 PM EST 12/12/2024 4:48 PM EST us Generic External Data Provider LAB BLOOD ORDERAB LES Final Result [facility] [address] [place] [address] [phone] * (ABNORMAL) CBC auto differential (12/12/2024 3:49 PM EST) Only the most recent of2 resultswithin the time period is included. White Blood Count 12.9(H) 4.8 - 10.8 X10*3/uL [facility] Red Blood Count 4.82 4.60 - 5.80 X10*6/uL [facility] Hemoglobin 14.4 14.0 - 18.0 g/dl [facility] Hematocrit 44.0 42.0 - 52.0 % [facility] Mean Corpuscular Volume 91.3 80.0 - 98.0 fL [facility] Mean Corpuscular Hemoglobin 29.9 27.0 - 33.0 pg [facility] Mean Corpuscular HGB Conc 32.7 31.0 - 36.0 g/dl [facility] Red Cell Distribution Width 13.2 11.0 - 16.0 % [facility] Platelet Count 258 160 - 400 X10*3/uL [facility] Mean Platelet Volume 9.0(L) 9.4 - 12.4 fL [facility] Neutrophils Percent Auto 74.0(H) 45 - 73 % [facility] Imm Gran Pct Auto 0.5(H) 0.0 - 0.4 % [facility] Lymphocytes Percent Auto 14.0(L) 20 - 40 % [facility] Monocytes Percent Auto 10.4 2 - 11 % [facility] Eosinophils Percent Auto 0.7 0 - 4 % [facility] Basophils Percent Auto 0.4 0 - 2 % [facility] NRBC Pct Auto 0.0 0.0 - 0.2 /100WBC [facility] Neutrophils Absolute Auto 9.6(H) 2.0 - 8.3 x10*3/uL [facility] Imm Gran Abs Auto 0.07(H) 0.00 - 0.03 X10*3/uL [facility] Lymphocytes Absolute Auto 1.8 1.2 - 4.9 X10*3/uL [facility] Monocytes Absolute Auto 1.4(H) 0.1 - 1.2 X10*3/uL [facility] Eosinophils Absolute Auto 0.1 0.0 - 0.4 X10*3/uL [facility] Basophils Absolute Auto 0.1 0.0 - 0.2 X10*3/uL [facility] NRBC Abs Auto 0.000 0.0 - 0.012 X10*3/uL [facility] 12/12/2024 3:49 PM EST 12/12/2024 3:52 PM EST us Generic External Data Provider LAB BLOOD ORDERAB LES Final Result [facility] [address] [place] [phone] * (ABNORMAL) Comprehensive Metabolic Panel (12/12/2024 3:49 PM EST) Only the most recent of2 resultswithin the time period is included. Sodium 140 135 - 145 mmol/L [facility] Potassium 3.8 3.3 - 5.1 mmol/L [facility] Comment:Slight Hemolysis.Int erpret result with caution. Chloride 102 96 - 108 mmol/L [facility] Carbon Dioxide 30(H) 22 - 29 mmol/L [facility] Anion Gap 12 12 - 20 [facility] Urea Nitrogen (BUN) 13 9 - 16 mg/dL [facility] Creatinine, Serum 0.87 0.5 - 1.4 mg/dL [facility] Creatinine Clr Calc Pharmacy 123.6 [facility] Comment:eGFR (calculated fro m the MDRD study equation) and eCrCl(calculated from the Cockcroft-Gault equation) are based ondifferent parameters and may not yield comparable results.If eCrCl result is absurd, please check patient'sheight/weight. Estimated Glomerular Filt Rate >60 [facility] Comment:Chronic Kidney Disea se: Estimated GFR < 60 mL/min/1.53t0Gjgtng Kidney Disease: Estimated GFR < 15 mL/min/1.73m2 Glucose 105 60 - 115 mg/dL [facility] Calcium 8.8 8.4 - 10.2 mg/dL [facility] Bilirubin, Total 2.0(H) 0.0 - 1.0 mg/dL [facility] Aspartate Amino Transferase 18 5 - 37 U/L [facility] Comment:Slight Hemolysis.Int erpret result with caution. Alanine Aminotransferase 16 0 - 40 U/L [facility] Total Protein 7.7 6.5 - 8.0 g/dL [facility] Albumin Level 4.2 3.5 - 5.0 g/dL [facility] Alkaline Phosphatase 62 39 - 117 U/L [facility] 12/12/2024 3:49 PM EST 12/12/2024 3:52 PM EST us Generic External Data Provider LAB BLOOD ORDERAB LES Final Result Performing Organization Address City/State/[facility] Co de Phone Number [facility] [address] [place] [phone] * XR KUB and Upright 2 Views (12/12/2024 3:28 PM EST) Anatomical Region Laterality Modality Radiographic Iman ging 12/12/2024 3:28 PM EST Narrative 12/12/2024 3:41 PM EST [address] [address] XRay Report Signed Patient: Jaziel Barrett MR#: [id number] : 1970 Acct:[id number] Age/Sex: 54 / M ADM Date: 12/12/24 Loc: HO.ED Attending Dr: Ordering Physician: Petrona Florence NP Date of Service: 12/12/24 Procedure(s): XR KUB Accession Number(s): [id number] cc: Marv Workman MD; Petrona Florence NP [...] by: Donald Shields MD 12/12/2024 03:38 PM [facility] Dictated By: Donald Shields MD Signed By: <Electronically signed by Donald Shields MD in OV> 12/12/24 1538 DD/ 1528 TD/TT: 12/12/24 1530 Spray Painter Helper: Procedure Note Donotuseinterpreter, Image - 12/12/2024 [place] [address] XRay Report Signed Patient: Jaziel Barrett GMR#: [id number] : 1970Acct:[id number] Age/Sex: 54 / MADM Date: 12/12/24 Loc: HO.ED Attending Dr: Ordering Physician: Petrona Florence NP Date of Service: 12/12/24 Procedure(s): XR KUB Accession Number(s): [id number] cc: Marv Workman MD; Petrona Florence NP [...] 12/12/24 1538 DD/ 1528 TD/TT: 12/12/24 1530 Spray Painter Helper: [facility] External Provider IMG XR PROCEDURES Final Result * (ABNORMAL) Sed Rate by Modified [place] (12/11/2024 2:27 PM EST) Erythrocyte Sedimentation Rate 22(H) 0 - 15 MM/HR [facility] Comment:Patients with polycy themia and many hemoglobin abnormalitiesmay have depressed sed rates whereas patients with anemiamay have elevated sed rates. Blood Venous blood specimen / Unknown 12/11/2024 2:27 PM EST 12/11/2024 4:08 PM EST Tamara Contreras MD LAB BLOOD ORDERABLES Fin al Result [facility] [address] [place] [phone] * PSA,Total (12/11/2024 2:27 PM EST) Prostate Specific Antigen 1.64 <0.05 - 4.0 ng/mL [facility] Comment:PSA methodology: Abb geeta Villalobos i ChemiluminescentMicroparticle Immunoassay (CMIA) Blood Venous blood specimen / Unknown 12/11/2024 2:27 PM EST 12/11/2024 4:08 PM EST us Marv Workman MD LAB BLOOD ORDERABLES Final Resul t Performing Organization Address [facility] Co de Phone Number [facility] [address] [place] [phone] * Hemoglobin A1c (12/11/2024 2:27 PM EST) Hemoglobin A1c 5.8 <6.0 % [facility] Comment:Hemoglobin A1C Refer ence Range Adults: 4.8 - 6.0 % Non diabetic: < 6.0 % Goal: < 7.0 %Additional Action Suggested: > 8.0 %Note: Hemoglobin A1c results are invalid for patients with abnormal amounts of HbF. Blood transfusions may impact the HbA1c concentration in the patient sample. Estimated Average Glucose 120 mg/dL [facility] Comment:eAG = Estimated ave rage glucose which is %A1C expressed asaverage glucose, using the formula of the Z5U-OlqohmmJbuuzxg Glucose study (ADAG), Diabetes Care, Vol.31,#8,Sep. 2007 Blood Venous blood specimen / Unknown 12/11/2024 2:27 PM EST 12/11/2024 4:08 PM EST us Marv Workman MD LAB BLOOD ORDERABLES Final Resul t Performing Organization Address [facility] Co de Phone Number [facility] [address] [place] [phone] * (ABNORMAL) Lipid Panel, Standard (12/11/2024 2:27 PM EST) Triglycerides 144 <150 mg/dL [facility] Comment:Desirable Triglyceri de: less than 150 mg/dLBorderline High Triglyceride 150-199 mg/dLHigh Triglyceride: 200-499 mg/dLVery High Triglyceride: greater than or equal to 5OO mg/dL Cholesterol 193 <200 mg/dL [facility] Comment:Desirable Cholestero l: less than 200 mg/dLBorderline High Cholesterol: 200-239 mg/dLHigh Cholesterol: greater than 239 mg/dL LDL Cholesterol Calculated 126(H) <100 mg/dL [facility] Comment:Desirable LDL: less than 100 mg/dLNear Optimal/Above Optimal LDL: 110- 129 mg/dLBorderline High LDL: 130-159 mg/dLHigh LDL: 160-189 mg/dLVery High LDL: greater than or equal to 190 mg/dL HDL Cholesterol 39(L) >40 mg/dL [facility] Comment:Desirable HDL: great er than 40 mg/dL Note: This HDL assay may give artificially low results in patients with liver disease. Blood Venous blood specimen / Unknown 12/11/2024 2:27 PM EST 12/11/2024 4:08 PM EST Marv Workman MD LAB BLOOD ORDERABLES Final Resul t [facility] [address] [place] [phone] * Hm Colonoscopy (01/23/2014 10:36 AM EST) Colonoscopy Normal Normal Narrative Allie Clarke - 01/23/2014 10:36 AM EST Recommended 10 year follow up Historical Provider HEALTH MAINTENANCE Final Result from Last 3 Months or Most Recently Relevant to Health Maintenance [facility] * Guarantor: Jaziel Barrett Account Type Relation to Patient Date of Phone Billing Address Personal/Family Self [place], [place] * Guarantor: Jaziel Barrett Account Type Relation to Patient Date of Phone Billing Address Personal/Family Self [place], [place] * Guarantor: Jaziel Barrett Account Type Relation to Patient Date of Phone Billing Address Personal/Family Self [place] Care Teams Warehouse Insulation Worker Relationship Specialty Start Date End Date Name, MD Marv [address] [place] [phone] PCP - General Family Medicine 03/28/15
--- OUTSIDE RECORDS SUMMARY | 2024-12-13 14:39 | XMS_ITS | Encounter Summary ---
Author Organization [employer] Address [address] [place] [address] [place] [address] Care Team Providers Care Spinner Operator Name Role Phone NameMarv MD Primary Care Provider [phone] Reason for Visit * Reason Comments Med Refill Encounter Details Date Type Department Care Team (Late Contact Info) Description 04/30/2022 Refill [facility] [address] [place] [phone] NameMarv MD [address] [place] [address] [phone] Social History Tobacco Use Types Packs/Day Years [...] Description 12/19/2024 9:30 AM EST Office Visit [facility] [address] [place] [phone] Marv Workman MD [address] [place] [phone] documented as of this encounter Visit Diagnoses Not on filedocumented in this encounter Care Teams Spinner Operator Relationship Specialty Start Date End Date Marv Workman MD [address] [place] [address] [place] [phone] PCP - General Family Medicine 03/28/15 documented as of this encounter
--- NOTE | 2024-12-13 14:52 | PM.EVENT ---
Event Note Date of Service: 12/13/24 Event Note: Seen on afternoon rounds Says he feels ?okay? Says he has abdominal pain is better compared to yesterday WBC was elevated today Abdomen is soft and benign We will follow closely as is a possibility that he may need resection depending on clinical course Continue IV antibiotics Keep NPO Explained plan to patient Hemodynamically stable Time Spent With Patient Time: Total time managing care of this patient today ____ minutes.
[2024-12-14] VITALS (7 sets, daily range): BP systolic 119–139; BP diastolic 59–81; PULSE 65–85; RESP 18–19; TEMP 36.8–37.5; O2SAT 95–99
[2024-12-14] MEDS: 0.9 % Sodium Chloride Flush 3 ML SYRINGE IVFLUSH
[2024-12-14] MEDS: Dextrose 5 % and 0.45 % NaCl 1,000 ML 100 ML IVCONT ×2 (01:21→10:45)
[2024-12-14 05:54] LABS: MANUAL DIFF FLAG NO
[2024-12-14 05:56] LABS: Hematocrit 36.6 % (42.0-52.0); Hemoglobin 12.0 g/dl (14.0-18.0); Imm Gran Abs Auto 0.07 X10*3/uL (0.00-0.03); Imm Gran Pct Auto 0.6 % (0.0-0.4); Lymphocytes Absolute Auto 1.3 X10*3/uL (1.2-4.9); Mean Corpuscular HGB Conc 32.8 g/dl (31.0-36.0); Mean Corpuscular Hemoglobin 30.1 pg (27.0-33.0); Mean Corpuscular Volume 91.7 fL (80.0-98.0); NRBC Abs Auto 0.000 X10*3/uL (0.0-0.012); NRBC Pct Auto 0.0 /100WBC (0.0-0.2); Platelet Count 244 X10*3/uL (160-400); Red Blood Count 3.99 X10*6/uL (4.60-5.80); White Blood Count 11.3 X10*3/uL (4.8-10.8)
--- NOTE | 2024-12-14 07:49 | PM.PNGS ---
Subjective Subjective Date of Service: 12/14/24 <[address] PA-C - Last Filed: 12/14/24 07:53> 12/14/24 <Everton Patterson MD - Last Filed: 12/14/24 09:37> Interval history: Feels improved this morning. Denies abd pain at rest. Passing flatus. No further fevers. <Farzaneh Way PA-C - Last Filed: 12/14/24 07:53> Physical Exam Vital Signs: Vital Signs: Last Vital Signs Temp 99.1 F 12/13/24 20:12 Pulse 85 12/14/24 03:53 Resp 20 12/13/24 20:00 BP 123/65 12/14/24 03:53 Pulse Ox 93 12/13/24 20:00 O2 Del Method Room Air 12/13/24 20:00 O2 Flow Rate 1 12/13/24 04:38 BMI result Body Mass Index 36.9 <[address] PA-C - Last Filed: 12/14/24 07:53> Const: General: comfortable, no acute distress and alert <Farzaneh Way PA-C - Last Filed: 12/14/24 07:53> Orientation/consciousness: patient oriented x3 <DOLLY Tinoco Last Filed: 12/14/24 07:53> Resp: Effort & Inspection: normal respiratory effort <Farzaneh Way PA-C - Last Filed: 12/14/24 07:53> GI: Other: protuberant abdomen soft, tender in the left mid abdomen <Farzaneh Way PA-C - Last Filed: 12/14/24 07:53> Palpation (GI): no guarding and not rigid <Farzaneh Way PA-C - Last Filed: 12/14/24 07:53> Skin: General skin exam: no rashes or lesions noted <DOLLY Tinoco Last Filed: 12/14/24 07:53> Neuro: General: patient oriented x3 and moves all extremities <DOLLY Tinoco Last Filed: 12/14/24 07:53> Objective Data Active Medications Acetaminophen (Acetaminophen 325 Mg Tablet) 650 mg PO Q6H PRN PRN Reason: Pain, Mild 1-3,fever,headache Last Admin: 12/13/24 19:12 Dose: 650 mg Documented By: YUE Calcium Carbonate (Calcium Carbonate 750 Mg Tab.Chew) 750 mg PO Q4H PRN PRN Reason: Heartburn Heparin Sodium (Porcine) (Heparin Sodium,Porcine 5,000 Unit/Ml Vial) 5,000 unit SUBCUT Q8H [facility] Last Admin: 12/14/24 03:42 Dose: 5,000 unit Documented By: CHRISTIANO Hydromorphone HCl (Hydromorphone Hcl 1 Mg/Ml Syringe) 0.5 mg IVPUSH Q4H PRN; Protocol PRN Reason: Breakthrough Pain Last Admin: 12/13/24 01:12 Dose: 0.5 mg Documented By: KIMBERLEY Dextrose/Sodium Chloride (D51/2ns) 1,000 mls @ 100 mls/hr IVCONT .Q10H [facility] Last Admin: 12/14/24 01:21 Dose: 100 mls/hr Documented By: CHRISTIANO Piperacillin Sod/Tazobactam (Sod 3.375 gm/ Sodium Chloride) 50 mls @ 100 mls/hr IV Q6H [facility] Last Infusion: 12/14/24 07:21 Dose: Infused Documented By: FLORENCIO Magnesium Hydroxide (Milk Of Magnesia 30 Ml Oral.Susp) 30 ml PO DAILY PRN PRN Reason: Constipation Melatonin (Melatonin 3 Mg Tablet) 6 mg PO BEDTIME PRN PRN Reason: Insomnia Sodium Chloride (0.9 % Sodium Chloride Flush 3 Ml Syringe) 3 ml IVFLUSH QSHIFT [facility] Last Admin: 12/14/24 07:16 Dose: Not Given Documented By: FLORENCIO Non-Admin Reason: IV Running <Farzaneh Way PA-C - Last Filed: 12/14/24 07:53> Labs CBC & Chem 7: 12/14/24 05:34 12/12/24 15:49 <Farzaneh [address] PA-C - Last Filed: 12/14/24 07:53> Labs: Laboratory Results - last 24 hr 12/13/24 12/14/24 08:02 05:34 MCV 91.3 91.7 MCH 30.0 30.1 MCHC 32.9 32.8 RDW 13.4 13.1 Plt Count 240 244 MPV 9.3 L 9.1 L Immature Gran % (Auto) 0.6 H 0.6 H Neut % (Auto) 83.8 H 79.8 H Lymph % (Auto) 7.9 L 11.4 L [place] % (Auto) 7.4 7.3 Eos % (Auto) 0.1 0.6 Baso % (Auto) 0.2 0.3 Lymph # (Auto) 1.3 1.3 [place] # (Auto) 1.2 0.8 Eos # (Auto) 0.0 0.1 Baso # (Auto) 0.0 0.0 Abs Immat Gran (auto) 0.09 H 0.07 H Absolute Neuts (auto) 13.7 H 9.0 H Absolute Nucleated RBC 0.000 0.000 Nucleated RBC % (auto) 0.0 0.0 <Farzaneh Way PA-C - Last Filed: 12/14/24 07:53> Microbiology Microbiology Results: Microbiology 12/12/24 18:52 Blood Culture - Preliminary Blood - Venous No growth after 24 hours. 12/12/24 18:52 Blood Culture - Preliminary Blood - Venous No growth after 24 hours. <Farzaneh Way PA-C - Last Filed: 12/14/24 07:53> Procedures Date of Service Date of Service: 12/14/24 <[address]h [address] PA-C - Last Filed: 12/14/24 07:53> 12/14/24 <Everton Patterson MD - Last Filed: 12/14/24 09:37> Progress Note: A&P Assessment and plan (1) Diverticulitis: Status: Acute <Farzaneh Way PA-C - Last Filed: 12/14/24 07:53> Assessment and Plan: Continues to feel better Much less pain and tenderness WBC down No fever Stable vital signs Abdomen is soft, benign although tender in the left side Clinically much improved Okay to try clear liquids today Continue IV antibiotics Seen and examined independently <Everton Patterson MD - Last Filed: 12/14/24 09:37> Assessment and Plan: 54 year old male with no known PMH presenting with LLQ pain since Wednesday found to have diverticulitis with microperforation. Small extraluminal locules of air noted on CT. He continues to feel improved, clinically appearing well with less tenderness on exam. WBC count now downtrending, afebrile. Continue nonoperative measures for now with IVF, IV abx. Can advance to clear liquid diet. We did discuss there is a still a chance he may need surgical intervention but as long as he continues to improve, hopefully can avoid during current admission. If we can avoid during acute episode, recommended proceeding with sigmoid resection down the line once acute episode resolves to prevent recurrence. Will need colonoscopy prior. Patient and comfortable with plan. Seen with foreign language interpreter. <Farzaneh Way PA-C - Last Filed: 12/14/24 07:53> Time Spent With Patient Time: Total time managing care of this patient today ____ minutes. <Farzaneh Way PA-C - Last Filed: 12/14/24 07:53> Quality Stroke Does the patient have a stroke diagnosis?: No <DOLLY Tinoco Last Filed: 12/14/24 07:53> VTE Prior VTE?: No <Farzaneh Way PA-C - Last Filed: 12/14/24 07:53> VTE Risk Level:: Medical - moderate - high <DOLLY Tinoco Last Filed: 12/14/24 07:53> VTE Device Contraindication: Treatment Not Indicated <DOLLY Tinoco Last Filed: 12/14/24 07:53> VTE Drug Contraindication: N/A - Med Ordered <DOLLY Tinoco Last Filed: 12/14/24 07:53>
--- NOTE | 2024-12-14 09:42 | HO.PM.IMPN ---
Subjective Subjective Date of Service: 12/14/24 Interval History: Follow up on acute diverticulitis with micro perforation, pain is better, 04/17 starting liquid diet Physical Exam Vital Signs: Vital Signs: Last Vital Signs Temp 99.5 F 12/14/24 08:02 Pulse 79 12/14/24 08:16 Resp 18 12/14/24 08:16 BP 119/59 L 12/14/24 08:16 Pulse Ox 95 12/14/24 08:16 O2 Del Method Room Air 12/14/24 08:16 O2 Flow Rate 1 12/13/24 04:38 BMI result Body Mass Index 36.9 Const: Other: General: AO X 3, no acute distress Resp: CTA bilateral CVS: S1,S2,RRR GI: +BS, mod tenderness in LLQ, no distention, n guarding Skin: No rash Neuro: motor grossly intact Psych: appropriate affect Objective Data Active Medications Acetaminophen (Acetaminophen 325 Mg Tablet) 650 mg PO Q6H PRN PRN Reason: Pain, Mild 1-3,fever,headache Last Admin: 12/14/24 08:06 Dose: 650 mg Documented By: FLORENCIO Calcium Carbonate (Calcium Carbonate 750 Mg Tab.Chew) 750 mg PO Q4H PRN PRN Reason: Heartburn Heparin Sodium (Porcine) (Heparin Sodium,Porcine 5,000 Unit/Ml Vial) 5,000 unit SUBCUT Q8H [facility] Last Admin: 12/14/24 03:42 Dose: 5,000 unit Documented By: CHRISTIANO Hydromorphone HCl (Hydromorphone Hcl 1 Mg/Ml Syringe) 0.5 mg IVPUSH Q4H PRN; Protocol PRN Reason: Breakthrough Pain Last Admin: 12/13/24 01:12 Dose: 0.5 mg Documented By: KIMBERLEY Dextrose/Sodium Chloride (D51/2ns) 1,000 mls @ 100 mls/hr IVCONT .Q10H [facility] Last Admin: 12/14/24 01:21 Dose: 100 mls/hr Documented By: CHRISTIANO Piperacillin Sod/Tazobactam (Sod 3.375 gm/ Sodium Chloride) 50 mls @ 100 mls/hr IV Q6H [facility] Last Infusion: 12/14/24 07:21 Dose: Infused Documented By: FLORENCIO Magnesium Hydroxide (Milk Of Magnesia 30 Ml Oral.Susp) 30 ml PO DAILY PRN PRN Reason: Constipation Melatonin (Melatonin 3 Mg Tablet) 6 mg PO BEDTIME PRN PRN Reason: Insomnia Sodium Chloride (0.9 % Sodium Chloride Flush 3 Ml Syringe) 3 ml IVFLUSH QSHIFT [facility] Last Admin: 12/14/24 07:16 Dose: Not Given Documented By: FLORENCIO Non-Admin Reason: IV Running Labs 12/14/24 05:34 12/12/24 15:49 Labs: Laboratory Results - last 24 hr 12/14/24 05:34 MCV 91.7 MCH 30.1 MCHC 32.8 RDW 13.1 Plt Count 244 MPV 9.1 L Immature Gran % (Auto) 0.6 H Neut % (Auto) 79.8 H Lymph % (Auto) 11.4 L [place] % (Auto) 7.3 Eos % (Auto) 0.6 Baso % (Auto) 0.3 Lymph # (Auto) 1.3 [place] # (Auto) 0.8 Eos # (Auto) 0.1 Baso # (Auto) 0.0 Abs Immat Gran (auto) 0.07 H Absolute Neuts (auto) 9.0 H Absolute Nucleated RBC 0.000 Nucleated RBC % (auto) 0.0 Microbiology Microbiology Results: Microbiology 12/12/24 18:52 Blood Culture - Preliminary Blood - Venous No growth after 24 hours. 12/12/24 18:52 Blood Culture - Preliminary Blood - Venous No growth after 24 hours. Assessment and Plan (1) Diverticulitis: Status: Acute (2) Syncope: Status: Acute Plan 54-year-old male with no significant past medical history presented to the hospital today with a chief complaint of abdominal pain. Admitted for following Acute Sigmoid diverticulitis with micro perforation, pain is better but still at risk of detelioration and worsening perforation and abscess, responding to treatment General surgery following, starting liquid diet today Continue IVF, IVF pain medication and monitor clinically with serial exam Continue Zosyn started 12/12/24, transition to PO Augmentin at discharge Syncope: Patient had a syncopal episode while in the bathroom in the ER. Likely vasovagal. Patient was found on the floor in the ER bathroom. CT head and CT C-spine showed no acute findings. EKG showed no evidence of blocks Telemetry x 24 and reasssess Orthostatic vitals - Echocardiogram No further testing indicated DVT prophylaxis: Subcu heparin Code status: Full code Need for inpt: acute diverticulitis with micro perf, high risk of perforation and detelioriation, needs serial exam and close monitoring Quality Stroke Does the patient have a stroke diagnosis?: No VTE Prior VTE?: No VTE Risk Level:: Medical - moderate - high VTE Device Contraindication: Treatment Not Indicated VTE Drug Contraindication: N/A - Med Ordered
--- NOTE | 2024-12-14 16:51 | PM.EVENT ---
Event Note Date of Service: 12/14/24 Event Note: Says he feels well Denies significant abdominal pain Passing flatus Abdomen Soft No significant tenderness currently No fever On clear liquids currently, hope to advance tomorrow Continue IV antibiotics Family at bedside Time Spent With Patient Time: Total time managing care of this patient today ____ minutes.
[2024-12-15] MEDS: 0.9 % Sodium Chloride Flush 3 ML SYRINGE IVFLUSH ×3 (00:20→18:09)
[2024-12-15 04:00] VITALS: BP 140/71; PULSE 66; RESP 18; TEMP 36.7; O2SAT 98
--- NOTE | 2024-12-15 07:37 | HO.PM.IMPN ---
Subjective Subjective Date of Service: 12/15/24 Interval History: No pain, tolerating liquid diet Physical Exam Vital Signs: Vital Signs: Last Vital Signs Temp 98.1 F 12/15/24 04:00 Pulse 66 12/15/24 04:00 Resp 18 12/15/24 04:00 BP 140/71 H 12/15/24 04:00 Pulse Ox 98 12/15/24 04:00 O2 Del Method Room Air 12/15/24 04:00 O2 Flow Rate 1 12/13/24 04:38 BMI result Body Mass Index 36.9 Const: Other: General: AO X 3, no acute distress Resp: CTA bilateral CVS: S1,S2,RRR GI: +BS, mod tenderness in LLQ, no distention, n guarding Skin: No rash Neuro: motor grossly intact Psych: appropriate affect Objective Data Active Medications Acetaminophen (Acetaminophen 325 Mg Tablet) 650 mg PO Q6H PRN PRN Reason: Pain, Mild 1-3,fever,headache Last Admin: 12/14/24 21:22 Dose: 650 mg Documented By: MICHELLE Calcium Carbonate (Calcium Carbonate 750 Mg Tab.Chew) 750 mg PO Q4H PRN PRN Reason: Heartburn Heparin Sodium (Porcine) (Heparin Sodium,Porcine 5,000 Unit/Ml Vial) 5,000 unit SUBCUT Q8H [facility] Last Admin: 12/15/24 05:45 Dose: 5,000 unit Documented By: MALLORY Hydromorphone HCl (Hydromorphone Hcl 1 Mg/Ml Syringe) 0.5 mg IVPUSH Q4H PRN; Protocol PRN Reason: Breakthrough Pain Last Admin: 12/13/24 01:12 Dose: 0.5 mg Documented By: KIMBERLEY Piperacillin Sod/Tazobactam (Sod 3.375 gm/ Sodium Chloride) 50 mls @ 100 mls/hr IV Q6H [facility] Last Infusion: 12/15/24 06:27 Dose: Infused Documented By: MALLORY Magnesium Hydroxide (Milk Of Magnesia 30 Ml Oral.Susp) 30 ml PO DAILY PRN PRN Reason: Constipation Melatonin (Melatonin 3 Mg Tablet) 6 mg PO BEDTIME PRN PRN Reason: Insomnia Sodium Chloride (0.9 % Sodium Chloride Flush 3 Ml Syringe) 3 ml IVFLUSH QSHIFT [facility] Last Admin: 12/15/24 00:20 Dose: 3 ml Documented By: MALLORY Labs 12/15/24 08:37 12/15/24 08:37 Labs: Laboratory Results - last 24 hr 12/14/24 05:34 MCV 91.7 MCH 30.1 MCHC 32.8 RDW 13.1 Plt Count 244 MPV 9.1 L Immature Gran % (Auto) 0.6 H Neut % (Auto) 79.8 H Lymph % (Auto) 11.4 L [place] % (Auto) 7.3 Eos % (Auto) 0.6 Baso % (Auto) 0.3 Lymph # (Auto) 1.3 [place] # (Auto) 0.8 Eos # (Auto) 0.1 Baso # (Auto) 0.0 Abs Immat Gran (auto) 0.07 H Absolute Neuts (auto) 9.0 H Absolute Nucleated RBC 0.000 Nucleated RBC % (auto) 0.0 Microbiology Microbiology Results: Microbiology 12/12/24 18:52 Blood Culture - Preliminary Blood - Venous No growth after 48 hours. 12/12/24 18:52 Blood Culture - Preliminary Blood - Venous No growth after 48 hours. Assessment and Plan (1) Diverticulitis: Status: Acute (2) Syncope: Status: Acute Plan 54-year-old male with no significant past medical history presented to the hospital today with a chief complaint of abdominal pain. Admitted for following Acute Sigmoid diverticulitis with micro perforation, pain is better but still at risk of detelioration and worsening perforation and abscess, responding to treatment General surgery following, presently on liquid diet, advance as hyun Continue IVF, IVF pain medication and monitor clinically with serial exam Continue Zosyn started 12/12/24, transition to PO Augmentin at discharge Syncope: Patient had a syncopal episode while in the bathroom in the ER. Likely vasovagal. Patient was found on the floor in the ER bathroom. CT head and CT C-spine showed no acute findings. EKG showed no evidence of blocks Telemetry x 24 and reasssess Orthostatic vitals - Echocardiogram No further testing indicated DVT prophylaxis: Subcu heparin Code status: Full code Need for inpt: acute diverticulitis with micro perf, high risk of perforation and detelioriation, needs serial exam and close monitoring Dispo: possibly home later today if tolerate diet Quality Stroke Does the patient have a stroke diagnosis?: No VTE Prior VTE?: No VTE Risk Level:: Medical - moderate - high VTE Device Contraindication: Treatment Not Indicated VTE Drug Contraindication: N/A - Med Ordered
[2024-12-15 07:52] VITALS: BP 122/57; PULSE 69; RESP 16; TEMP 36.3; O2SAT 95
--- NOTE | 2024-12-15 08:30 | PM.PNGS ---
Subjective Subjective Date of Service: 12/15/24 <Farzaneh Way PA-C - Last Filed: 12/15/24 08:32> 12/15/24 <Everton Patterson MD - Last Filed: 12/15/24 09:46> Interval history: Continues to feel better overall. Had bowel movements yesterday with some pain at the LLQ/suprapubic area but this resolved. He feels well this morning. Tolerating clear liquids, does not feel hungry. <Farzaneh Way PA-C - Last Filed: 12/15/24 08:32> Physical Exam Vital Signs: Vital Signs: Last Vital Signs Temp 97.4 F 12/15/24 07:52 Pulse 69 12/15/24 07:52 Resp 16 12/15/24 07:52 BP 122/57 L 12/15/24 07:52 Pulse Ox 95 12/15/24 07:52 O2 Del Method Room Air 12/15/24 07:52 O2 Flow Rate 1 12/13/24 04:38 BMI result Body Mass Index 36.9 <[address]h [address] PA-C - Last Filed: 12/15/24 08:32> Const: General: comfortable, no acute distress and alert <DOLLY Tinoco Last Filed: 12/15/24 08:32> Orientation/consciousness: patient oriented x3 <DOLLY Tinoco Last Filed: 12/15/24 08:32> Resp: Effort & Inspection: normal respiratory effort <DOLLY Tinoco Last Filed: 12/15/24 08:32> GI: Palpation (GI): Soft to palpation, Tenderness to palpation present (GI) (mild LLQ tenderness remains ), no guarding and not rigid <Farzaneh Way PA-C - Last Filed: 12/15/24 08:32> Skin: General skin exam: no rashes or lesions noted <DOLLY Tinoco Last Filed: 12/15/24 08:32> Neuro: General: patient oriented x3 and moves all extremities <DOLLY Tinoco Last Filed: 12/15/24 08:32> Objective Data Active Medications Acetaminophen (Acetaminophen 325 Mg Tablet) 650 mg PO Q6H PRN PRN Reason: Pain, Mild 1-3,fever,headache Last Admin: 12/14/24 21:22 Dose: 650 mg Documented By: MICHELLE Calcium Carbonate (Calcium Carbonate 750 Mg Tab.Chew) 750 mg PO Q4H PRN PRN Reason: Heartburn Heparin Sodium (Porcine) (Heparin Sodium,Porcine 5,000 Unit/Ml Vial) 5,000 unit SUBCUT Q8H [facility] Last Admin: 12/15/24 05:45 Dose: 5,000 unit Documented By: MALLORY Hydromorphone HCl (Hydromorphone Hcl 1 Mg/Ml Syringe) 0.5 mg IVPUSH Q4H PRN; Protocol PRN Reason: Breakthrough Pain Last Admin: 12/13/24 01:12 Dose: 0.5 mg Documented By: KIMBERLEY Piperacillin Sod/Tazobactam (Sod 3.375 gm/ Sodium Chloride) 50 mls @ 100 mls/hr IV Q6H [facility] Last Infusion: 12/15/24 06:27 Dose: Infused Documented By: MALLORY Magnesium Hydroxide (Milk Of Magnesia 30 Ml Oral.Susp) 30 ml PO DAILY PRN PRN Reason: Constipation Melatonin (Melatonin 3 Mg Tablet) 6 mg PO BEDTIME PRN PRN Reason: Insomnia Sodium Chloride (0.9 % Sodium Chloride Flush 3 Ml Syringe) 3 ml IVFLUSH QSHIFT [facility] Last Admin: 12/15/24 00:20 Dose: 3 ml Documented By: MALLORY <Farzaneh Way PA-C - Last Filed: 12/15/24 08:32> Labs CBC & Chem 7: 12/15/24 08:37 12/15/24 08:37 <DOLLY Tinoco Last Filed: 12/15/24 08:32> Microbiology Microbiology Results: Microbiology 12/12/24 18:52 Blood Culture - Preliminary Blood - Venous No growth after 48 hours. 12/12/24 18:52 Blood Culture - Preliminary Blood - Venous No growth after 48 hours. <DOLLY Tinoco Last Filed: 12/15/24 08:32> Procedures Date of Service Date of Service: 12/15/24 <DOLLY Tinoco Last Filed: 12/15/24 08:32> 12/15/24 <Everton Patterson MD - Last Filed: 12/15/24 09:46> Progress Note: A&P Assessment and plan (1) Diverticulitis: Status: Acute <Farzaneh Way PA-C - Last Filed: 12/15/24 08:32> Assessment and Plan: Continues to feel better Passing flatus and has BMs Abdomen is soft and benign Minimal tenderness left lower quadrant Looks well overall No fever Okay to slowly advance diet Possible DC home tomorrow on oral antibiotics Seen and examined independently <Everton Patterson MD - Last Filed: 12/15/24 09:46> Assessment and Plan: Some increased pain following BM yesterday, improved this morning. Tolerating clear liquids but does not feel ready for food. Overall clinically appearing well with benign abd exam and improving tenderness. Will advance to full liquids. Cont IV abx for now. Hopefully able to advance to solid diet later today or tomorrow and home if tolerating with oral abx. <Farzaneh Way PA-C - Last Filed: 12/15/24 08:32> Time Spent With Patient Time: Total time managing care of this patient today ____ minutes. <Farzaneh Way PA-C - Last Filed: 12/15/24 08:32> Quality Stroke Does the patient have a stroke diagnosis?: No <Farzaneh Way PA-C - Last Filed: 12/15/24 08:32> VTE Prior VTE?: No <Farzaneh Way PA-C - Last Filed: 12/15/24 08:32> VTE Risk Level:: Medical - moderate - high <Farzaneh Way PA-C - Last Filed: 12/15/24 08:32> VTE Device Contraindication: Treatment Not Indicated <DOLLY Tinoco Last Filed: 12/15/24 08:32> VTE Drug Contraindication: N/A - Med Ordered <DOLLY Tinoco Last Filed: 12/15/24 08:32>
[2024-12-15 08:59] LABS: Hematocrit 38.7 % (42.0-52.0); Hemoglobin 12.9 g/dl (14.0-18.0); Mean Corpuscular HGB Conc 33.3 g/dl (31.0-36.0); Mean Corpuscular Hemoglobin 30.0 pg (27.0-33.0); Mean Corpuscular Volume 90.0 fL (80.0-98.0); NRBC Abs Auto 0.000 X10*3/uL (0.0-0.012); NRBC Pct Auto 0.0 /100WBC (0.0-0.2); Platelet Count 282 X10*3/uL (160-400); Red Blood Count 4.30 X10*6/uL (4.60-5.80); White Blood Count 11.6 X10*3/uL (4.8-10.8)
[2024-12-15 09:11] LABS: Anion Gap 13 (12-20); Blood Urea Nitrogen 9 mg/dL (9-16); Calcium 8.5 mg/dL (8.4-10.2); Carbon Dioxide 24 mmol/L (22-29); Chloride 106 mmol/L (96-108); Creatinine Clr Calc Pharmacy 138.5; Estimated Glomerular Filt Rate > 60; Potassium 3.2 mmol/L (3.3-5.1); Sodium 140 mmol/L (135-145)
[2024-12-15 15:19] VITALS: BP 118/66; PULSE 63; RESP 14; TEMP 36.6; O2SAT 94
--- NOTE | 2024-12-15 18:15 | PC.NURSE ---
Pt tolerating full liquid and updgraded to a regular diet. BM today and no complaints of pain.
[2024-12-15 19:47] VITALS: BP 129/70; PULSE 70; RESP 18; TEMP 37.1; O2SAT 96
[2024-12-16 03:56] VITALS: BP 123/64; PULSE 60; RESP 17; TEMP 36.2; O2SAT 96
[2024-12-16] MEDS: 0.9 % Sodium Chloride Flush 3 ML SYRINGE IVFLUSH ×2 (07:34)
[2024-12-16 07:35] VITALS: BP 126/75; PULSE 60; RESP 16; TEMP 36.3; O2SAT 97
--- NOTE | 2024-12-16 08:46 | P.DS_ITS ---
DS: Providers Provider Date of Service: 12/16/24 Date of admission: 12/12/24 19:14 Date of discharge: 12/16/24 Primary care physician: Marv Workman MD Consults: 12/12/24 19:14 Consult to General Surgery Routine Consulting Provider: [facility] General Surgeons Reason for consultation: diverticulitis with micro perforation DS: Diagnosis Discharge Diagnosis (1) Diverticulitis: Status: Acute (2) Syncope: Status: Acute DS: Summary Hospital Course Hospital Course: admission hpi Chief Complaint: Abd pain 54-year-old male with no significant past medical history presented to the hospital today with a chief complaint of abdominal pain. Patient reported that for the past couple days he has been having abdominal pain located on the left lower quadrant; nonradiating, no SOB nausea vomiting or diarrhea. Reports feeling constipated. Went to the urgent care and gave him medications for constipation but he still did not have any bowel movement. Hence presented to the ER for further evaluation. Denies any chest pain or palpitations. Denies lightheadedness or dizziness. Denies any fever chills cough or sputum production. Review of all other systems is negative except mentioned above ER course: Per ER team, patient on presentation reported having abdominal pain; CT abdomen pelvis showed sigmoid diverticulitis with microperforation. ER team discussed with general surgery who suggested admission to the medicine service and IV antibiotics, no intervention for tonight. Patient in the ER went to the bathroom and while he was on the commode he properly passed out and patient was found on the floor. CT head and CT C-spine were done which showed acute findings. EKG showed no evidence of blocks. Blood pressure was stable. Hospital course: The patient was admitted with acute diverticulitis with microperforation and treated with intravenous piperacillin-tazobactam (Zosyn) for four days. He was closely monitored, received intravenous fluids and pain management, and was initially kept NPO. His symptoms gradually improved and have now resolved. General Surgery was consulted. On hospital day two, he was started on a liquid diet, which he tolerated well, and his diet was subsequently advanced to regular without issues. He will be transitioned to oral amoxicillin-clavulanate (Augmentin) at discharge to complete a total of 10 days of antibiotics. He will follow up with Surgery and Gastroenterology for a likely colonoscopy in the near future. Final diagnoses: Acute complicated diverticuliitis with microperforation Time Attestation Discharge Coordination Time (in mins): 40 Quality: Safe Use of Opioids Does Pt have an Active Cancer Diagnosis on the Problem List?: No Quality: Stroke Does the patient have a stroke diagnosis?: No Physical Exam Vital Signs: Vital Signs: Selected Entries 12/16/24 07:35 Temperature 97.4 F Pulse Rate 60 Respiratory Rate 16 Blood Pressure 126/75 Pulse Oximetry 97 Oxygen Delivery Me thod Room Air DS: Data Data Completed and Pending Labs on day of discharge: Preliminary micro results at discharge 12/12/24 18:52 Blood Culture - Preliminary Blood - Venous No growth after 48 hours. 12/12/24 18:52 Blood Culture - Preliminary Blood - Venous No growth after 48 hours. Discharge Plan Discharge Anticipated Discharge Date/Time: 12/16/24 08:46 Patient Disposition: Home, Self-Care Discharge Diagnosis: Acute diverticultis, syncope Referrals: Everton Patterson MD [Physician, General Surgery] - 2 Weeks Name,MD Marv [Primary Care Provider, Internal Medicine] - 1 Week Discharge Medications: New amoxicillin-pot clavulanate 875-125 mg tablet 1 tab PO BID Qty: 14 0RF Continued sennosides [senna] 8.6 mg Tablet 8.6 mg PO DAILY PRN (Reason: Constipation) dicyclomine 10 mg Capsule 10 mg PO TID PRN (Reason: Spasms) Discharge Orders: Discharge Order (Routine); Ordered 12/16/24 Ordered By: Stewart Mon Diet: Advance to usual diet Activity on Discharge: As tolerated Stand Alone Forms: Patient Portal Discharge page Print Language: Omani Care Plan Goals: recovery from acute diverticulitis with microperforationo Health Concerns: acute diverticulitis with microperforation Plan of Treatment: Take Augmentin as recommended and follow up with your doctor in a week, call for appointment follow up with surgery (Dr. Patterson), call for appointment Return to emergecy or call 911 if you experience return of the pain, nausea and vomiting or fever Assessment: see above
--- NOTE | 2024-12-16 08:56 | MHC.CM.PN ---
PT CLEARED TO DC HOME TODAY WITH NO SERVICES PT TO ARRANGE TRANSPORT
== END 2024-12-16 09:55 | disposition home or self-care (01) | DRG 244 ==
LOC: HO.ED 18:26 → HO.S3 12-13 05:17 → HO.EDOVER 12-13 11:57 → HO.S3 12-13 11:57
PROVIDERS: Hospitalist; Physician Assistant; Physician Assistant Surgical; Registered Nurse Emergency; Admitting Provider Internal Medicine; Emergency Provider Emergency Medicine; PCP Internal Medicine Geriatric Medicine; Visit Provider Internal Medicine
DX: K57.20 Diverticulitis of large intestine with perforation and abscess without bleeding (principal); R55 Syncope and collapse; Z79.899 Other long term (current) drug therapy
CPT/HCPCS: 36415; 70450; 71046; 72125; 74018; 74177; 80048; 80053; 81001; 82947; 83605; 84484; 85025; 85027; 87040; 93005; 93306; 99285; J1171; J1644; J2270; J2405; J2543; Q9957; Q9967

== ENCOUNTER → 2024-12-12 14:48 | Outpatient (BNV) | payer MEDICAID, SELFPAY | PROVIDERS: PCP Internal Medicine Geriatric Medicine; Visit Provider Radiology Diagnostic Radiology | DX: K57.32 Diverticulitis of large intestine without perforation or abscess without bleeding (principal); Z04.3 Encounter for examination and observation following other accident; K59.00 Constipation, unspecified | CPT/HCPCS: 70450; 71046; 72125; 74018; 74177 ==

== ENCOUNTER → 2024-12-12 16:04 | Outpatient (BNV) | payer MEDICAID, SELFPAY | PROVIDERS: Admitting Provider Internal Medicine; Emergency Provider Emergency Medicine; PCP Internal Medicine Geriatric Medicine; Visit Provider Internal Medicine Cardiovascular Disease | DX: R94.31 Abnormal electrocardiogram [ECG] [EKG] (principal); R55 Syncope and collapse | CPT/HCPCS: 93010 ==

== ENCOUNTER 2024-12-12 19:14 | Outpatient (BNV) | payer MEDICAID, SELFPAY | END 2024-12-13 07:00 | PROVIDERS: Admitting Provider Internal Medicine; Emergency Provider Emergency Medicine; PCP Internal Medicine Geriatric Medicine; Visit Provider Internal Medicine Cardiovascular Disease | DX: I77.810 Thoracic aortic ectasia (principal) | CPT/HCPCS: 93306 ==

== ENCOUNTER → 2024-12-12 19:14 | Outpatient (BNV) | payer MEDICAID, SELFPAY | PROVIDERS: Admitting Provider Internal Medicine; Emergency Provider Emergency Medicine; PCP Internal Medicine Geriatric Medicine; Visit Provider Internal Medicine | DX: K57.92 Diverticulitis of intestine, part unspecified, without perforation or abscess without bleeding (principal); R55 Syncope and collapse | CPT/HCPCS: 99222; 99232 ==

== ENCOUNTER → 2024-12-12 19:14 | Outpatient (BNV) | payer MEDICAID, SELFPAY | PROVIDERS: Admitting Provider Internal Medicine; Emergency Provider Emergency Medicine; PCP Internal Medicine Geriatric Medicine; Visit Provider Physician Assistant Surgical | DX: K57.92 Diverticulitis of intestine, part unspecified, without perforation or abscess without bleeding (principal) | CPT/HCPCS: 99222; 99232; 99499 ==

== ENCOUNTER 2025-01-03 08:32 | Outpatient (AMB) | payer MEDICAID, SELFPAY ==
--- NOTE | 2025-01-03 08:35 | A.OFFVIS_ITS ---
Vital Signs 01/03/25 08:52 Height 5 ft 10 in Weight 251 lb BMI 36.0 BP 149/75 H Blood Pressure Location Rt brachial Position Sitting Pulse 65 Intake Visit Reasons: Diverticulitis, microperf Intake Note: Pt c/o; LLQ discomfort last night, reports no fever, chills, nausea or vomiting. Hybrid Car Mechanic Required: Yes Hybrid Car Mechanic Language: Core Sticker Services: Hybrid Car Mechanic Present Hybrid Car Mechanic Name: Marissa Information Interpreted: non-clinical & clinical Accompanied by: Spouse Allergies No Known Allergies (No Known Allergies*) Allergy (Verified 01/03/25 08:53) Medication List - Last Reconciled 01/03/25 by Everton Patterson MD amoxicillin-pot clavulanate 875-125 mg 1 tab PO BID dicyclomine 10 mg PO TID PRN sennosides (senna) 8.6 mg PO DAILY PRN HPI HPI Diverticulitis, microperf: Details: 54-year-old male here for follow-up for acute diverticulitis. He was admitted to the hospital last 12/13/2024 because of his lower quadrant pain with a CAT scan showing acute diverticulitis of the sigmoid, with small locules of extraluminal air consistent with a microperforation. He was on IV antibiotics and was discharged after his 2nd hospital day. He seems to have been doing well since discharge. He has had mild occasional left lower quadrant pain. He is tolerating regular diet and has good bowel movements. He has had no fever or chills. [facility] Medical History (Updated 01/03/25 @ 08:52 by Everton Patterson MD) Morbid obesity Social History Household Members: Spouse Housing: House Do you presently have visiting nurse or other home services: No Alcohol intake: current Alcohol intake frequency: holidays/special occasions only Patient Tobacco Use Status: Never used Tobacco service: No Review of Systems Const Denies chills and Denies fever(s) Card Denies chest pain, Denies dyspnea and Denies dyspnea on exertion Resp Denies cough, Denies dyspnea and Denies dyspnea on exertion GI Denies hematochezia and Denies change in bowel habits Denies hematuria and Denies difficulty urinating Musc Denies back pain and Denies limited range of motion Neuro Denies focal weakness and Denies convulsions Psych Denies depression and Denies mood swings Physical Exam Const General: comfortable and no acute distress Nutritional Appearance: obese Orientation/consciousness: patient oriented x3 Neck Neck: Yes no lymphadenopathy Resp Auscultation: clear to auscultation bilaterally Cardio Rhythm: regular rhythm GI Palpation (GI): Soft to palpation, nontender and no guarding Neuro General: patient oriented x3 Assessment & Plan Assessment & Plan (1) Diverticulitis: Code(s): K57.92 - Diverticulitis of intestine, part unspecified, without perforation or abscess without bleeding Category: Medical Plan: He was admitted for acute diverticulitis with a microperforation earlier this month. This has resolved with antibiotic therapy I did explain to him that he is at risk for having recurrences in the future. I told him that in severe cases, he may need to have resection with a colostomy. He is morbidly obese I told him this predisposes him to severe episodes and recurrences. I had a long discussion with the about the benefits of weight loss to his overall health. I also instructed him to do high fiber diet he had he will also need to have a colonoscopy next year as he is due for this. He understands the above. His was with him during the visit and was involved with the discussion. Coding Level of Care Code Est Pt Level 3 (34816) Diagnoses Diverticulitis K57.92
[2025-01-03 08:52] VITALS: BP 149/75; PULSE 65; BMI 36.0
--- OUTSIDE RECORDS SUMMARY | 2025-01-03 08:57 | XMS_ITS | Encounter Summary ---
Author Organization [employer] Address [address] [place] [address] [address] [place] [address] Care Team Providers Care Vacuum Tank Tender Name Role Phone Name, Marv SALAZAR Primary Care Provider [phone] Encounter Details Date Type Department Care Team (Late st Contact Info) Description 07/13/2022 Abstract [facility] MEDICINE [address] [place] [address] [phone] NameMarv MD [address] [place] [address] [phone] Social History Tobacco Use Types Packs/Day Years [...] Care Team (Late st Contact Info) Description 01/08/2025 11:15 AM EST Office Visit [facility] MEDICINE [address] [place] [address] [phone] NameMarv MD [address] [place] [address] [phone] 06/07/2025 1:30 PM EDT Office Visit [facility] ADULT DENTAL [address] [place] [address] [phone] Yana Solorzano documented as of this encounter Procedures Procedure Name Priority Date/Time Associated Diagnosis Comments HM COLONOSCOPY Routine 01/23/2014 10:36 AM EST documented in this encounter Results * Colonoscopy (01/23/2014 10:36 AM EST) Colonoscopy Normal Normal Narrative Allie Clarke - 01/23/2014 10:36 AM EST Recommended 10 year follow up Historical Provider HEALTH MAINTENANCE Final Result documented in this encounter Visit Diagnoses Not on filedocumented in this encounter Care Teams Vacuum Tank Tender Relationship Specialty Start Date End Date Name, MD Marv [address] [place] [address] PCP - General Family Medicine 03/28/15 documented as of this encounter
--- OUTSIDE RECORDS SUMMARY | 2025-01-03 08:57 | XMS_ITS | Clinical Summary ---
Author Organization [employer] Address [address] [place] [address] 7 [place] [address] Care Team Providers Care Buttonholer Name Role Phone Name, Marv SALAZAR Primary Care Provider [phone] Allergies No known active allergies Medications atorvastatin (Lipitor) 20 MG tabletIndicatio ns:High cholesterol Take 1 tablet (20 mg) by mouth Once per day. 30 tablet 11 12/14/19 24 Active acyclovir (Zovirax) 400 MG tablet TAKE 1 TABLET BY MOUTH THREE TIMES DAILY FOR 10 DAYS 30 tablet 5 05/17/19 25 Active Blood Pressure kitIndications: Essential hypertension Use once a day 1 kit 11/07/19 25 Active Diclofenac Sodium 1 % gel APPLY 2 GRAMS TOPICALLY TO AFFECTED AREA(S) TWICE DAILY IN THE MORNING AND AT BEDTIME NEEDED 100 g 3 11/18/19 25 Active ibuprofen 600 MG tabletIndicatio ns:Chronic left shoulder pain TAKE 1 TABLET BY MOUTH THREE TIMES DAILY 90 tablet 1 12/05/19 25 Active amoxicillin-cla vulanate (Augmentin) 875-125 MG tablet Take 1 tablet by mouth. 12/16/19 25 Active BP Wash 10 % external washIndications :Folliculitis APPLY TOPICALLY TO THE AFFECTED AREA(S) EVERY DAY, LEAVE IN SHOWER 237 g 1 5 1:33 PM EST 12/26/19 25 Active lidocaine (Lidoderm) 5 % patch APPLY 1 PATCH TOPICALLY TO SKIN, LEAVE ON FOR 12 HOURS AND OFF FOR 12 HOURS DIRECTED 30 patch 2 12/26/19 25 Active clotrimazole (Lotrimin) 1 % cream APPLY TOPICALLY TO THE AFFECTED AREA(S) AND SURROUNDING AREA(S) TWICE DAILY IN THE MORNING AND IN THE EVENING DIRECTED 60 g 2 12/26/19 Active lidocaine (Lidoderm) 5 % patch APPLY 1 PATCH TOPICALLY TO SKIN, LEAVE ON FOR 12 HOURS AND OFF FOR 12 HOURS DIRECTED 30 patch 2 09/09/19 25 2024 Discontinued clotrimazole (Lotrimin) 1 % cream APPLY TO AFFECTED AREA(S) AND SURROUNDING AREA(S) TWICE DAILY IN THE MORNING AND EVENING 60 g 2 09/13/19 25 2024 Discontinued BENZAC AC WASH 10 % external washIndications :Folliculitis APPLY TOPICALLY EVERY DAY, LEAVE IN SHOWER 237 g 1 10/07/19 25 2024 Discontinued sennosides (Senokot) 8.6 MG tablet Take 1 tablet (8.6 mg) by mouth if needed each day for constipation for up to 10 days. 10 tablet 12/12/19 25 2024 dicyclomine (Bentyl) 10 MG capsule Take 1 capsule (10 mg) by mouth Every 6-8 hours as needed (abd pain) for up to 10 days. 30 capsule 12/12/19 25 2024 Active Problems Problem Noted Date Diagnosed Date [...] (03/10/2022): Normal [address] Helms at [place] Essential hypertension 01/22/2017 Genital herpes simplex 10/23/2015 Obesity 04/08/2015 Encounters Date Type Department Care Team Description 12/23/2024 Refill [facility] [address] [place] [phone] Pauly Phan DO 12/23/2024 Refill [facility] [address] [place] [phone] Marv Workman MD Folliculitis 12/19/2024 9:30 AM EST Office Visit [facility] [address] [place] [phone] Marv Workman MD Diverticulitis of large intestine, unspecified bleeding status, unspecified complication status (Primary Dx); Fever, unspecified fever cause; Viral upper respiratory tract infection 12/19/2024 Travel 12/18/2024 Telephone [facility] [address] [place] [phone] Estephania Arnett MA chart prep 12/13/2024 Telephone [facility] [address] [place] [phone] Marv Workman MD FYI 12/12/2024 Orders Only [facility] External Provider, [facility] 12/12/2024 Patient Outreach [facility] [address] [place] [address] Marv Workman MD Pre-visit Planning ([facility] unable to reach [facility]) 12/11/2024 1:40 PM EST Office Visit [facility] [address] [place] [phone] Tamara Contreras MD Left lower quadrant abdominal pain (Primary Dx); Diverticulosis of colon 12/11/2024 Results Follow-Up [facility] [address] [place] [phone] Tamara Contreras MD CBC auto differential, Sed Rate by Modified Westergren 12/11/2024 Travel 12/04/2024 Refill [facility] [address] [place] [address] Marv Workman MD Chronic left shoulder pain 11/22/2024 Refill [facility] [address] [place] [address] Name, MD Marv Chronic left shoulder pain 11/17/2024 Refill [facility] [address] [place] [address] Name, MD Marv 11/06/2024 Refill [facility] [address] [place] [address] Name, MD Marv Essential hypertension 10/26/2024 Telephone [facility] [address] [place] [address] Estephania Arnett [place] chart prep 10/06/2024 Refill [facility] [address] [place] [address] Name, MD Marv Folliculitis from Last 3 Months Immunizations Immunization Administration Dates Next Due Influenza injectable quadriv alent preservative free 12/30/2021,11/19/2020,11/06/2019 TD (adult), 2 Lf tetanus tox oid, preservative free, adsorbed 09/18/2020 Tdap 05/21/2010 Zoster, Recombinant 03/10/2022,01/06/2022 Social History Tobacco Use Types Packs/Day Years Used Date Smoking Tobacco: Never Passive Smoke Exposure: Never Smokeless Tobacco: Never Tobacco Cessation:Counseling Given: [...] Sign Reading Time Taken Comments Blood Pressure 132/84 12/19/2024 9:36 AM EST Pulse 102 12/19/2024 9:36 AM EST Temperature 38.1 C (100.6 F) 12/19/2024 9:36 AM EST Respiratory Rate 16 12/19/2024 9:36 AM EST Oxygen Saturation 98% 12/19/2024 9:36 AM EST Inhaled Oxygen Concentration - - Weight 114 kg (250 lb 6 oz) 12/19/2024 9:[address] Height 177.4 cm (5' 9.84 ) 12/19/2024 9:36 AM ES T Body Mass Index 36.1 12/19/2024 9:36 AM EST Plan of Treatment Upcoming Encounters Date Type Department Care Team (Late st Contact Info) Description 01/08/2025 11:15 AM EST Office Visit [facility] [address] [place] [address] Name, MD Marv [address] [place] [address] 06/07/2025 1:30 PM EDT Office Visit [facility] [address] [place] [address] Yana Solorzano Health Maintenance Due Date Last Done Comments [...] A1C 12/11/2025 025, 12/13/2023, 03/10/2022 Tobacco Screening 12/19/2025 12/19/2024 Lipid Panel 12/11/2029 12/11/2024, 11/0 05/2023, 01/14/2023, Additional history exists DTaP/Tdap/Td Vaccines [...] Procedure Name Priority Date/Time Associated Diagnosis Comments POCT INFLUENZA A (ID NOW RAPID MOLECULAR) Routine 12/19/2024 9:59 AM EST Fever, unspecified fever cause POCT INFLUENZA B (ID NOW RAPID MOLECULAR) Routine 12/19/2024 9:58 AM EST Fever, unspecified fever cause POCT RAPID COVID ANTIGEN Routine 12/19/2024 9:57 AM EST Fever, unspecified fever cause XR CHEST 2 VIEWS Routine 12/12/2024 7:32 [...] Recently Relevant to Health Maintenance Results * POCT Rapid Influenza A ROB ID NOW (12/19/2024 9:59 AM EST) Influenza A Negative Negative, Indeterminate [facility] QC Media Lot # [id number] [facility] Lot# Expiration Date [id number] [facility] Swab 12/19/2024 9:59 AM EST us Marv Workman MD POINT OF CARE TEST ENTER/EDIT OR DERABLES Final Result [facility] [address] [place] [phone] * POCT Rapid Influenza B ROB ID NOW (12/19/2024 9:58 AM EST) Influenza B Negative Negative, Indeterminate [facility] QC Media Lot # [id number] [facility] Lot# Expiration Date [facility] Swab 12/19/2024 9:58 AM EST us Marv Workman MD POINT OF CARE TEST ENTER/EDIT OR DERABLES Final Result [facility] [address] [place] [phone] * POCT Rapid Covid-19 BinaxNOW (12/19/2024 9:57 AM EST) Rapid COVID Ag Negative QC Media Lot # [id number] Lot# Expiration Date Swab 12/19/2024 9:57 AM EST Marv Workman MD POINT OF CARE TEST ENTER/EDIT OR DERABLES Final Result * XR Chest 2 Views (12/12/2024 7:32 PM EST) Anatomical Region Laterality Modality Chest Radiographic Iman ging 12/12/2024 7:32 PM EST Narrative 12/12/2024 7:33 PM EST [address] [address] XRay Report Signed Patient: Jaziel Barrett MR#: [id number] : 1970 Acct:[id number] Age/Sex: 54 / M ADM Date: 12/12/24 Loc: [place] [address]: Donovan Regan MD Ordering Physician: Kirit Ball Date of Service: 12/12/24 Procedure(s): XR chest 2V Accession Number(s): [id number] cc: Marv Workman MD; Kirit Ball Reason for Exam: trauma CLINICAL HISTORY: trauma --- Additional Notes or Special Instructions: Collared @ 77[facility] 2 view chest x-ray Comparison: None provided Findings: Hypoventilatory exam. No consolidation or effusion. Normal size heart. No acute fracture. IMPRESSION: 1. No acute findings. This document has been electronically signed by: Carrie Antonio MD on 12/12/2024 19:32:08 Dictated By: Carrie Antonio MD Signed By: <Electronically signed by Carrie Antonio MD in OV> 12/12/241932 DD/ 31 TD/TT: 12/12/241931 Trucker Hand: Procedure Note Donotuseinterpreter, Image - 12/12/2024 [place] [address] XRay Report Signed Patient: Jaziel Barrett GMR#: [id number] : 1970Acct:[id number] Age/Sex: 54 / MADM Date: 12/12/24 Loc: [place] [address]: Donovan Regan MD Ordering Physician: Kirit Ball Date of Service: 12/12/24 Procedure(s): XR chest 2V Accession Number(s): [id number] cc: Marv Workman MD; Kirit Ball Reason for Exam: trauma CLINICAL HISTORY: trauma --- Additional Notes or Special Instructions:Collared @ 0738 [facility] 2 view chest x-ray Comparison: None provided Findings: Hypoventilatory exam. No consolidation or effusion. Normal size heart. No acute fracture. IMPRESSION: 1. No acute findings. This document has been electronically signed by: Carrie Antonio MD on 12/12/2024 19:32:08 Dictated By: Carrie Anotnio MD Signed By: <Electronically signed by Carrie Antonio MD in OV> 12/12/241932 DD/ 31 TD/TT: 12/12/241931 Trucker Hand: [facility] External Provider IMG XR PROCEDURES Final Result * (ABNORMAL) Urinalysis, Complete, with Reflex to Culture (12/12/2024 6:26 PM EST) Color Urine Yellow [facility] Appearance Urine Clear [facility] PH 8.5 5.0 - 9.0 [facility] Glucose Urine UA Negative Negative mg/dL [facility] Urine Blood Trace(A) Negative [facility] Specific Ovid - Urine >=1.030(H) 1.005 - 1.025 [facility] Urine Protein Negative Neg-Trace mg/dL [facility] Urine Ketones Negative Negative mg/dL [facility] Nitrite Urine Negative Negative [facility] Leukocyte Esterase Urine Negative Negative [facility] RBC Urine 3-5(A) 0 - 2 /HPF [facility] Urine WBC 0-5 0 - 5 /HPF [facility] Urine Squamous Epithelial Cell 0-2 0 - 2 /HPF [facility] Urine Bacteria None Seen None Seen [facility] Hyaline Casts, Urine 0-2 0 - 2 /LPF [facility] 12/12/2024 6:26 PM EST 12/12/2024 6:32 PM EST Narrative [facility] - 12/12/2024 7:03 PM EST [id number], Clean Catch us Generic External Data Provider LAB URINE ORDERAB LES Final Result Performing Organization Address City/State/[facility] Co de Phone Number [facility] [address] [place] [phone] * (ABNORMAL) Urinalysis w/reflex microscopic (12/12/2024 6:26 PM EST) Color Urine Yellow [facility] Appearance Urine Clear [facility] PH 8.5 5.0 - 9.0 [facility] Glucose Urine UA Negative Negative mg/dL [facility] Urine Blood Trace(A) Negative [facility] Specific Ovid - Urine >=1.030(H) 1.005 - 1.025 [facility] Urine Protein Negative Neg-Trace mg/dL [facility] Urine Ketones Negative Negative mg/dL [facility] Nitrite Urine Negative Negative [facility] Leukocyte Esterase Urine Negative Negative [facility] 12/12/2024 6:26 PM EST 12/12/2024 6:32 PM EST Narrative [facility] - 12/12/2024 6:46 PM EST [id number], Clean Catch us Generic External Data Provider LAB URINE ORDERAB LES Final Result Performing Organization Address City/State/[facility] Co de Phone Number [facility] [address] [place] [phone] * CT Cervical Spine w/o Contrast (12/12/2024 6:12 PM EST) Anatomical Region Laterality Modality Spine, C-spine Computed Tomogra phy 12/12/2024 6:12 PM EST Narrative 12/12/2024 6:13 PM EST [address] [address] [address] Scan Report Signed Patient: Jaziel Barrett MR#: [id number] : 1970 Acct:[id number] Age/Sex: 54 / M ADM Date: 12/12/24 Loc: .ED Attending Dr: Ordering Physician: Kirit Ball Date of Service: 12/12/24 Procedure(s): CT cervical spine wo IV con Accession Number(s): [id number] cc: Marv Workman MD; Kirit Ball Report Number: [id number]: Total DLP = 809.38 mGy-cm Reason for [...] in OV> 12/12/241812 DD/ 11 TD/TT: 12/12/241811 Trucker Hand: Procedure Note Reneeter, Image - 12/12/[address] [address] [address] Scan Report Signed Patient: Jaziel Barrett GMR#: [id number] : 1970Acct:[id number] Age/Sex: 54 / MADM Date: 12/12/24 Loc: HO.ED Attending Dr: Ordering Physician: Kirit Ball Date of Service: 12/12/24 Procedure(s): CT cervical spine wo IV con Accession Number(s): [id number] cc: Name,Marv SALAZAR; Kirit Ball Report Number: [id number]: Total DLP = 809.38 mGy-cm Reason for [...] in OV> 12/12/241812 DD/ 11 TD/TT: 12/12/241811 Trucker Hand: us [facility] External Provider IMG CT PROCEDURES Final Result * CT Abdomen Pelvis w/ Contrast (12/12/2024 5:48 PM EST) Anatomical Region Laterality Modality Body, Pelvis, Abdomen Computed T omography 12/12/2024 5:48 PM EST Narrative 12/12/2024 5:50 PM EST [address] [place] [address] CT Scan Report Signed Patient: Jaziel Barrett MR#: [id number] : 1970 Acct:[id number] Age/Sex: 54 / M ADM Date: 12/12/24 Loc: HO.ED Attending Dr: Ordering Physician: Kirit Ball Date of Service: 12/12/24 Procedure(s): CT abdomen pelvis w IV con Accession Number(s): [id number] cc: Name,Marv SALAZAR; Kirit Ball Report Number: [id number]: Total DLP = 1083.18 mGy-cm Reason for [...] in OV> 12/12/241748 DD/ 47 TD/TT: 12/12/241747 Trucker Hand: Procedure Note Donotuseinterpreter, Image - 12/12/[address] [address] [address] Scan Report Signed Patient: Jaziel Barrett GMR#: [id number] : 1970Acct:[id number] Age/Sex: 54 / MADM Date: 12/12/24 Loc: HO.ED Attending Dr: Ordering Physician: Kirit Ball Date of Service: 12/12/24 Procedure(s): CT abdomen pelvis w IV con Accession Number(s): [id number] cc: Name,Marv SALAZAR; Kirit Ball Report Number: [id number]: Total DLP = 1083.18 mGy-cm Reason for [...] in OV> 12/12/241748 DD/ 47 TD/TT: 12/12/241747 Trucker Hand: [facility] External Provider IMG CT PROCEDURES Final Result * CT Head w/o Contrast (12/12/2024 5:44 PM EST) Anatomical Region Laterality Modality Head, Neck Computed Tomogra phy 12/12/2024 5:44 PM EST Narrative 12/12/2024 5:45 PM EST [address] [address] [address] Scan Report Signed Patient: Jaziel Barrett MR#: [id number] : 1970 Acct:[id number] Age/Sex: 54 / M ADM Date: 12/12/24 Loc: .ED Attending Dr: Ordering Physician: Kirit Ball Date of Service: 12/12/24 Procedure(s): CT head/brain wo IV con Accession Number(s): [id number] cc: Name,Marv SALAZAR; Kirit Ball Report Number: [id number]: Total DLP = 856.42 mGy-cm Reason for [...] in OV> 12/12/241743 DD/ 43 TD/TT: 12/12/241743 Trucker Hand: Procedure Note Donotuseinterpreter, Image - 12/12/[address] [address] [address] Scan Report Signed Patient: Jaziel Barrett GMR#: [id number] : 1970Acct:[id number] Age/Sex: 54 / MADM Date: 12/12/24 Loc: HO.ED Attending Dr: Ordering Physician: Kirit Ball Date of Service: 12/12/24 Procedure(s): CT head/brain wo IV con Accession Number(s): [id number] cc: Name,Marv SALAZAR; Kirit Ball Report Number: [id number]: Total DLP = 856.42 mGy-cm Reason for [...] in OV> 12/12/241743 DD/ 43 TD/TT: 12/12/241743 Trucker Hand: [facility] External Provider IMG CT PROCEDURES Final Result * High Sensitivity Troponin I (12/12/2024 4:44 PM EST) TROPONIN I HIGH SENSITIVITY <2.7 <3.5 - 35.0 ng/L [facility] Comment:The Rob high sens itivity Troponin-I results should beused in conjunction with other diagnostic information suchas ECG, clinical observations and information, and patientsymptoms to aid in the diagnosis of DE. 12/12/2024 4:44 PM EST 12/12/2024 4:48 PM EST Generic External Data Provider LAB BLOOD ORDERAB LES Final Result [facility] [address] [place] [phone] * (ABNORMAL) CBC auto differential (12/12/2024 3:49 PM EST) Only the most recent of2 resultswithin the time period is included. White Blood Count 12.9(H) 4.8 - 10.8 X10*3/uL [facility] Red Blood Count 4.82 4.60 - 5.80 X10*6/uL [facility] Hemoglobin 14.4 14.0 - 18.0 g/dl [facility] Hematocrit 44.0 42.0 - 52.0 % [facility] Mean Corpuscular Volume 91.3 80.0 - 98.0 fL [facility] Mean Corpuscular Hemoglobin 29.9 27.0 - 33.0 pg [facility] Mean Corpuscular HGB Conc 32.7 31.0 - 36.0 g/dl [facility] Red Cell Distribution Width 13.2 11.0 - 16.0 % [facility] Platelet Count 258 160 - 400 X10*3/uL [facility] Mean Platelet Volume 9.0(L) 9.4 - 12.4 fL [facility] Neutrophils Percent Auto 74.0(H) 45 - 73 % [facility] Imm Gran Pct Auto 0.5(H) 0.0 - 0.4 % [facility] Lymphocytes Percent Auto 14.0(L) 20 - 40 % [facility] Monocytes Percent Auto 10.4 2 - 11 % [facility] Eosinophils Percent Auto 0.7 0 - 4 % [facility] Basophils Percent Auto 0.4 0 - 2 % [facility] NRBC Pct Auto 0.0 0.0 - 0.2 /100WBC [facility] Neutrophils Absolute Auto 9.6(H) 2.0 - 8.3 x10*3/uL [facility] Imm Gran Abs Auto 0.07(H) 0.00 - 0.03 X10*3/uL [facility] Lymphocytes Absolute Auto 1.8 1.2 - 4.9 X10*3/uL [facility] Monocytes Absolute Auto 1.4(H) 0.1 - 1.2 X10*3/uL [facility] Eosinophils Absolute Auto 0.1 0.0 - 0.4 X10*3/uL [facility] Basophils Absolute Auto 0.1 0.0 - 0.2 X10*3/uL [facility] NRBC Abs Auto 0.000 0.0 - 0.012 X10*3/uL [facility] 12/12/2024 3:49 PM EST 12/12/2024 3:52 PM EST us Generic External Data Provider LAB BLOOD ORDERAB LES Final Result [facility] [address] [place] [address] [phone] * (ABNORMAL) Comprehensive Metabolic Panel (12/12/2024 3:49 PM EST) Only the most recent of2 resultswithin the time period is included. Sodium 140 135 - 145 mmol/L [facility] Potassium 3.8 3.3 - 5.1 mmol/L [facility] Comment:Slight Hemolysis.Int erpret result with caution. Chloride 102 96 - 108 mmol/L [facility] Carbon Dioxide 30(H) 22 - 29 mmol/L [facility] Anion Gap 12 12 - 20 [facility] Urea Nitrogen (BUN) 13 9 - 16 mg/dL [facility] Creatinine, Serum 0.87 0.5 - 1.4 mg/dL [facility] Creatinine Clr Calc Pharmacy 123.6 [facility] Comment:eGFR (calculated fro m the MDRD study equation) and eCrCl(calculated from the Cockcroft-Gault equation) are based ondifferent parameters and may not yield comparable results.If eCrCl result is absurd, please check patient'sheight/weight. Estimated Glomerular Filt Rate >60 [facility] Comment:Chronic Kidney Disea se: Estimated GFR < 60 mL/min/1.73x5Eoytaz Kidney Disease: Estimated GFR < 15 mL/min/1.73m2 Glucose 105 60 - 115 mg/dL [facility] Calcium 8.8 8.4 - 10.2 mg/dL [facility] Bilirubin, Total 2.0(H) 0.0 - 1.0 mg/dL [facility] Aspartate Amino Transferase 18 5 - 37 U/L [facility] Comment:Slight Hemolysis.Int erpret result with caution. Alanine Aminotransferase 16 0 - 40 U/L [facility] Total Protein 7.7 6.5 - 8.0 g/dL [facility] Albumin Level 4.2 3.5 - 5.0 g/dL [facility] Alkaline Phosphatase 62 39 - 117 U/L [facility] 12/12/2024 3:49 PM EST 12/12/2024 3:52 PM EST us Generic External Data Provider LAB BLOOD ORDERAB LES Final Result Performing Organization Address City/State/[facility] Co de Phone Number [facility] [address] [place] [address] [phone] * XR KUB and Upright 2 Views (12/12/2024 3:28 PM EST) Anatomical Region Laterality Modality Radiographic Iman ging 12/12/2024 3:28 PM EST Narrative 12/12/2024 3:41 PM EST [place] [address] XRay Report Signed Patient: Jaziel Barrett MR#: [id number] : 1970 Acct:[id number] Age/Sex: 54 / M ADM Date: 12/12/24 Loc: HO.ED Attending Dr: Ordering Physician: Petrona Florence NP Date of Service: 12/12/24 Procedure(s): XR KUB Accession Number(s): [id number] cc: Marv Workman MD; Petrona Florence NP [...] 12/12/24 1538 DD/ 1528 TD/TT: 12/12/24 1530 Trucker Hand: Procedure Note Donotuseinterpreter, Image - 12/12/2024 [place] [address] XRay Report Signed Patient: Jaziel Barrett GMR#: [id number] : 1970Acct:[id number] Age/Sex: 54 / MADM Date: 12/12/24 Loc: HO.ED Attending Dr: Ordering Physician: Petrona Florence NP Date of Service: 12/12/24 Procedure(s): XR KUB Accession Number(s): [id number] cc: Marv Workman MD; Petrona Florence NP [...] Shields MD in OV> 12/12/24 1538 DD/ TD/TT: 12/12/24 153 Trucker Hand: [facility] External Provider IMG XR PROCEDURES Final Result * (ABNORMAL) Sed Rate by Modified Dioren (12/11/2024 2:27 PM EST) Erythrocyte Sedimentation Rate 22(H) 0 - 15 MM/HR [facility] Comment:Patients with polycy themia and many hemoglobin abnormalitiesmay have depressed sed rates whereas patients with anemiamay have elevated sed rates. Blood Venous blood specimen / Unknown 12/11/2024 2:27 PM EST 12/11/2024 4:08 PM EST Tamara Contreras MD LAB BLOOD ORDERABLES Fin al Result Performing Organization Address City/[facility]/ZIP Co de Phone Number [facility] [address] [place] [phone] * PSA,Total (12/11/2024 2:27 PM EST) Pathologist [facility] Prostate Specific Antigen 1.64 <0.05 - 4.0 ng/mL [facility] Comment:PSA methodology: Darion Villalobos i ChemiluminescentMicroparticle Immunoassay (CMIA) Blood Venous blood specimen / Unknown 12/11/2024 2:27 PM EST 12/11/2024 4:08 PM EST Marv Workman MD LAB BLOOD ORDERABLES Final Resul t Performing Organization Address [facility] Co de Phone Number [facility] [address] [place] [phone] * Hemoglobin A1c (12/11/2024 2:27 PM EST) Hemoglobin A1c 5.8 <6.0 % [facility] Comment:Hemoglobin A1C Refer ence Range Adults: 4.8 - 6.0 % Non diabetic: < 6.0 % Goal: < 7.0 %Additional Action Suggested: > 8.0 %Note: Hemoglobin A1c results are invalid for patients with abnormal amounts of HbF. Blood transfusions may impact the HbA1c concentration in the patient sample. Estimated Average Glucose 120 mg/dL [facility] Comment:eAG = Estimated ave rage glucose which is %A1C expressed asaverage glucose, using the formula of the L6B-UvruelbRmcwlwa Glucose study (ADAG), Diabetes Care, Vol.31,#8,Sep. 2007 Blood Venous blood specimen / Unknown 12/11/2024 2:27 PM EST 12/11/2024 4:08 PM EST us Marv Name LAB BLOOD ORDERABLES Final Resul t [facility] [address] [place] [phone] * (ABNORMAL) Lipid Panel, Standard (12/11/2024 2:27 PM EST) Triglycerides 144 <150 mg/dL [facility] Comment:Desirable Triglyceri de: less than 150 mg/dLBorderline High Triglyceride 150-199 mg/dLHigh Triglyceride: 200-499 mg/dLVery High Triglyceride: greater than or equal to 5OO mg/dL Cholesterol 193 <200 mg/dL [facility] Comment:Desirable Cholestero l: less than 200 mg/dLBorderline High Cholesterol: 200-239 mg/dLHigh Cholesterol: greater than 239 mg/dL LDL Cholesterol Calculated 126(H) <100 mg/dL [facility] Comment:Desirable LDL: less than 100 mg/dLNear Optimal/Above Optimal LDL: 110- 129 mg/dLBorderline High LDL: 130-159 mg/dLHigh LDL: 160-189 mg/dLVery High LDL: greater than or equal to 190 mg/dL HDL Cholesterol 39(L) >40 mg/dL [facility] Comment:Desirable HDL: great er than 40 mg/dL Note: This HDL assay may give artificially low results in patients with liver disease. Blood Venous blood specimen / Unknown 12/11/2024 2:27 PM EST 12/11/2024 4:08 PM EST us Marv Workman MD LAB BLOOD ORDERABLES Final Resul t [facility] [address] [place] [address] [phone] * Hm Colonoscopy (01/23/2014 10:36 AM EST) Colonoscopy Normal Normal Narrative Allie Clarke - 01/23/2014 10:36 AM EST Recommended 10 year follow up Historical Provider HEALTH MAINTENANCE Final Result from Last 3 Months or Most Recently Relevant to Health Maintenance [place] [address] [place] [address] C3 [facility] MEDICAID STAND ADULT Advance Directives Documents on File Type Date Recorded Patient Wholesale Manager Expl anation Power of Community Placement Worker 12/18/2024 Care Teams Buttonholer Relationship Specialty Start Date End Date Name, MD Marv [address] [place] [id number] PCP - General Family Medicine 03/28/15
--- OUTSIDE RECORDS SUMMARY | 2025-01-03 08:57 | XMS_ITS | Encounter Summary ---
Author Organization [employer] Address [address] [place] [address] [place] [address] Care Team Providers Care Chicken And Fish Cleaner Name Role Phone Name, Marv SALAZAR Primary Care Provider [phone] Reason for Visit * Reason Comments Med Refill Encounter Details Date Type Department Care Team (Late st Contact Info) Description 04/28/2022 Refill [facility] [address] [place] [address] [phone] NameMarv MD [address] [place] [address] [phone] Social History Tobacco Use Types Packs/Day Years [...] Description 01/08/2025 11:15 AM EST Office Visit [facility] [address] [place] [address] [phone] Marv Workman MD [address] [place] [address] [phone] 06/07/2025 1:30 PM EDT Office Visit [facility] ADULT DENTAL [address] [place] [address] [phone] Solorzano, Yana documented as of this encounter Visit Diagnoses Not on filedocumented in this encounter Care Teams Chicken And Fish Cleaner Relationship Specialty Start Date End Date Name, MD Marv [address] [place] [address] PCP - General Family Medicine 03/28/15 documented as of this encounter
--- OUTSIDE RECORDS SUMMARY | 2025-01-03 08:57 | XMS_ITS | Encounter Summary ---
Author Organization [employer] Address [address] [place] [address] 7 [place] [address] Care Team Providers Care Ambulatory Services Representative Name Role Phone Name, Marv SALAZAR Primary Care Provider [phone] Reason for Visit * Reason Comments Med Refill Encounter Details Date Type Department Care Team ([facility] st Contact Info) Description 11/22/2024 Refill [facility] [address] [place], [place] [phone] Name, MD Marv [address] [place] [address] Chronic left shoulder pain Social History Tobacco [...] Description 01/08/2025 11:15 AM EST Office Visit [facility] [address] [place] [phone] NameMarv MD [address] [place] [phone] 06/07/2025 1:30 PM EDT Office Visit [facility] ADULT DENTAL [address] [place] [phone] Yana Solorzano documented as of this encounter Visit Diagnoses Diagnosis Chronic left shoulder pain Pain in joint, shoulder region documented in this encounter Additional Health Concerns Assessment Noted Time PHQ-9 Depression Total Score: 0 09/22/19 24 3:03 PM EDT documented as of this encounter Care Teams Ambulatory Services Representative Relationship Specialty Start Date End Date Marv Workman MD [address] [place] [phone] PCP - General Family Medicine 03/28/15 documented as of this encounter
--- OUTSIDE RECORDS SUMMARY | 2025-01-03 08:57 | XMS_ITS | Encounter Summary ---
Author Organization [employer] Address [address] [place] [address] 7 [place] [address] Care Team Providers Care Technical Editor Name Role Phone Name, Marv SALAZAR Primary Care Provider [phone] Reason for Visit * Reason Onset Date Comments FYI 12/13/2024 Encounter Details Date Type Department Care Team ([facility] st Contact Info) Description 12/13/2024 Telephone [facility] [address] [place], [place] [phone] Name, MD Marv [address] [place] [address] FYI Social History Tobacco Use Types Packs/Day [...] schedule HDF upon discharge. Message forwarded to [facility] team nurses for 12/14/24 on separate encounter. * Telephone Encounter - Marv Wu - 12/13/2024 8:44 AM EST Tc from pt spouse reporting that pt is currently admitted in [facility] since 12/12. Any questions contact pt at [phone] documented in this encounter Plan of Treatment Upcoming Encounters Date Type Department Care Team (Late st Contact Info) Description 01/08/2025 11:15 AM EST Office Visit [facility] [address] [place] [address] Name, MD Marv [address] [place] [address] 06/07/2025 1:30 PM EDT Office Visit [facility] ADULT DENTAL [address] [place] [address] Yana Solorzano documented as of this encounter Visit Diagnoses Not on filedocumented in this encounter Additional Health Concerns Assessment Noted Time PHQ-9 Depression Total Score: 0 09/22/19 24 3:03 PM EDT documented as of this encounter Care Teams Technical Editor Relationship Specialty Start Date End Date Name, MD Marv [address] [place] [address] PCP - General Family Medicine 03/28/15 documented as of this encounter
--- OUTSIDE RECORDS SUMMARY | 2025-01-03 08:57 | XMS_ITS | Encounter Summary ---
Author Organization [employer] Address [address] [place] [address] [place] [address] Care Team Providers Care Fulfillment Specialist Name Role Phone Name, Marv SALAZAR Primary Care Provider [phone] Reason for Visit * Reason Comments Med Refill Encounter Details Date Type Department Care Team (Late st Contact Info) Description 04/30/2022 Refill [facility] [address] [place] [address] [phone] NameMarv MD [address] [place] [address] [phone] Social History Tobacco Use Types Packs/Day Years [...] 11:15 AM EST Office Visit [facility] [address] [place] [address] [phone] Marv Workman MD [address] [place] [address] [phone] 06/07/2025 1:30 PM EDT Office Visit [facility] ADULT DENTAL [address] [place] [address] [phone] Solorzano, Yana documented as of this encounter Visit Diagnoses Not on filedocumented in this encounter Care Teams Fulfillment Specialist Relationship Specialty Start Date End Date Name, MD Marv [address] [place] [address] PCP - General Family Medicine 03/28/15 documented as of this encounter
== END 2025-01-03 08:54 | disposition home or self-care (01) ==
PROVIDERS: PCP Internal Medicine Geriatric Medicine; Visit Provider Surgery
DX: K57.92 Diverticulitis of intestine, part unspecified, without perforation or abscess without bleeding (principal)
CPT/HCPCS: 99213

== ENCOUNTER → 2025-01-03 08:32 | Outpatient (BNVA) | payer MEDICAID, SELFPAY | PROVIDERS: PCP Internal Medicine Geriatric Medicine; Visit Provider Surgery | DX: K57.92 Diverticulitis of intestine, part unspecified, without perforation or abscess without bleeding (principal); E66.01 Morbid (severe) obesity due to excess calories; Z68.36 Body mass index [BMI] 36.0-36.9, adult | CPT/HCPCS: 99212 ==